=== PATIENT | female | born 1945 | race Caucasian/White ===

== ENCOUNTER 2019-06-15 06:15 | Inpatient (IN) | payer OTHER ==
[2019-06-15] MEDS ORDERED: SODIUM CHLORIDE 1,000 ML IV STA (06:35)
--- NOTE | 2019-06-15 07:14 | PDOC ---
History of Present Illness <Elfego Mcgovern - Last Filed: 06/15/19 11:56> - History of Present Illness Initial Comments: Ms. Martínez is a 73 y/o female with PMH significant for anemia, DM, HTN, HLD, presenting today for two weeks of vomiting once per day and weakness. Reports that she has been vomiting for the past two weeks around once a day NBNB and went to see her PCP who told her it was viral gastroenteritis. Also reports that she has anemia and has felt "weak". Reports fever. Denies dizziness or shortness of breath. Denies headache/fall/chest pain/abdominal pain/changes in bowel/urinary symptoms. <Royal Weston - Last Filed: 06/15/19 18:47> - General Chief Complaint: Nausea/Vomiting Stated Complaint: VOMITING,WEAKNESS Time Seen by Provider: 06/15/19 07:08 Past History <Elfego Mcgovern - Last Filed: 06/15/19 11:56> - Past Medical History COPD: No Diabetes: Yes HTN: Yes Hypercholesterolemia: Yes - Psycho Social/Smoking Cessation Hx Smoking History: Never smoked Have you smoked in the past 12 months: No Information on smoking cessation initiated: No Hx Alcohol Use: No Drug/Substance Use Hx: No <Royal Weston - Last Filed: 06/15/19 18:47> - Past Medical History Allergies/Adverse Reactions: Allergies Allergy/AdvReac Type Severity Reaction Status Date / Time azithromycin [From Zithromax] Allergy Mild Verified 06/15/19 08:46 hydrochlorothiazide Allergy Mild Verified 06/15/19 06:40 [From Zestoretic] hydrocodone Allergy Mild Verified 06/15/19 06:40 lisinopril [From Zestoretic] Allergy Mild Verified 06/15/19 06:40 meclizine Allergy Mild Verified 06/15/19 06:40 Home Medications: Ambulatory Orders Aspirin 81 mg PO DAILY 06/15/19 Atenolol [Tenormin -] 50 mg PO DAILY 06/15/19 Atorvastatin Ca [Lipitor] 10 mg PO HS 06/15/19 Calcium Carbonate [Oyster Shell Calcium] 500 mg PO DAILY 06/15/19 Cholecalciferol (Vitamin D3) [Vitamin D3] 1,000 unit PO DAILY 06/15/19 Glipizide/Metformin HCl [Glipizide-Metformin 5-500 mg] 1 each PO BID 06/15/19 Omeprazole 40 mg PO DAILY 06/15/19 Sitagliptin Phosphate [Januvia] 50 mg PO BID 06/15/19 Telmisartan/Hydrochlorothiazid [Telmisartan-Hctz 80-12.5 mg Tb] 1 each PO DAILY 06/15/19 Review of Systems - Review of Systems Comments:: ROS GENERAL/CONSTITUTIONAL: Reports fever. No chills. Reports weakness. HEAD, EYES, EARS, NOSE AND THROAT: No change in vision. No change in hearing. No sore throat._ CARDIOVASCULAR: No chest pain or shortness of breath_ RESPIRATORY: Denies cough, hemoptysis_ GASTROINTESTINAL: Reports nausea and vomiting. No diarrhea or constipation._ GENITOURINARY: No dysuria, frequency, or change in urination._ MUSCULOSKELETAL: No joint or muscle swelling or pain. No neck or back pain._ SKIN: No rash_ NEUROLOGIC: No headache, vertigo, loss of consciousness, or change in strength/ sensation._ ENDOCRINE: No increased thirst. No abnormal weight change_ HEMATOLOGIC/LYMPHATIC: Reports anemia. No easy bleeding, or history of blood clots._ <Royal Weston - Last Filed: 06/15/19 18:47> *Physical Exam - Vital Signs Last Vital Signs Temp Pulse Resp BP Pulse Ox 99.5 F 112 H 18 110/55 L 97 06/15/19 09:14 06/15/19 11:01 06/15/19 11:01 06/15/19 11:01 06/15/19 11:01 <Elfego Mcgovern - Last Filed: 06/15/19 11:56> - Vital Signs Last Vital Signs Temp Pulse Resp BP Pulse Ox 97.5 F L 128 H 20 133/52 L 93 L 06/15/19 06:35 06/15/19 06:35 06/15/19 06:35 06/15/19 06:35 06/15/19 06:35 - Physical Exam Comments: GENERAL: Awake, alert, and oriented to person/place/time, in no acute distress_ HEAD: No signs of trauma, normocephalic, atraumatic _ EYES: PERRLA, EOMI, sclera anicteric, conjunctiva clear_ ENT: Hearing grossly normal, nares patent, oropharynx clear without exudates. No uvular deviation. Moist mucosa_ NECK: Normal ROM, supple, no lymphadenopathy, JVD, or masses_ LUNGS: No distress, speaks in full sentences, clear to auscultation bilaterally _ HEART: Regular rate and rhythm, normal S1 and S2, no murmurs appreciated, peripheral pulses normal and equal bilaterally._ ABDOMEN: Soft, nontender, normoactive bowel sounds. No guarding, no rebound. No masses_ EXTREMITIES: Normal inspection, Normal range of motion, no edema. No clubbing or cyanosis_ NEUROLOGICAL: Cranial nerves II through XII grossly intact. Normal speech, normal gait, no focal sensorimotor deficits _ SKIN: Warm, Dry, normal turgor, no rashes or lesions noted_ <Royal Weston - Last Filed: 06/15/19 18:47> ED Treatment Course - LABORATORY CBC & Chemistry Diagram: 06/15/19 07:38 06/15/19 07:00 - ADDITIONAL ORDERS Additional order review: Laboratory Results 06/15/19 06/15/19 06/15/19 09:04 08:00 07:38 PT with INR 15.40 H INR 1.30 H VBG pH 7.38 POC VBG pCO2 37.3 L POC VBG pO2 < 49 H VBG HCO3 21.5 L VBG O2 Sat (Otis) 51.6 L VBG Base Excess -2.7 L Sodium Potassium Chloride Carbon Dioxide Anion Gap BUN Creatinine Est GFR (CKD-EPI)AfAm Est GFR (CKD-EPI)NonAf Random Glucose Lactic Acid Calcium Total Bilirubin AST ALT Alkaline Phosphatase Troponin I Total Protein Albumin Lipase Urine Color Yellow Urine Appearance Cloudy Urine pH 5.0 Ur Specific [place] 1.032 Urine Protein 1+ H Urine Glucose (UA) Negative Urine Ketones Trace H Urine Blood 3+ H Urine Nitrite Negative Urine Bilirubin Negative Urine Urobilinogen 0.2 Ur Leukocyte Esterase Negative Urine WBC (Auto) 6 Urine RBC (Auto) 3 Urine Casts (Auto) 19 U Epithel Cells (Auto) 5.5 Urine Bacteria (Auto) 18.2 06/15/19 06/15/19 06/15/19 07:38 07:00 07:00 PT with INR INR VBG pH POC VBG pCO2 POC VBG pO2 VBG HCO3 VBG O2 Sat (Otis) VBG Base Excess Sodium 137 Potassium 3.5 Chloride 105 Carbon Dioxide 21 Anion Gap 12 BUN 24.9 H Creatinine 1.4 H Est GFR (CKD-EPI)AfAm 42.79 Est GFR (CKD-EPI)NonAf 36.92 Random Glucose 213 H Lactic Acid 3.0 H* Calcium 9.0 Total Bilirubin 0.5 AST 20 ALT 30 Alkaline Phosphatase 100 Troponin I < 0.02 Total Protein 6.8 Albumin 2.9 L Lipase 60 L Urine Color Urine Appearance Urine pH Ur Specific [place] Urine Protein Urine Glucose (UA) Urine Ketones Urine Blood Urine Nitrite Urine Bilirubin Urine Urobilinogen Ur Leukocyte Esterase Urine WBC (Auto) Urine RBC (Auto) Urine Casts (Auto) U Epithel Cells (Auto) Urine Bacteria (Auto) 06/15/19 07:38 RBC 3.88 MCV 73.0 L MCHC 32.2 RDW 17.2 H MPV 6.9 L Neutrophils % 89.9 H Lymphocytes % 4.7 L Monocytes % 5.1 Eosinophils % 0.0 Basophils % 0.3 - Medications Given in the ED: ED Medications Discontinued Medications Generic Name Dose Route Start Last Admin Trade Name Maxx PRN Reason Stop Dose Admin Acetaminophen 1,000 mg 06/15/19 07:29 06/15/19 07:48 Ofirmev Injection - IVPB 06/15/19 07:30 1,000 mg ONCE ONE Administration Sodium Chloride 1,000 mls @ 1,000 mls/hr 06/15/19 06:35 06/15/19 07:39 Normal Saline - IV 06/15/19 07:34 1,000 mls/hr ASDIR STA Administration Lactated Ringer's 1,000 ml 06/15/19 07:29 06/15/19 09:13 Lactated Ringers Solution IV 06/15/19 07:30 1,000 ml ONCE ONE Administration <Elfego Mcgovern - Last Filed: 06/15/19 11:56> - LABORATORY CBC & Chemistry Diagram: 06/15/19 07:38 06/15/19 07:00 <Royal Weston - Last Filed: 06/15/19 18:47> Medical Decision Making - Medical Decision Making 06/15/19 07:30 73F hx DM HTN HLD anemia presenting with two weeks of intermittent vomiting, anemia, weakness. Seen by PCP x2 who attributed it to viral gastroenteritis. -CBC, CMP -UA/UC -EKG, trop, CXR -lipase, lactic acid -blood cx 06/15/19 0730 EKG shows sinus tachycardia, 126 bpm, no ST elevation/depression, no axis deviation, QTc 477. 06/15/19 08:07 Labs reviewed. WBC elevated. Mildly anemic. 06/15/19 08:29 Lactic acid elevated at 3.0. Will rpt after fluids. 06/15/19 1200 Rpt lactic acid 1.9 UA does not show signs of UTI D/w the hospitalist who agrees to accept the patient for sepsis. <Royal Weston - Last Filed: 06/15/19 18:47> Discharge - Discharge Information Problems reviewed: Yes - Admission Yes <Elfego Mcgovern - Last Filed: 06/15/19 11:56> <Royal Weston - Last Filed: 06/15/19 18:47> - Discharge Information Clinical Impression/Diagnosis: Sepsis Qualifiers: Sepsis type: sepsis due to unspecified organism Sepsis acute organ dysfunction status: unspecified Qualified Code(s): A41.9 - Sepsis, unspecified organism Condition: Stable
[2019-06-15] MEDS ORDERED: LACTATED RINGERS SOLUTION 1000 ML INFUS.BAG IV ONE (07:29)
[2019-06-15] MEDS ORDERED: ACETAMINOPHEN 1000 MG/100 ML VIAL (NON FORMULARY) IVPB ONE ×2 (07:29→16:50)
--- NOTE | 2019-06-15 07:29 | PDOC ---
Attending Attestation - Resident Resident Name: Rodger Westonhan - ED Attending Attestation I have performed the following: I have examined & evaluated the patient, The case was reviewed & discussed with the resident, I agree w/resident's findings & plan - HPI HPI: 06/15/19 08:43 73 y/o female with PMH significant for anemia, DM, HTN, HLD, presenting today for two weeks of vomiting once per day and generalized weakness. Reports that she has been vomiting for the past two weeks around once a day NBNB and went to see her PCP who told her it was viral gastroenteritis. Also reports that she has anemia and has felt "weak". Reports subjective fever, but did not take temp. decreased PO intake and fluids. Denies headache/fall/chest pain/abdominal pain/changes in bowel/urinary symptoms. Denies dizziness or shortness of breath. - Physicial Exam PE: 06/15/19 07:40 Agree with the resident's HPI and PE as documented in the electronic medical record. NAD, well appearing, EOMI, PERRL, nl conjunctiva, anicteric, very dry mucus membranes; neck supple. lungs clear, no respiratory distress, comfortable on RA.. +tachycardia. abdomen soft nontender. no rebound, guarding. Back nontender. no CVAT. GRANGER x4, no focal neuro deficits. No peripheral edema. normal color for ethnicity, WWP. no rashes 06/15/19 08:42 - Medical Decision Making 06/15/19 07:29 Vital Signs Temp Pulse Resp BP Pulse Ox 97.5 F L 128 H 20 133/52 L 93 L 06/15/19 06:35 06/15/19 06:35 06/15/19 06:35 06/15/19 06:35 06/15/19 06:35 VS reviewed, +febrile rectally, +tachycardic. normotensive, borderline sats DDX. pneumonia, viral syndrome, influenza/RSV, UTI, anemia, electrolyte/ metabolic derangements, dehydration. Basic laboratory results with significant leukocytosis of 20 1.8K, creatinine elevation 1.4, likely prerenal versus dehydration. Lactic elevated at 3, getting hydration and will repeat lactic UA neg for infection cxr clear, no pna given IV hydration. antipyretics. admit for FUO, pend cultures, holding abx for now, no clear source admit to [facility], ID cs as inpatient. 06/15/19 08:43 06/15/19 08:54 06/15/19 18:22
[2019-06-15] MEDS ORDERED: ACETAMINOPHEN INJECTION 100 ML IVPB ONE (07:42)
[2019-06-15 07:48] LABS: BASO % 0.3 % (0-2.0); HEMATOCRIT 28.3 % (32.4-45.2); HEMOGLOBIN 9.1 GM/dL (10.7-15.3); LYMPH % 4.7 % (8-40); MCH 23.5 pg (25.7-33.7); MCHC 32.2 g/dl (32.0-36.0); MEAN PLT VOLUME 6.9 fl (7.5-11.1); MONO % 5.1 % (3.8-10.2); NEUT % 89.9 % (42.8-82.8); PLATELET COUNT 415 K/MM3 (134-434); RBC 3.88 M/mm3 (3.60-5.2); RDW 17.2 % (11.6-15.6); WHITE BLOOD COUNT 21.8 K/mm3 (4.0-10.0)
[2019-06-15 08:00] LABS: INR 1.3 (0.83-1.09); PROTHROMBIN TIME (PATIENT) 15.4 SEC (9.7-13.0)
[2019-06-15 08:02] LABS: ALBUMIN 2.9 g/dl (3.4-5.0); BILIRUBIN,TOTAL 0.5 mg/dL (0.2-1); BLOOD UREA NITROGEN 24.9 mg/dL (7-18); CREATININE 1.4 mg/dL (0.55-1.3); TOT PROT 6.8 g/dl (6.4-8.2)
[2019-06-15 08:03] LABS: POTASSIUM 3.5 mmol/L (3.5-5.1)
[2019-06-15 08:17] LABS: VENOUS PC02 37.3 mmHg (38-52); VENOUS PH 7.38 (7.31-7.41)
[2019-06-15 08:24] LABS: VENOUS PO2 < 49 mmHg (28-48)
[2019-06-15 09:37] LABS: EPI CELLS 5.5 /HPF (0-5/HPF); HYALINE CASTS 19 /lpf (0-8); URINE APPEARANCE CLOUDY; URINE BACTERIA 18.2 /hpf (NEGATIVE); URINE BILIRUBIN NEGATIVE (NEGATIVE); URINE COLOR YELLOW; URINE GLUCOSE (UA) NEGATIVE (NEGATIVE); URINE KETONE TRACE (NEGATIVE); URINE LEUK ESTERASE NEGATIVE (NEGATIVE); URINE NITRITE NEGATIVE (NEGATIVE); URINE PROTEIN 1+ (NEGATIVE); URINE RBC 3 /hpf (0-4); URINE UROBILINOGEN 0.2 mg/dL (0.2-1.0); URINE WBC 6 /hpf (0-5)
[2019-06-15] MEDS ORDERED: METOCLOPRAMIDE HCL INJECTION 10 MG/2 ML VIAL IVPUSH PRN (11:11)
[2019-06-15] MEDS: SODIUM CHLORIDE 1,000 ML IV SCH (11:26)
[2019-06-15 12:22] LABS: ANISOCYTOSIS 1+; MACROCYTOSIS 0; OVALOCYTE 1+; PLATELET ESTIMATE NORMAL; TARGET CELLS 1+; TEAR DROP CELLS 1+
[2019-06-15] MEDS ORDERED: PROCHLORPERAZINE MALEATE 5 MG TABLET PO PRN (12:25)
[2019-06-15 12:31] VITALS: BMI 26.4
[2019-06-15] MEDS ORDERED: PROCHLORPERAZINE INJECTION 10 MG/2 ML VIAL IVPB PRN (13:03)
--- NOTE | 2019-06-15 13:14 | HP ---
CHIEF COMPLAINT: nausea vomting PCP:Dr. Gustavo Knowles HISTORY OF PRESENT ILLNESS: Patient is a 73 y/o female with a history of anemia, DM, HTN, and HLD who presents for nausea and vomiting. For the past two weeks the patient has been nauseous and vomiting. She has seen two different doctors who told her it is likely viral gastroenteritis but her symptoms have not resolved. She vomits 1-2 times a day and it is not associated with a certain time or food. She does not have any sick contacts. She denies ever having this before. The vomit is either food or water, denies any blood. She has never had a colonoscopy or endoscopy. Last monday she sent off a stool sample through her PCP for colon screening. She reports she has some mid back pain that has been going on for longer then two weeks. Her last bowel movement was this morning, small but normal. Denies any diarrhea. She denies fevers, chills, dysuria, headache or chest pain. Per patient her sugars are controlled in the morning but not typically controlled in the afternoon. ER course was notable for: (1)NS 2 L, lactic from 3>1.9 (2) (3) Recent Travel: PAST MEDICAL HISTORY: anemia, DM, HTN, and HLD PAST SURGICAL HISTORY:skin tag removed below left eye Social History: Smoking: denies Alcohol: denies Drugs: denies Allergies azithromycin [From Zithromax] Allergy (Mild, Verified 06/15/19 08:46) hydrochlorothiazide [From Zestoretic] Allergy (Mild, Verified 06/15/19 06:40) hydrocodone Allergy (Mild, Verified 06/15/19 06:40) lisinopril [From Zestoretic] Allergy (Mild, Verified 06/15/19 06:40) meclizine Allergy (Mild, Verified 06/15/19 06:40) HOME MEDICATIONS: Home Medications Medication Instructions Recorded Aspirin 81 mg PO DAILY 06/15/19 Atenolol [Tenormin -] 50 mg PO DAILY 06/15/19 Atorvastatin Ca [Lipitor] 10 mg PO HS 06/15/19 Calcium Carbonate [Oyster Shell 500 mg PO DAILY 06/15/19 Calcium] Cholecalciferol (Vitamin D3) 1,000 unit PO DAILY 06/15/19 [Vitamin D3] Glipizide/Metformin HCl 1 each PO BID 06/15/19 [Glipizide-Metformin 5-500 mg] Omeprazole 40 mg PO DAILY 06/15/19 Sitagliptin Phosphate [Januvia] 50 mg PO BID 06/15/19 Telmisartan/Hydrochlorothiazid 1 each PO DAILY 06/15/19 [Telmisartan-Hctz 80-12.5 mg Tb] REVIEW OF SYSTEMS CONSTITUTIONAL: Absent: fever, chills, diaphoresis, generalized weakness, malaise, loss of appetite, weight change HEENT: Absent: rhinorrhea, nasal congestion, throat pain, throat swelling, difficulty swallowing, mouth swelling, ear pain, eye pain, visual changes CARDIOVASCULAR: Absent: chest pain, syncope, palpitations, irregular heart rate, lightheadedness , peripheral edema RESPIRATORY: Absent: cough, shortness of breath, dyspnea with exertion, orthopnea, wheezing, stridor, hemoptysis GASTROINTESTINAL: nausea, vomiting, Absent: abdominal pain, abdominal distension, diarrhea, constipation, melena, hematochezia GENITOURINARY: Absent: dysuria, frequency, urgency, hesitancy, hematuria, flank pain, genital pain MUSCULOSKELETAL: Absent: myalgia, arthralgia, joint swelling, back pain, neck pain SKIN: Absent: rash, itching, pallor HEMATOLOGIC/IMMUNOLOGIC: Absent: easy bleeding, easy bruising, lymphadenopathy, frequent infections ENDOCRINE: Absent: unexplained weight gain, unexplained weight loss, heat intolerance, cold intolerance NEUROLOGIC: Absent: headache, focal weakness or paresthesias, dizziness, unsteady gait, seizure, mental status changes, bladder or bowel incontinence PSYCHIATRIC: Absent: anxiety, depression, suicidal or homicidal ideation, hallucinations. PHYSICAL EXAMINATION Vital Signs Temperature 98.7 F 06/15/19 12:17 Pulse Rate 116 H 06/15/19 12:17 Respiratory Rate 18 06/15/19 12:17 Blood Pressure 150/77 06/15/19 12:17 O2 Sat by Pulse Oximetry (%) 97 06/15/19 12:17 GENERAL: Awake, alert, and fully oriented, in no acute distress. HEAD: Normal with no signs of trauma. EYES: Pupils equal, round and reactive to light, extraocular movements intact, EARS, NOSE, THROAT: Moist mucous membranes. NECK: Normal range of motion, supple without lymphadenopathy, JVD, or masses. LUNGS: Breath sounds equal, clear to auscultation bilaterally. No wheezes, and no crackles. No accessory muscle use. HEART: tachy and rhythm, normal S1 and S2 without murmur, rub or gallop. ABDOMEN: Soft, nontender, not distended, normoactive bowel sounds, no guarding, no rebound, no masses. MUSCULOSKELETAL: tenderness to palpation over mid thoracic LOWER EXTREMITIES: 2+ pulses, warm, well-perfused. No calf tenderness. No peripheral edema. NEUROLOGICAL: sensation intact b/l, strength intact PSYCHIATRIC: Cooperative. Good eye contact. Appropriate mood and affect. SKIN: Warm, dry, normal turgor, no rashes or lesions noted, normal capillary refill. CBC, BMP 06/15/19 07:38 06/15/19 07:00 ASSESSMENT/PLAN: Patient is a 73 y/o female with a history of anemia, DM, HTN, and HLD who presents for nausea and vomiting. #Sepsis 2/2 to unknown source, nausea and vomiting - CXR clear for PNA, UA clear for UTI, possible abdominal source - f/u abd/pelvis CT w/o contrast - lactic acid resolved with NS, will continue NS - tylenol for fever or pain - hold htn medicine in setting of sepsis - QTC 477, compazine for nausea - protonix 40 IV daily #Mid back pain, chronic - likely age related arthritis vs fx - monitor for changes, if present low suscpicion for abscess as source of sepsis - tylenol for pain control #DELBERT - likely prerenal 2/2 to spesis - continue to trend creatinine - continue fluids #DM - BGM ACHS - SS - f/u A1C, r/o gastroparesis DVT ppx - heparin with elevated DELBERT FEN - low sodium, los sugar diet - NS DIspo: monitor on med surg Visit type - Emergency Visit Emergency Visit: Yes ED Registration Date: 06/15/19 Care time: The patient presented to the Emergency Department on the above date and was hospitalized for further evaluation of their emergent condition. - New Patient This patient is new to me today: Yes Date on this admission: 06/16/19 - Critical Care Critical Care patient: No ATTENDING PHYSICIAN STATEMENT I saw and evaluated the patient. I reviewed the resident's note and discussed the case with the resident. I agree with the resident's findings and plan as documented. SUBJECTIVE: OBJECTIVE: ASSESSMENT AND PLAN:
[2019-06-15] MEDS: HEPARIN NA (PORCINE) 5,000 UNITS/ML 1ML VIAL SQ SCH ×2 (13:30→22:37)
--- NOTE | 2019-06-15 13:46 | PN ---
Teaching Attending Note Name of Resident: Mary Camacho ATTENDING PHYSICIAN STATEMENT I saw and evaluated the patient. I reviewed the resident's note and discussed the case with the resident. I agree with the resident's findings and plan as documented. SUBJECTIVE: CC: N/V. HPI: 73 y/o lady with h/o DM , HTN, HLP, anemia, who presented with 2 week hx of N/V. her sx started 2 weeks ago and consist of nausea and vomiting twice a day, with no trigger. lately she was not able to tolerate any PO intake , last meal was soup yesterday. No fever at home but had one in ER. she saw her doctor twice in past two weeks and was told it is viral infection. she denies abd pain, or hematomesis or hematochezia. she has no FAIRBANKS , no rash, no sore throat, no FAIRBANKS . she reported back pain in middle of the back that started 2 weeks ago. she denies any trauma to the back. she does not have chronic back pain. she denies urinary sx . she denies diarrhea, but during exam she had stool on her leg from groin down to the foot. in ER , she had blood work and blood cx were sent OBJECTIVE: NAD. awake, alert, cooperative HEENT: Dry MM, no LAP in neck . Nl oropharynx, no thrush, Cv; RRR, 2/6 SM at LUSB Lungs: CATB. Abd: soft, NT, ND, nl BS . Ext : no edema or erythema over upper or LE . skiin no rash MS: no TTP over the whole spine and the paraspinal muscles Neuro: round equal reactive pupils, EOMI, no facial droop. uvula and tongue at mid line. strength 5/5 in upper and lower extremities proximally and distally . ( can't evaluate knee flexion and extension due to arthritis ) Cxray reviewed. EKG: reviewed , sinus tachy, L axis, QTc 477. ASSESSMENT AND PLAN: 73 y/o lady with h/o DM , HTN, HLP, anemia, who presented with 2 week hx of N/ V. she was found to have sepsis 1- Sepsis: unclear source yet. with N/V will look for abdominal source. although she denied diarrhea, she has stool on her whole entire leg. - will start with abdomen and pelvis CT scan with po contrast. can't give IV due to DELBERT - send c diff and stool cx if diarrhea - follow lactic acid - if CT of abdomen is negative , will try to look for spine source. at this point, she has no tenderness over spine on my exam. - will start with plain xray to T-spine. - UA is clean and cxray with no signs of infection. - IVF. - NPO until Ct results come back , then clears - compazine for nausea - follow blood cx 2- H/o DM: SSI for now. 3- DELBERT: likely pre-renal in the setting of poor po intake. - cont IVF 4- h/o HTN: resume tenormine 5-
--- NOTE | 2019-06-15 15:19 | CON.ID ---
Consult Consult Specialty:: infectious diseases Referred by:: Reason for Consultation:: fever,sepsis,leukocytosis - History of Present Illness Chief Complaint: shivering ,chills History of Present Illness: history obtained from the patient and family friend as patient cannot speak turkish fluently 73 y/o female with a history of anemia, DM, HTN, and HLD who presents for nausea and vomiting. For the past two weeks the patient has been nauseous and vomiting. She has seen two different doctors who told her it is likely viral gastroenteritis but her symptoms have not resolved. She vomits 1-2 times a day and she brings out mainly water. She does not have any sick contacts. She denies ever having this before. The vomit is either food or water, denies any blood. Last monday she sent off a stool sample through her PCP for colon screening. She reports she has some mid back pain that has been going on for longer then two weeks. Her last bowel movement was this morning, small but normal. Denies any diarrhea. She denies fevers, chills, dysuria, headache or chest pain. she mentions that what really worried her is the shaking - History Source History Provided By: Patient, Friend Limitations to Obtaining History: Language Barrier - Alcohol/Substance Use Hx Alcohol Use: No - Smoking History Smoking history: Never smoked Have you smoked in the past 12 months: No Home Medications - Allergies Allergies/Adverse Reactions: Allergies Allergy/AdvReac Type Severity Reaction Status Date / Time azithromycin [From Zithromax] Allergy Mild Verified 06/15/19 08:46 hydrochlorothiazide Allergy Mild Verified 06/15/19 06:40 [From Zestoretic] hydrocodone Allergy Mild Verified 06/15/19 06:40 lisinopril [From Zestoretic] Allergy Mild Verified 06/15/19 06:40 meclizine Allergy Mild Verified 06/15/19 06:40 - Home Medications Home Medications: Ambulatory Orders Aspirin 81 mg PO DAILY 06/15/19 Atenolol [Tenormin -] 50 mg PO DAILY 06/15/19 Atorvastatin Ca [Lipitor] 10 mg PO HS 06/15/19 Calcium Carbonate [Oyster Shell Calcium] 500 mg PO DAILY 06/15/19 Cholecalciferol (Vitamin D3) [Vitamin D3] 1,000 unit PO DAILY 06/15/19 Glipizide/Metformin HCl [Glipizide-Metformin 5-500 mg] 1 each PO BID 06/15/19 Omeprazole 40 mg PO DAILY 06/15/19 Sitagliptin Phosphate [Januvia] 50 mg PO BID 06/15/19 Telmisartan/Hydrochlorothiazid [Telmisartan-Hctz 80-12.5 mg Tb] 1 each PO DAILY 06/15/19 Review of Systems - Review of Systems Constitutional: reports: Chills, Fever Eyes: reports: No Symptoms HENT: reports: No Symptoms Neck: reports: No Symptoms Cardiovascular: reports: No Symptoms Respiratory: reports: No Symptoms Gastrointestinal: reports: Bloating, Diarrhea, Nausea, Vomiting Genitourinary: reports: No Symptoms Musculoskeletal: reports: No Symptoms Integumentary: reports: No Symptoms Neurological: reports: No Symptoms Endocrine: reports: No Symptoms Hematology/Lymphatic: reports: No Symptoms Psychiatric: reports: No Symptoms Physical Exam Vital Signs: Vital Signs Temperature 98.7 F 06/15/19 12:17 Pulse Rate 116 H 06/15/19 12:17 Respiratory Rate 18 06/15/19 12:17 Blood Pressure 150/77 06/15/19 12:17 O2 Sat by Pulse Oximetry (%) 97 06/15/19 12:17 Constitutional: Yes: Calm, Mild Distress, Other Eyes: Yes: Conjunctiva Clear, EOM Intact HENT: Yes: Atraumatic, Normocephalic Neck: Yes: Supple, Trachea Midline Cardiovascular: Yes: Regular Rate and Rhythm Respiratory: Yes: Regular, CTA Bilaterally Gastrointestinal: Yes: Soft, Hypoactive Bowel Sounds Musculoskeletal: Yes: WNL Extremities: Yes: WNL Neurological: Yes: Alert, Oriented Psychiatric: Yes: Alert, Oriented Labs: CBC, BMP 06/15/19 07:38 06/15/19 07:00 Imaging - Results Chest X-ray: Report Reviewed, Image Reviewed Assessment/Plan this patient who is septic looking coming to the hospital with fever,chills leukocytosis and not feeling well i have a suspicion that the pathology could be in the belly i am going to start her on zosyn also would suggest to get a ct of the abd pelvis and chest consider keeping pt npo for now hydration also viral await for all the cx once we have something we will decide further monitor fevers and wbc
[2019-06-15] MEDS ORDERED: DEXTROSE 5%-WATER - 50 ML IVPB ONE ×2 (15:32→18:38)
[2019-06-15] MEDS ORDERED: PIPERACILLIN/TAZOBACTAM 3.375 GM VIAL IVPB ONE ×2 (15:32→18:37)
[2019-06-15] MEDS: PIPERACILLIN/TAZOB 3.375 GM 3.375 GM in DEXTROSE 5%-WATER - 50 ML IVPB SCH ×2 (15:37→18:46)
[2019-06-15] MEDS ORDERED: PT OWN MED DRAWER 7, Y5N ONE (15:44)
[2019-06-15] MEDS ORDERED: INSULIN SLIDING SCALE (NOVOLOG) 1 VIAL SQ SCH (16:30)
[2019-06-15 17:58] LABS: URINE CRYSTALS MODERATE /hpf
--- NOTE | 2019-06-15 22:18 | HOSP ---
Subjective - Review of Symptoms Events since last encounter: ABD/CT indicative of stone in ureter, patient septic with positive blood cultures. Spoke to Urology, Dr. Villafana, patient needs urgent stent placement. He will come in [facility] to place stent. Patient on Zosyn. Physical Examination Vital Signs: Vital Signs Temperature 103 F H 06/15/19 16:47 Pulse Rate 118 H 06/15/19 16:47 Respiratory Rate 18 06/15/19 16:47 Blood Pressure 160/70 06/15/19 16:47 O2 Sat by Pulse Oximetry (%) 97 06/15/19 12:17 Labs: CBC, BMP 06/15/19 07:38 06/15/19 07:00 Visit type - Emergency Visit Emergency Visit: Yes ED Registration Date: 06/15/19 Care time: The patient presented to the Emergency Department on the above date and was hospitalized for further evaluation of their emergent condition. - New Patient This patient is new to me today: Yes Date on this admission: 06/16/19 - Critical Care Critical Care patient: No
[2019-06-15] MEDS ORDERED: ONDANSETRON 4 MG/2 ML VIAL IVPUSH PRN (22:37)
[2019-06-15] MEDS: INSULIN SLIDING SCALE (NOVOLOG) 1 VIAL SQ SCH (22:43)
[2019-06-15] MEDS ORDERED: LIDOCAINE HCL/PF 2% SDV 5ML VIAL ONE (22:44)
[2019-06-15] MEDS ORDERED: KETOROLAC TROMETHAMINE 30 MG/1 ML VIAL ONE (22:44)
[2019-06-15] MEDS ORDERED: PROPOFOL 20 ML ONE ×2 (22:45)
[2019-06-15] MEDS ORDERED: LACTATED RINGERS SOLUTION 1,000 ML IV SCH (22:45)
[2019-06-15] MEDS ORDERED: SUCCINYLCHOLINE CHLORIDE 200 MG/10 ML SYRINGE ONE (22:45)
[2019-06-15] MEDS ORDERED: PHENYLEPHRINE HCL 10 MG/1 ML SINGLE DOSE VIAL ONE (23:53)
[2019-06-16] MEDS ORDERED: EPHEDRINE SULFATE/0.9% NACL/PF 50 MG/10 ML SYRINGE NR ONE (00:04)
[2019-06-16] MEDS ORDERED: ESMOLOL HCL 200,000 MCG/20 ML VIAL ONE (00:07)
[2019-06-16] MEDS ORDERED: ACETAMINOPHEN 1000 MG/100 ML VIAL (NON FORMULARY) IVPB ONE (00:26)
[2019-06-16] MEDS ORDERED: LACTATED RINGERS SOLUTION 1,000 ML IV SCH (00:35)
[2019-06-16] MEDS ORDERED: METOPROLOL TARTRATE 5 MG/5 ML VIAL ONE ×2 (00:50→00:59)
[2019-06-16] MEDS ORDERED: ADENOSINE 6 MG/2 ML VIAL IVPUSH ONE (00:56)
[2019-06-16] MEDS ORDERED: METOPROLOL TARTRATE 5 MG/5 ML VIAL IVPUSH ONE (01:06)
[2019-06-16] MEDS ORDERED: PIPERACILLIN/TAZOBACTAM 3.375 GM VIAL IVPB ONE ×3 (01:48→17:39)
[2019-06-16] MEDS ORDERED: DEXTROSE 5%-WATER - 50 ML IVPB ONE ×3 (01:48→17:39)
[2019-06-16] MEDS ORDERED: PIPERACILLIN/TAZOB 3.375 GM 3.375 GM in DEXTROSE 5%-WATER - 50 ML IVPB SCH (02:15)
[2019-06-16] MEDS: PIPERACILLIN/TAZOB 3.375 GM 3.375 GM in DEXTROSE 5%-WATER - 50 ML IVPB SCH ×3 (02:20→17:45)
[2019-06-16] MEDS: sitaGLIPtin PHOSPHATE 50 MG TABLET PO SCH ×2 (06:38→16:30)
[2019-06-16] MEDS: HEPARIN NA (PORCINE) 5,000 UNITS/ML 1ML VIAL SQ SCH ×3 (06:38→21:08)
[2019-06-16] MEDS: INSULIN SLIDING SCALE (NOVOLOG) 1 VIAL SQ SCH ×3 (06:39→16:31)
[2019-06-16] MEDS ORDERED: glipiZIDE 5 MG TABLET (FP) PO SCH (07:00)
[2019-06-16] MEDS ORDERED: metFORMIN HCL 500 MG TABLET (FP) PO SCH (07:00)
[2019-06-16 07:43] LABS: BASO % 0.2 % (0-2.0); EOS % 0.4 % (0-4.5); HEMATOCRIT 23.9 % (32.4-45.2); HEMOGLOBIN 7.6 GM/dL (10.7-15.3); LYMPH % 7.4 % (8-40); MCH 23.1 pg (25.7-33.7); MCHC 31.8 g/dl (32.0-36.0); MEAN CELL VOLUME 72.6 fl (80-96); MEAN PLT VOLUME 7.2 fl (7.5-11.1); MONO % 3.5 % (3.8-10.2); NEUT % 88.5 % (42.8-82.8); PLATELET COUNT 276 K/MM3 (134-434); RBC 3.29 M/mm3 (3.60-5.2); RDW 17.5 % (11.6-15.6); WHITE BLOOD COUNT 17.8 K/mm3 (4.0-10.0)
--- NOTE | 2019-06-16 07:52 | CONS ---
DATE OF CONSULTATION: DATE OF DICTATION: 06/16/2019 Patient came to the emergency room, reported with a 2-week history of nausea and simply not feeling well. Patient was evaluated and reported also that she had been vomiting a number of times over the past 2 weeks. CAT scan was performed and revealed an obstructing calculus in the upper aspect of the left kidney approximately 9 x 13. Patient has been given IV Zosyn and will be brought to the operating room for placement of a ureteral stent with plans to address the obstructing stone at a later date. MD JEREMY SWAIN/[id number]
--- NOTE | 2019-06-16 08:04 | OP ---
DATE OF OPERATION: 06/16/2019 PREOPERATIVE DIAGNOSIS: Urosepsis with pedunculated left ureteral calculi. POSTOPERATIVE DIAGNOSIS: Urosepsis with pedunculated left ureteral calculi. PROCEDURE: Cystoscopy, left retrograde and placement of a left ureteral stent. DESCRIPTION OF PROCEDURE: Patient brought into the operating room where, after satisfactory general anesthesia using the Ventimask, she was carefully placed in lithotomy after the timeout was performed, then prepped and draped in the usual sterile fashion. Patient already had IV Zosyn on board. A 23-Australian cystoscope was passed per urethra into the bladder. The bladder was examined. There were no lesions in the bladder. Patient did have a lot of particulate matter and what appeared to be granules of sand in the bladder. The left orifice was identified and intubated with a Sensor wire over which a straight catheter was placed and then advanced proximally in the left ureter. Retrograde was performed and revealed an almost complete obstruction just distal to the left UPJ. The wire was reintroduced through the open-ended catheter and after some manipulation advanced into the left renal pelvis. A 6-Australian 24-cm in length double pigtail catheter with the string removed was then advanced over the wire and positioned with a curl in the renal pelvis confirmed on fluoroscopy and distally it was noted to curl in the bladder. Bladder was drained. Patient tolerated the procedure well. There were no complications and patient left the OR stable in satisfactory condition. MD JEREMY SWAIN/[id number]
[2019-06-16 08:21] LABS: ALBUMIN 2.1 g/dl (3.4-5.0); BILIRUBIN,TOTAL 0.4 mg/dL (0.2-1); BLOOD UREA NITROGEN 24.2 mg/dL (7-18); CALCIUM 7.6 mg/dL (8.5-10.1); CREATININE 1.3 mg/dL (0.55-1.3); MAGNESIUM 1.5 mg/dL (1.8-2.4); PHOSPHOROUS 4.1 mg/dL (2.5-4.9); POTASSIUM 3.4 mmol/L (3.5-5.1); TOT PROT 5.3 g/dl (6.4-8.2)
[2019-06-16] MEDS ORDERED: PATIENT'S OWN MEDICATION (NON-FORMULARY) (Omeprazole 40 MG) PO SCH (10:00)
[2019-06-16] MEDS ORDERED: PATIENT'S OWN MEDICATION (NON-FORMULARY) (Glipizide/Metformin Hcl [Glipizide-Metformin 5-5 PO SCH (10:00)
[2019-06-16] MEDS ORDERED: PATIENT'S OWN MEDICATION (NON-FORMULARY) (Telmisartan/Hydrochlorothiazid [Telmisartan-Hctz PO SCH (10:00)
[2019-06-16] MEDS ORDERED: HYDROCHLOROTHIAZIDE 12.5 MG CAPSULE (FP) PO SCH (10:00)
[2019-06-16] MEDS: VALSARTAN 160 MG TABLET (UD) PO SCH (10:13)
[2019-06-16] MEDS: ATENOLOL 50 MG TABLET (FP) PO SCH (10:13)
[2019-06-16] MEDS: ASPIRIN 81 MG CHEWABLE TABLETS PO SCH (10:13)
[2019-06-16] MEDS: CHOLECALCIFEROL (VIT D3) 1,000 UNIT (25 MCG) TABLET PO SCH (10:13)
[2019-06-16] MEDS: CALCIUM (OYSTER SHELL) 500 MG TABLET (FP) PO SCH (10:13)
[2019-06-16] MEDS: PANTOPRAZOLE SODIUM 40 MG VIAL IVPUSH SCH (10:14)
--- NOTE | 2019-06-16 11:05 | PN ---
Progress Note, Physician History of Present Illness: patient feels and looks much better no complaint post stent placement - Current Medication List Current Medications: Active Medications Acetaminophen (Tylenol -) 650 mg PO Q4H PRN PRN Reason: PAIN LEVEL 6-10 Aspirin (Asa -) 81 mg PO DAILY [facility] Last Admin: 06/16/19 10:13 Dose: 81 mg Atenolol (Tenormin -) 50 mg PO DAILY [facility] Last Admin: 06/16/19 10:13 Dose: 50 mg Atorvastatin Calcium (Lipitor -) 10 mg PO HS [facility] Calcium Carbonate (Os-Neeraj 500mg -) 500 mg PO DAILY [facility] Last Admin: 06/16/19 10:13 Dose: 500 mg Cholecalciferol (Vitamin D3 -) 1,000 unit PO DAILY [facility] Last Admin: 06/16/19 10:13 Dose: 1,000 unit Glipizide (Glucotrol -) 5 mg PO BIDAC [facility] Last Admin: 06/16/19 06:38 Dose: 5 mg Heparin Sodium (Porcine) (Heparin -) 5,000 unit SQ TID [facility] Last Admin: 06/16/19 06:38 Dose: 5,000 unit Hydrochlorothiazide (Hctz -) 12.5 mg PO DAILY [facility] Last Admin: 06/16/19 10:13 Dose: 12.5 mg Sodium Chloride (Normal Saline -) 1,000 mls @ 100 mls/hr IV ASDIR [facility] Last Admin: 06/15/19 11:26 Dose: 100 mls/hr Piperacillin Sod/Tazobactam (Sod 3.375 gm/ Dextrose) 50 mls @ 100 mls/hr IVPB Q8H-IV [facility]; Protocol Last Admin: 06/16/19 10:14 Dose: 100 mls/hr Lactated Ringer's (Lactated Ringers Solution) 1,000 mls @ 125 mls/hr IV ASDIR [facility] Last Admin: 06/16/19 02:19 Dose: 125 mls/hr Piperacillin Sod/Tazobactam (Sod 3.375 gm/ Dextrose) 50 mls @ 150 mls/hr IVPB Q12H [facility] Stop: 06/17/19 02:14 Insulin Aspart (Novolog Vial Sliding Scale -) 1 vial SQ ACHS [facility]; Protocol Last Admin: 06/16/19 10:23 Dose: 2 units Metformin HCl (Glucophage -) 500 mg PO BIDAC [facility] Last Admin: 06/16/19 06:38 Dose: 500 mg Ondansetron HCl (Zofran Injection) 4 mg IVPUSH Q6H PRN PRN Reason: NAUSEA AND/OR VOMITING Stop: 06/16/19 22:36 Pantoprazole Sodium (Protonix Iv) 40 mg IVPUSH DAILY [facility] Last Admin: 06/16/19 10:14 Dose: 40 mg Prochlorperazine Edisylate (Compazine Injection -) 10 mg IVPB Q6H PRN PRN Reason: NAUSEA AND/OR VOMITING Last Admin: 06/15/19 14:17 Dose: 10 mg Sitagliptin Phosphate (Januvia -) 50 mg PO BIDAC [facility] Last Admin: 06/16/19 06:38 Dose: 50 mg Valsartan (Diovan -) 320 mg PO DAILY [facility] Last Admin: 06/16/19 10:13 Dose: 320 mg - Objective Vital Signs: Vital Signs Temperature 98 F 06/16/19 09:21 Pulse Rate 99 H 06/16/19 09:21 Respiratory Rate 18 06/16/19 09:21 Blood Pressure 136/66 06/16/19 09:21 O2 Sat by Pulse Oximetry (%) 98 06/16/19 09:00 Constitutional: Yes: No Distress, Calm Respiratory: Yes: Regular, CTA Bilaterally Gastrointestinal: Yes: Normal Bowel Sounds, Soft Musculoskeletal: Yes: WNL Extremities: Yes: WNL Neurological: Yes: Alert, Oriented Psychiatric: Yes: Alert, Oriented Labs: CBC, BMP 06/16/19 07:12 06/16/19 07:12 INR, PTT INR 1.30 (0.83-1.09) H 06/15/19 07:38 Assessment/Plan hydronephrosis ureteric stone leukocytosis gm negative bacteremia sepsis plan continue abx will order repeat blood cx continue monitoring wbc rest as per the team
[2019-06-16] MEDS ORDERED: POTASSIUM CHLORIDE TABS 20 MEQ TABLET.ER (FP) PO ONE (13:12)
[2019-06-16] MEDS ORDERED: MAGNESIUM SULF 50% (8.12 MEQ/2 ML-1 GM VIAL) IVPB ONE (13:12)
--- NOTE | 2019-06-16 13:18 | PN ---
Progress Note (short form) - Note Progress Note: Subjective: No fever or chills. No [place] , no pain. no N/V events over night were noted for stent placement by urology Objective: Vital Signs: Last Vital Signs Temp Pulse Resp BP Pulse Ox 98 F 99 H 18 136/66 98 06/16/19 09:21 06/16/19 09:21 06/16/19 09:21 06/16/19 09:21 06/16/19 09:00 Laboratory Results - last 24 hr 06/15/19 06/15/19 06/15/19 09:04 15:26 16:39 WBC RBC Hgb Hct MCV MCH MCHC RDW Plt Count MPV Absolute Neuts (auto) Neutrophils % Lymphocytes % Monocytes % Eosinophils % Basophils % Nucleated RBC % Sodium Potassium Chloride Carbon Dioxide Anion Gap BUN Creatinine Est GFR (CKD-EPI)AfAm Est GFR (CKD-EPI)NonAf POC Glucometer 161 186 Random Glucose Hemoglobin A1c % Calcium Phosphorus Magnesium Total Bilirubin AST ALT Alkaline Phosphatase Total Protein Albumin U Pathogenic Cast Auto None seen Urine Crystals (Auto) Moderate 06/15/19 06/16/19 06/16/19 22:24 06:10 07:12 WBC 17.8 H RBC 3.29 L Hgb 7.6 L Hct 23.9 L D MCV 72.6 L MCH 23.1 L MCHC 31.8 L RDW 17.5 H Plt Count 276 D MPV 7.2 L Absolute Neuts (auto) 15.8 H Neutrophils % 88.5 H Lymphocytes % 7.4 L D Monocytes % 3.5 L Eosinophils % 0.4 D Basophils % 0.2 Nucleated RBC % 0 Sodium Potassium Chloride Carbon Dioxide Anion Gap BUN Creatinine Est GFR (CKD-EPI)AfAm Est GFR (CKD-EPI)NonAf POC Glucometer 242 149 Random Glucose Hemoglobin A1c % Calcium Phosphorus Magnesium Total Bilirubin AST ALT Alkaline Phosphatase Total Protein Albumin U Pathogenic Cast Auto Urine Crystals (Auto) 06/16/19 06/16/19 06/16/19 07:12 07:12 10:19 WBC RBC Hgb Hct MCV MCH MCHC RDW Plt Count MPV Absolute Neuts (auto) Neutrophils % Lymphocytes % Monocytes % Eosinophils % Basophils % Nucleated RBC % Sodium 142 Potassium 3.4 L Chloride 110 H Carbon Dioxide 21 Anion Gap 10 BUN 24.2 H Creatinine 1.3 Est GFR (CKD-EPI)AfAm 46.80 Est GFR (CKD-EPI)NonAf 40.38 POC Glucometer 154 Random Glucose 189 H Hemoglobin A1c % 7.6 H Calcium 7.6 L Phosphorus 4.1 Magnesium 1.5 L Total Bilirubin 0.4 AST 14 L ALT 22 Alkaline Phosphatase 72 Total Protein 5.3 L Albumin 2.1 L U Pathogenic Cast Auto Urine Crystals (Auto) Physical Exam: NAD. Awake, alert, cooperative HEENT: MMM Cv; RRR, 2/6 SM at LUSB Lungs: CATB. Abd: soft, NT, ND, nl BS. Ext : no edema or erythema over upper or LE. ASSESSMENT AND PLAN: 73 y/o lady with h/o DM , HTN, HLP, anemia, who presented with 2 week hx of N/ V. she was found to have sepsis 1- Sepsis 2/2 pyelonephritis in the setting of an obstructing L ureteral stone. - s/p cystoscopy and retrograde uretrogram and stent placement. - leukocytosis and renal function improved after relieving the obstruction - Blood cx + GNB. will repeat today - cont Zosyn - d/w Dr. Manning - Cont IVF 2- Obstructive L ureteral stone with hydronephrosis: - case d/w Dr. Villafana. - suspicion for uric acid stone as it is not visible on xray. - start Potassium citrate - she will follow in uro clinic in few days after dc 3- H/o DM: SSI for now. 4- DELBERT: Cr improved. - cont IVF 5- h/o HTN: cont Tenormine. 6- Microcytic anemia Anemia: with acute drop . - check iron studies - occult blood in stool - rest of w/u as out pt 7- DVT px : heparin sq Visit type - Emergency Visit Emergency Visit: Yes ED Registration Date: 06/15/19 Care time: The patient presented to the Emergency Department on the above date and was hospitalized for further evaluation of their emergent condition. - New Patient This patient is new to me today: No - Critical Care Critical Care patient: No
[2019-06-16] MEDS: SODIUM CHLORIDE 1,000 ML IV SCH (14:43)
[2019-06-16] MEDS: POTASSIUM CITRATE/CITRIC ACID 2 MEQ/ML ML PO SCH (15:16)
[2019-06-16] MEDS: ATORVASTATIN CA 10 MG TABLET (FP) PO SCH (21:08)
[2019-06-17] MEDS ORDERED: DEXTROSE 5%-WATER - 50 ML IVPB ONE ×2 (01:05→09:07)
[2019-06-17] MEDS ORDERED: PIPERACILLIN/TAZOBACTAM 3.375 GM VIAL IVPB ONE ×2 (01:05→09:07)
[2019-06-17] MEDS: PIPERACILLIN/TAZOB 3.375 GM 3.375 GM in DEXTROSE 5%-WATER - 50 ML IVPB SCH (01:41)
[2019-06-17] MEDS: SODIUM CHLORIDE 1,000 ML IV SCH ×3 (01:46→13:39)
[2019-06-17] MEDS: ACETAMINOPHEN 325 MG TABLET (FP) PO PRN ×2 (02:47→13:38)
[2019-06-17] MEDS ORDERED: INSULIN (NOVOLOG) ASPART 100 UNITS/ML 10ML VIAL ONE (06:09)
[2019-06-17] MEDS: INSULIN SLIDING SCALE (NOVOLOG) 1 VIAL SQ SCH ×3 (06:20→17:26)
[2019-06-17] MEDS: sitaGLIPtin PHOSPHATE 50 MG TABLET PO SCH ×2 (06:20→17:26)
[2019-06-17] MEDS: HEPARIN NA (PORCINE) 5,000 UNITS/ML 1ML VIAL SQ SCH ×3 (06:20→21:52)
[2019-06-17 07:32] LABS: BASO % 0.4 % (0-2.0); EOS % 0.9 % (0-4.5); HEMATOCRIT 24.6 % (32.4-45.2); HEMOGLOBIN 7.9 GM/dL (10.7-15.3); LYMPH % 7.6 % (8-40); MCH 23.3 pg (25.7-33.7); MCHC 31.9 g/dl (32.0-36.0); MEAN PLT VOLUME 7.5 fl (7.5-11.1); MONO % 3.9 % (3.8-10.2); NEUT % 87.2 % (42.8-82.8); PLATELET COUNT 262 K/MM3 (134-434); RBC 3.37 M/mm3 (3.60-5.2); RDW 17.4 % (11.6-15.6); WHITE BLOOD COUNT 12.9 K/mm3 (4.0-10.0)
[2019-06-17 08:16] LABS: BLOOD UREA NITROGEN 25.5 mg/dL (7-18); CALCIUM 7.9 mg/dL (8.5-10.1); CREATININE 1.2 mg/dL (0.55-1.3); MAGNESIUM 2.1 mg/dL (1.8-2.4); PHOSPHOROUS 2.9 mg/dL (2.5-4.9); POTASSIUM 3.7 mmol/L (3.5-5.1)
--- NOTE | 2019-06-17 09:46 | PN ---
Teaching Attending Note Name of Resident: Mary Doug ATTENDING PHYSICIAN STATEMENT I saw and evaluated the patient. I reviewed the resident's note and discussed the case with the resident. I agree with the resident's findings and plan as documented. SUBJECTIVE: Blowing Engineer Andres [id number] was used She has no abd pain, she feels better today. No N/V. had fever last night . OBJECTIVE: NAD. Awake, alert, cooperative HEENT: MMM, no facial droop Cv; RRR, 2/6 SM at LUSB Lungs: CATB. Abd: soft, NT, ND, nl BS.No CVA tenderness Ext: no edema or erythema over upper or LE. ASSESSMENT AND PLAN: 73 y/o lady with h/o DM , HTN, HLP, anemia, who presented with 2 week hx of N/ V. she was found to have sepsis 1- Sepsis 2/2 pyelonephritis in the setting of an obstructing L ureteral stone. Suspicion for uric acid stone - s/p cystoscopy and retrograde ureterogram and stent placement. - clinically improved and leukocytosis improved. but she is still having fevers - Blood cx with ESBL producing E coli. - change abx form zosyn to Ertapenem - ID eval pending for today -follow repeat blood cx today - Cont but decrease IVF 2- Obstructive L ureteral stone with hydronephrosis: - suspicion for uric acid stone as it is not visible on xray. - cont Potassium citrate - she will follow in uro clinic in few days after dc - She was made aware of the o=importance of f/u for stent removal 3- H/o DM: SSI for now. 4- DELBERT: Cr improved. - cont IVF 5- h/o HTN: cont Tenormine. 6- Microcytic anemia Anemia: with acute drop likley due to dilution. no signs of active bleed - iron studies pending - occult blood in stool - rest of w/u as out pt 7- Urinary retention : voiding trials. place bowers if needed 8- DVT px : heparin sq All above was explained to patient in details using skates operator phone
--- NOTE | 2019-06-17 10:17 | EKG ---
Test Reason : Blood Pressure : / mmHG Vent. Rate : 099 BPM Atrial Rate : 099 BPM P-R Int : 122 ms QRS Dur : 096 ms QT Int : 388 ms P-R-T Axes : 038 007 -02 degrees QTc Int : 497 ms NORMAL SINUS RHYTHM PROLONGED QT ABNORMAL ECG WHEN COMPARED WITH ECG OF 15-JUN-2019 07:01, ABERRANT CONDUCTION IS NO LONGER PRESENT Confirmed by RAIMUNDO WILSON MD ([id number]) on 06/17/2019 10:17:03 AM Referred By: Confirmed By:RAIMUNDO WILSON MD
[2019-06-17] MEDS: VALSARTAN 160 MG TABLET (UD) PO SCH (10:19)
[2019-06-17] MEDS: ASPIRIN 81 MG CHEWABLE TABLETS PO SCH (10:19)
[2019-06-17] MEDS: CALCIUM (OYSTER SHELL) 500 MG TABLET (FP) PO SCH (10:19)
[2019-06-17] MEDS: ATENOLOL 50 MG TABLET (FP) PO SCH (10:19)
[2019-06-17] MEDS: CHOLECALCIFEROL (VIT D3) 1,000 UNIT (25 MCG) TABLET PO SCH (10:19)
[2019-06-17] MEDS: POTASSIUM CITRATE/CITRIC ACID 2 MEQ/ML ML PO SCH (10:20)
[2019-06-17] MEDS: PANTOPRAZOLE SODIUM 40 MG VIAL IVPUSH SCH (10:20)
--- NOTE | 2019-06-17 10:55 | EKG ---
Test Reason : Blood Pressure : / mmHG Vent. Rate : 126 BPM Atrial Rate : 126 BPM P-R Int : 134 ms QRS Dur : 088 ms QT Int : 330 ms P-R-T Axes : 037 -01 012 degrees QTc Int : 477 ms SINUS TACHYCARDIA WITH PREMATURE ATRIAL COMPLEXES WITH ABERRANT CONDUCTION VOLTAGE CRITERIA FOR LEFT VENTRICULAR HYPERTROPHY NONSPECIFIC ST ABNORMALITY ABNORMAL ECG NO PREVIOUS ECGS AVAILABLE Confirmed by RAIMUNDO WILSON MD ([id number]) on 06/17/2019 10:54:43 AM Referred By: Confirmed By:RAIMUNDO WILSON MD
--- NOTE | 2019-06-17 11:37 | PN ---
Progress Note, Physician History of Present Illness: stable no new issues - Current Medication List Current Medications: Active Medications Acetaminophen (Tylenol -) 650 mg PO Q4H PRN PRN Reason: PAIN LEVEL 6-10 Last Admin: 06/17/19 02:47 Dose: 650 mg Aspirin (Asa -) [address] [facility] Last Admin: 06/17/19 10:19 Dose: 81 mg Atenolol (Tenormin -) [address] [facility] Last Admin: 06/17/19 10:19 Dose: 50 mg Atorvastatin Calcium (Lipitor -) [address] [facility] Last Admin: 06/16/19 21:08 Dose: 10 mg Calcium Carbonate (Os-Neeraj 500mg -) [address] [facility] Last Admin: 06/17/19 10:19 Dose: 500 mg Cholecalciferol (Vitamin D3 -) 1,[address] [facility] Last Admin: 06/17/19 10:19 Dose: 1,000 unit Heparin Sodium (Porcine) (Heparin -) 5,[address] [facility] Last Admin: 06/17/19 06:20 Dose: 5,000 unit Sodium Chloride (Normal Saline -) 1,000 mls @ 100 mls/hr IV ASDIR [facility] Last Admin: 06/17/19 01:46 Dose: 100 mls/hr Ertapenem 1 gm/ Sodium (Chloride) 50 mls @ 100 mls/hr IVPB DAILY [facility] Insulin Aspart (Novolog Vial Sliding Scale -) [address] [facility]; Protocol Last Admin: 06/17/19 06:20 Dose: 4 units Pantoprazole Sodium (Protonix Iv) [address] [facility] Last Admin: 06/17/19 10:20 Dose: 40 mg Potassium Citrate/Citric Acid (Cytra-K -) [address] [facility] Last Admin: 06/17/19 10:20 Dose: 20 meq Prochlorperazine Edisylate (Compazine Injection -) 10 mg IVPB Q6H PRN PRN Reason: NAUSEA AND/OR VOMITING Last Admin: 06/15/19 14:17 Dose: 10 mg Sitagliptin Phosphate (Januvia -) [address] [facility] Last Admin: 06/17/19 06:20 Dose: 50 mg Valsartan (Diovan -) [address] [facility] Last Admin: 06/17/19 10:19 Dose: 320 mg - Objective Vital Signs: Vital Signs Temperature 101.0 F H 06/17/19 02:00 Pulse Rate 100 H 06/17/19 02:00 Respiratory Rate 20 06/17/19 09:00 Blood Pressure 124/98 06/17/19 02:00 O2 Sat by Pulse Oximetry (%) 98 06/17/19 09:00 Constitutional: Yes: No Distress, Calm Cardiovascular: Yes: S1, S2 Respiratory: Yes: Regular, CTA Bilaterally Gastrointestinal: Yes: Normal Bowel Sounds, Soft Musculoskeletal: Yes: WNL Extremities: Yes: WNL Neurological: Yes: Alert, Oriented Psychiatric: Yes: Alert, Oriented Labs: CBC, BMP 06/17/19 06:30 06/17/19 06:30 INR, PTT INR 1.30 (0.83-1.09) H 06/15/19 07:38 Assessment/Plan hydronephrosis ureteric stone leukocytosis gm negative bacteremia sepsis plan esbl now abx changed to ertapenam await for repeat cx rest as per the team
--- NOTE | 2019-06-17 13:17 | PN ---
Physical Exam: SUBJECTIVE: Patient seen and examined in the morning. No acute events overnight. Patient has no complaints of chest pain, shortness of breath, cough, fever, chills, nausea, vomiting, diarrhea. OBJECTIVE: Vital Signs Period Temp Pulse Resp BP Sys/Ho Pulse Ox Last 24 Hr 98.2 F-101.0 F 96-105 18-20 124-140/68-98 98-98 GENERAL: The patient is awake, alert, and fully oriented, in no acute distress. Patient noted to be diaphoretic HEAD: Normal with no signs of trauma. EYES: PERRL, extraocular movements intact, sclera anicteric, conjunctiva clear. No ptosis. ENT: Ears normal, nares patent, oropharynx clear without exudates, moist mucous membranes. 2L NC in place. LUNGS: Breath sounds equal, clear to auscultation bilaterally, no wheezes, no crackles, no accessory muscle use. HEART: Regular rate and rhythm, S1, S2 without murmur, rub or gallop. ABDOMEN: Soft, nontender, nondistended, normoactive bowel sounds, no guarding EXTREMITIES: 2+ pulses, warm, well-perfused, no edema. NEUROLOGICAL: Cranial nerves II through XII grossly intact. Normal speech Laboratory Results - last 24 hr 06/16/19 06/16/19 06/17/19 16:30 17:10 00:24 WBC RBC Hgb Hct MCV MCH MCHC RDW Plt Count MPV Absolute Neuts (auto) Neutrophils % Lymphocytes % Monocytes % Eosinophils % Basophils % Nucleated RBC % Sodium Potassium Chloride Carbon Dioxide Anion Gap BUN Creatinine Est GFR (CKD-EPI)AfAm Est GFR (CKD-EPI)NonAf POC Glucometer 191 231 Random Glucose Calcium Phosphorus Magnesium Ferritin Stool Occult Blood Negative 06/17/19 06/17/19 06/17/19 06:16 06:30 06:30 WBC 12.9 H RBC 3.37 L Hgb 7.9 L Hct 24.6 L MCV 73.0 L MCH 23.3 L MCHC 31.9 L RDW 17.4 H Plt Count 262 MPV 7.5 Absolute Neuts (auto) 11.3 H Neutrophils % 87.2 H Lymphocytes % 7.6 L Monocytes % 3.9 Eosinophils % 0.9 D Basophils % 0.4 Nucleated RBC % 0 Sodium 141 Potassium 3.7 Chloride 110 H Carbon Dioxide 23 Anion Gap 8 BUN 25.5 H Creatinine 1.2 Est GFR (CKD-EPI)AfAm 51.56 Est GFR (CKD-EPI)NonAf 44.48 POC Glucometer 208 Random Glucose 204 H Calcium 7.9 L Phosphorus 2.9 Magnesium 2.1 Ferritin Stool Occult Blood 06/17/19 06/17/19 06:30 11:28 WBC RBC Hgb Hct MCV MCH MCHC RDW Plt Count MPV Absolute Neuts (auto) Neutrophils % Lymphocytes % Monocytes % Eosinophils % Basophils % Nucleated RBC % Sodium Potassium Chloride Carbon Dioxide Anion Gap BUN Creatinine Est GFR (CKD-EPI)AfAm Est GFR (CKD-EPI)NonAf POC Glucometer 234 Random Glucose Calcium Phosphorus Magnesium Ferritin 61.9 Stool Occult Blood Active Medications Generic Name Dose Route Start Last Admin Trade Name Freq PRN Reason Stop Dose Admin Acetaminophen 650 mg 06/15/19 11:11 06/17/19 02:47 Tylenol - PO 650 mg Q4H PRN Administration PAIN LEVEL 6-10 Aspirin 81 mg 06/16/19 10:00 06/17/19 10:19 Asa - PO 81 mg DAILY [facility] Administration Atenolol 50 mg 06/16/19 10:00 06/17/19 10:19 Tenormin - PO 50 mg DAILY [facility] Administration Atorvastatin Calcium 10 mg 06/16/19 22:00 06/16/19 21:08 Lipitor - PO 10 mg HS [facility] Administration Calcium Carbonate 500 mg 06/16/19 10:00 06/17/19 10:19 Os-Neeraj 500mg - PO 500 mg DAILY [facility] Administration Cholecalciferol 1,000 unit 06/16/19 10:00 06/17/19 10:19 Vitamin D3 - PO 1,000 unit DAILY [facility] Administration Heparin Sodium (Porcine) 5,000 unit 06/15/19 14:00 06/17/19 06:20 Heparin - SQ 5,000 unit TID [facility] Administration Ertapenem 1 gm/ Sodium 50 mls @ 100 mls/hr 06/17/19 10:00 Chloride IVPB DAILY [facility] Sodium Chloride 1,000 mls @ 50 mls/hr 06/17/19 12:09 Normal Saline - IV ASDIR [facility] Insulin Aspart 1 vial 06/16/19 16:30 06/17/19 11:58 Novolog Vial Sliding Scale - SQ 4 units TIDAC [facility] Administration Protocol Pantoprazole Sodium 40 mg 06/16/19 10:00 06/17/19 10:20 Protonix Iv IVPUSH 40 mg DAILY [facility] Administration Potassium Citrate/Citric Acid 20 meq 06/16/19 12:56 06/17/19 10:20 Cytra-K - PO 20 meq DAILY [facility] Administration Prochlorperazine Edisylate 10 mg 06/15/19 13:03 06/15/19 14:17 Compazine Injection - IVPB 10 mg Q6H PRN Administration NAUSEA AND/OR VOMITING Sitagliptin Phosphate 50 mg 06/16/19 07:00 06/17/19 06:20 Januvia - PO 50 mg BIDAC [facility] Administration Valsartan 320 mg 06/16/19 10:00 06/17/19 10:19 Diovan - PO 320 mg DAILY [facility] Administration ASSESSMENT/PLAN: 73 F with PMH of anemia, DM, HTN, HLD who presented with nausea vomiting and found to be septic secondary to pylenephritis caused by uretral stone in the left ureter. 1) Sepsis secondary to pyelonephritis -s/p cystoscopy and stent placement. -Urine culture shows lactose fermenting gram negative bacteria growing -Blood culture growing ESBL producing e.coli -WBC of 12.9 today -Ertapenem 1 gram started. -ID consulted, appreciate recs -NS decreased to 50 ml/hr -Compazine 10 mg IVPB Q6H PRN 2)L. urteral stone -stone was not visible on x-ray -stent in place -continue potassium citrate 20 meq 3)DELBERT -Creatinine 1.2, improving 3) DM II -Insulin sliding scale -Sitagliptin 50 mg BIDAC [facility] 4)HTN -Atenolol 50 mg Daily -Diovan 320 mg Daily 5) HLD -Atorvastatin 10 mg PO HS 6) Anemia -Iron studies show F: NS @ 50 ml/hr E: Monitor CMP N: Diabetic salt restricted diet DVT: Heparin 5000 SQ TID Dispo: Admitted to medicine. Visit type - Emergency Visit Emergency Visit: Yes ED Registration Date: 06/15/19 Care time: The patient presented to the Emergency Department on the above date and was hospitalized for further evaluation of their emergent condition. - New Patient This patient is new to me today: No - Critical Care Critical Care patient: No ATTENDING PHYSICIAN STATEMENT I saw and evaluated the patient. I reviewed the resident's note and discussed the case with the resident. I agree with the resident's findings and plan as documented. SUBJECTIVE: OBJECTIVE: ASSESSMENT AND PLAN:
[2019-06-17] MEDS: ERTAPENEM SODIUM 1 GM in SODIUM CHLORIDE 50 ML IVPB SCH (13:49)
[2019-06-17] MEDS ORDERED: MORPHINE SULFATE 2 MG/ML VIAL IVPUSH ONE (18:05)
--- NOTE | 2019-06-17 18:44 | PN ---
Progress Note (short form) - Note Progress Note: Patient resting comfortably though she does have some mild left flank pain WBC has come down significantly since stent placed and creatinine is now 1.2 Urine culture noted Please get serum uric acid and repeat urine to check pH Antibiotics as per medical service Push fluids For now, other than trying to get urine pH to around 6.7 nothing else for me to do. If we get her urine pH to that level will plan f/u CT in a few weeks to see if stone has dissolved
[2019-06-17] MEDS: ATORVASTATIN CA 10 MG TABLET (FP) PO SCH (21:52)
[2019-06-18] MEDS: SODIUM CHLORIDE 1,000 ML IV SCH (06:24)
[2019-06-18] MEDS: sitaGLIPtin PHOSPHATE 50 MG TABLET PO SCH ×2 (06:25→16:31)
[2019-06-18] MEDS: HEPARIN NA (PORCINE) 5,000 UNITS/ML 1ML VIAL SQ SCH ×3 (06:25→21:17)
[2019-06-18] MEDS: INSULIN SLIDING SCALE (NOVOLOG) 1 VIAL SQ SCH ×3 (06:29→16:39)
[2019-06-18 07:58] LABS: BASO % 0.5 % (0-2.0); EOS % 0.8 % (0-4.5); HEMATOCRIT 21.5 % (32.4-45.2); MCH 23.4 pg (25.7-33.7); MCHC 32.2 g/dl (32.0-36.0); MEAN CELL VOLUME 72.7 fl (80-96); MEAN PLT VOLUME 7.8 fl (7.5-11.1); MONO % 8.8 % (3.8-10.2); NEUT % 74.9 % (42.8-82.8); PLATELET COUNT 236 K/MM3 (134-434); RBC 2.96 M/mm3 (3.60-5.2); RDW 17.6 % (11.6-15.6); WHITE BLOOD COUNT 6.4 K/mm3 (4.0-10.0)
[2019-06-18 08:18] LABS: HEMOGLOBIN 6.9 GM/dL (10.7-15.3)
[2019-06-18 08:30] LABS: ALBUMIN 1.9 g/dl (3.4-5.0); BILIRUBIN,TOTAL 0.2 mg/dL (0.2-1); BLOOD UREA NITROGEN 21.9 mg/dL (7-18); CALCIUM 7.6 mg/dL (8.5-10.1); CREATININE 0.8 mg/dL (0.55-1.3); POTASSIUM 3.7 mmol/L (3.5-5.1)
[2019-06-18] MEDS ORDERED: KETOROLAC TROMETHAMINE 15 MG/ML VIAL IVPUSH PRN (08:48)
[2019-06-18] MEDS ORDERED: ACETAMINOPHEN 325 MG TABLET (FP) PO PRN (08:49)
[2019-06-18] MEDS ORDERED: INSULIN (NOVOLOG) ASPART 100 UNITS/ML 10ML VIAL ONE (10:15)
[2019-06-18] MEDS: CALCIUM (OYSTER SHELL) 500 MG TABLET (FP) PO SCH (10:25)
[2019-06-18] MEDS: ASPIRIN 81 MG CHEWABLE TABLETS PO SCH (10:25)
[2019-06-18] MEDS: ATENOLOL 50 MG TABLET (FP) PO SCH (10:25)
[2019-06-18] MEDS: VALSARTAN 160 MG TABLET (UD) PO SCH (10:25)
[2019-06-18] MEDS: ERTAPENEM SODIUM 1 GM in SODIUM CHLORIDE 50 ML IVPB SCH (10:25)
[2019-06-18] MEDS: PANTOPRAZOLE SODIUM 40 MG VIAL IVPUSH SCH (10:25)
[2019-06-18] MEDS: CHOLECALCIFEROL (VIT D3) 1,000 UNIT (25 MCG) TABLET PO SCH (10:25)
[2019-06-18] MEDS ORDERED: ACETAMINOPHEN 500 MG TABLET (FP) PO PRN ×2 (10:27→15:20)
[2019-06-18] MEDS: POTASSIUM CITRATE/CITRIC ACID 2 MEQ/ML ML PO SCH (10:28)
[2019-06-18 11:54] LABS: ANISOCYTOSIS 1+; MACROCYTOSIS 0; PLATELET ESTIMATE NORMAL
--- NOTE | 2019-06-18 12:06 | PN ---
Progress Note, Physician History of Present Illness: continues to have high hear rate repeat blood cx negative - Current Medication List Current Medications: Active Medications Acetaminophen (Tylenol -) 1,000 mg PO Q4H PRN PRN Reason: PAIN LEVEL 7 - 10 Aspirin (Asa -) 81 mg PO DAILY [facility] Last Admin: 06/18/19 10:25 Dose: 81 mg Atenolol (Tenormin -) 50 mg PO DAILY [facility] Last Admin: 06/18/19 10:25 Dose: 50 mg Atorvastatin Calcium (Lipitor -) 10 mg PO HS [facility] Last Admin: 06/17/19 21:52 Dose: 10 mg Calcium Carbonate (Os-Neeraj 500mg -) 500 mg PO DAILY [facility] Last Admin: 06/18/19 10:25 Dose: 500 mg Cholecalciferol (Vitamin D3 -) 1,000 unit PO DAILY [facility] Last Admin: 06/18/19 10:25 Dose: 1,000 unit Heparin Sodium (Porcine) (Heparin -) 5,000 unit SQ TID [facility] Last Admin: 06/18/19 06:25 Dose: 5,000 unit Ertapenem 1 gm/ Sodium (Chloride) 50 mls @ 100 mls/hr IVPB DAILY [facility] Last Admin: 06/18/19 10:25 Dose: 100 mls/hr Insulin Aspart (Novolog Vial Sliding Scale -) 1 vial SQ TIDAC [facility]; Protocol Last Admin: 06/18/19 11:22 Dose: 6 units Pantoprazole Sodium (Protonix Iv) 40 mg IVPUSH DAILY [facility] Last Admin: 06/18/19 10:25 Dose: 40 mg Potassium Citrate/Citric Acid (Cytra-K -) 20 meq PO DAILY [facility] Last Admin: 06/18/19 10:28 Dose: 20 meq Prochlorperazine Edisylate (Compazine Injection -) 10 mg IVPB Q6H PRN PRN Reason: NAUSEA AND/OR VOMITING Last Admin: 06/15/19 14:17 Dose: 10 mg Sitagliptin Phosphate (Januvia -) 50 mg PO BIDAC [facility] Last Admin: 06/18/19 06:25 Dose: 50 mg Valsartan (Diovan -) 320 mg PO DAILY [facility] Last Admin: 06/18/19 10:25 Dose: 320 mg - Objective Vital Signs: Vital Signs Temperature 99.6 F 06/18/19 10:30 Pulse Rate 181 H 06/18/19 10:40 Respiratory Rate 06/18/19 10:40 Blood Pressure 139/98 06/18/19 10:40 O2 Sat by Pulse Oximetry (%) 100 06/18/19 10:00 Constitutional: Yes: No Distress, Calm Cardiovascular: Yes: Tachycardia, S1, S2 Respiratory: Yes: Regular, CTA Bilaterally, On Nasal O2 Gastrointestinal: Yes: Normal Bowel Sounds, Soft Musculoskeletal: Yes: WNL Extremities: Yes: WNL Neurological: Yes: Alert, Oriented Psychiatric: Yes: Alert, Oriented Labs: CBC, BMP 06/18/19 06:20 06/18/19 06:20 INR, PTT INR 1.30 (0.83-1.09) H 06/15/19 07:38 Assessment/Plan hydronephrosis ureteric stone leukocytosis gm negative bacteremia sepsis plan continue abx will need 2 weeks rest as per the team
[2019-06-18 13:38] LABS: BASO % 0.5 % (0-2.0); EOS % 1.2 % (0-4.5); HEMATOCRIT 25.4 % (32.4-45.2); MCH 22.9 pg (25.7-33.7); MCHC 31.4 g/dl (32.0-36.0); MEAN CELL VOLUME 73.1 fl (80-96); MEAN PLT VOLUME 7.4 fl (7.5-11.1); MONO % 8.7 % (3.8-10.2); NEUT % 74.6 % (42.8-82.8); PLATELET COUNT 269 K/MM3 (134-434); RBC 3.47 M/mm3 (3.60-5.2); RDW 17.3 % (11.6-15.6); WHITE BLOOD COUNT 8.5 K/mm3 (4.0-10.0)
--- NOTE | 2019-06-18 13:43 | EKG ---
Test Reason : Blood Pressure : / mmHG Vent. Rate : 177 BPM Atrial Rate : 174 BPM P-R Int : 000 ms QRS Dur : 088 ms QT Int : 274 ms P-R-T Axes : 000 005 010 degrees QTc Int : 470 ms SUPRAVENTRICULAR TACHYCARDIA OTHERWISE NORMAL ECG WHEN COMPARED WITH ECG OF 16-JUN-2019 00:59, VENT. RATE HAS INCREASED BY 78 BPM NONSPECIFIC T WAVE ABNORMALITY HAS REPLACED INVERTED T WAVES IN INFERIOR LEADS Confirmed by MD Nikita, Raymond ([id number]) on 06/18/2019 1:43:05 PM Referred By: Guru DIMAS Confirmed By:Raymond Shelton MD
[2019-06-18] MEDS ORDERED: PROCHLORPERAZINE INJECTION 10 MG/2 ML VIAL IVPB PRN (15:20)
[2019-06-18] MEDS ORDERED: ATENOLOL 25 MG TABLET (FP) PO ONE (16:21)
--- NOTE | 2019-06-18 17:02 | PN ---
Physical Exam: SUBJECTIVE: Patient seen and examined. No acute events overnight. No complaints of chest pain, shortness of breath, cough, fever, chills, abdominal pain, nausea , vomiting, diarrhea. OBJECTIVE: Vital Signs Period Temp Pulse Resp BP Sys/Ho Pulse Ox Last 24 Hr 97.9 F-99.6 F 80-181 18-20 135-146/73-98 98-100 GENERAL: The patient is awake, alert, and fully oriented, in no acute distress. Patient noted to be diaphoretic HEAD: Normal with no signs of trauma. EYES: PERRL, extraocular movements intact, sclera anicteric, conjunctiva clear. No ptosis. ENT: Ears normal, nares patent, oropharynx clear without exudates, moist mucous membranes. 2L NC in place. LUNGS: Breath sounds equal, clear to auscultation bilaterally, no wheezes, no crackles, no accessory muscle use. HEART: Regular rate and rhythm, S1, S2 without murmur, rub or gallop. ABDOMEN: Soft, nontender, nondistended, normoactive bowel sounds, no guarding EXTREMITIES: 2+ pulses, warm, well-perfused, no edema. NEUROLOGICAL: Cranial nerves II through XII grossly intact. Normal speech Laboratory Results - last 24 hr 06/17/19 06/18/19 06/18/19 17:25 06:20 06:20 WBC 6.4 RBC 2.96 L Hgb 6.9 L* Hct 21.5 L MCV 72.7 L MCH 23.4 L MCHC 32.2 RDW 17.6 H Plt Count 236 MPV 7.8 Absolute Neuts (auto) 4.8 Neutrophils % 74.9 Neutrophils % (Manual) 79.8 Band Neutrophils % 0.0 Lymphocytes % 15.0 D Lymphocytes % (Manual) 14.1 D Monocytes % 8.8 D Monocytes % (Manual) 5 D Eosinophils % 0.8 Eosinophils % (Manual) 0.0 Basophils % 0.5 Basophils % (Manual) 1.0 D Myelocytes % (Man) 0 Promyelocytes % (Man) 0 Blast Cells % (Manual) 0 Nucleated RBC % 0 Metamyelocytes 0 D Hypochromia 1+ Platelet Estimate Normal Polychromasia 0 Poikilocytosis 0 Anisocytosis 1+ Microcytosis 1+ Macrocytosis 0 Sodium 142 Potassium 3.7 Chloride 112 H Carbon Dioxide 23 Anion Gap 7 L BUN 21.9 H Creatinine 0.8 Est GFR (CKD-EPI)AfAm 84.18 Est GFR (CKD-EPI)NonAf 72.63 POC Glucometer 182 Random Glucose 180 H Uric Acid 4.0 Calcium 7.6 L Total Bilirubin 0.2 AST 14 L ALT 22 Alkaline Phosphatase 71 Total Protein 5.0 L Albumin 1.9 L 06/18/19 06/18/19 06/18/19 06:28 11:21 13:15 WBC 8.5 RBC 3.47 L Hgb 8.0 L Hct 25.4 L D MCV 73.1 L MCH 22.9 L MCHC 31.4 L RDW 17.3 H Plt Count 269 MPV 7.4 L Absolute Neuts (auto) 6.3 Neutrophils % 74.6 Neutrophils % (Manual) Band Neutrophils % Lymphocytes % 15.0 Lymphocytes % (Manual) Monocytes % 8.7 Monocytes % (Manual) Eosinophils % 1.2 Eosinophils % (Manual) Basophils % 0.5 Basophils % (Manual) Myelocytes % (Man) Promyelocytes % (Man) Blast Cells % (Manual) Nucleated RBC % 0 Metamyelocytes Hypochromia Platelet Estimate Polychromasia Poikilocytosis Anisocytosis Microcytosis Macrocytosis Sodium Potassium Chloride Carbon Dioxide Anion Gap BUN Creatinine Est GFR (CKD-EPI)AfAm Est GFR (CKD-EPI)NonAf POC Glucometer 163 254 Random Glucose Uric Acid Calcium Total Bilirubin AST ALT Alkaline Phosphatase Total Protein Albumin 06/18/19 16:35 WBC RBC Hgb Hct MCV MCH MCHC RDW Plt Count MPV Absolute Neuts (auto) Neutrophils % Neutrophils % (Manual) Band Neutrophils % Lymphocytes % Lymphocytes % (Manual) Monocytes % Monocytes % (Manual) Eosinophils % Eosinophils % (Manual) Basophils % Basophils % (Manual) Myelocytes % (Man) Promyelocytes % (Man) Blast Cells % (Manual) Nucleated RBC % Metamyelocytes Hypochromia Platelet Estimate Polychromasia Poikilocytosis Anisocytosis Microcytosis Macrocytosis Sodium Potassium Chloride Carbon Dioxide Anion Gap BUN Creatinine Est GFR (CKD-EPI)AfAm Est GFR (CKD-EPI)NonAf POC Glucometer 163 Random Glucose Uric Acid Calcium Total Bilirubin AST ALT Alkaline Phosphatase Total Protein Albumin Active Medications Generic Name Dose Route Start Last Admin Trade Name Freq PRN Reason Stop Dose Admin Acetaminophen 1,000 mg 06/18/19 15:20 Tylenol - PO Q4H PRN PAIN LEVEL 7 - 10 Aspirin 81 mg 06/19/19 10:00 Asa - PO DAILY [facility] Atenolol 75 mg 06/19/19 10:00 Tenormin - PO DAILY [facility] Atorvastatin Calcium 10 mg 06/18/19 22:00 Lipitor - PO HS [facility] Calcium Carbonate 500 mg 06/19/19 10:00 Os-Neeraj 500mg - PO DAILY [facility] Cholecalciferol 1,000 unit 06/19/19 10:00 Vitamin D3 - PO DAILY [facility] Heparin Sodium (Porcine) 5,000 unit 06/18/19 22:00 Heparin - SQ TID [facility] Ertapenem 1 gm/ Sodium 50 mls @ 100 mls/hr 06/19/19 10:00 Chloride IVPB DAILY [facility] Insulin Aspart 1 vial 06/18/19 16:30 06/18/19 16:39 Novolog Vial Sliding Scale - SQ 2 units TIDAC [facility] Administration Protocol Pantoprazole Sodium 40 mg 06/19/19 10:00 Protonix Iv IVPUSH DAILY [facility] Potassium Citrate/Citric Acid 20 meq 06/19/19 10:00 Cytra-K - PO DAILY [facility] Prochlorperazine Edisylate 10 mg 06/18/19 15:20 Compazine Injection - IVPB Q6H PRN NAUSEA AND/OR VOMITING Sitagliptin Phosphate 50 mg 06/18/19 16:30 06/18/19 16:31 Januvia - PO 50 mg BIDAC [facility] Administration Valsartan 320 mg 06/19/19 10:00 Diovan - PO DAILY [facility] ASSESSMENT/PLAN: 73 F with PMH of anemia, DM, HTN, HLD who presented with nausea vomiting and found to be septic secondary to pylenephritis caused by uretral stone in the left ureter. 1) Sepsis secondary to pyelonephritis -s/p cystoscopy and stent placement. -Urine culture shows lactose fermenting gram negative bacteria growing -Blood culture growing ESBL producing e.coli -WBC of 12.9 today -Ertapenem 1 gram started. -ID consulted, appreciate recs -NS decreased to 50 ml/hr -Compazine 10 mg IVPB Q6H PRN 2)SVT -Cardiology consulted, appreciate recs -Atenolol 75 mg PO Qdaily -Monitoring on Telemetery. -F/U echo 3)L. urteral stone -stone was not visible on x-ray -stent in place -continue potassium citrate 20 meq 4)DELBERT -Creatinine 0.8, improving 5) DM II -Insulin sliding scale -Sitagliptin 50 mg BIDAC [facility] 6)HTN -Diovan 320 mg Daily 7) HLD -Atorvastatin 10 mg PO HS 8) Anemia -Patient was 6.9 in the morning but then 8.0 on repeat Hgb. -Rectal exam was negative F: NS @ 50 ml/hr E: Monitor Potassium, mag, phosphate N: Diabetic salt restricted diet DVT: Heparin 5000 SQ TID Dispo: Admitted to Telemetry. Visit type - Emergency Visit Emergency Visit: Yes ED Registration Date: 06/15/19 Care time: The patient presented to the Emergency Department on the above date and was hospitalized for further evaluation of their emergent condition. - New Patient This patient is new to me today: No - Critical Care Critical Care patient: No ATTENDING PHYSICIAN STATEMENT I saw and evaluated the patient. I reviewed the resident's note and discussed the case with the resident. I agree with the resident's findings and plan as documented. SUBJECTIVE: OBJECTIVE: ASSESSMENT AND PLAN:
--- NOTE | 2019-06-18 17:12 | PN ---
Teaching Attending Note Name of Resident: Mary Camacho ATTENDING PHYSICIAN STATEMENT I saw and evaluated the patient. I reviewed the resident's note and discussed the case with the resident. I agree with the resident's findings and plan as documented. SUBJECTIVE: No fever or chills. has L flank pain. she deos not have palpitations but RN noted that patient was tachy to 180s at times. OBJECTIVE: NAD. Awake, alert, cooperative HEENT: MMM, no facial droop Cv; RRR, 2/6 SM at LUSB Lungs: CATB. Abd: soft, TTP in LUQ, ND, nl BS. - Ext: no edema or erythema over upper or LE. ASSESSMENT AND PLAN: 73 y/o lady with h/o DM , HTN, HLP, anemia, who presented with 2 week hx of N/ V. she was found to have sepsis 1- Sepsis 2/2 pyelonephritis ( ESBL) in the setting of an obstructing L ureteral stone. Suspicion for uric acid stone - s/p cystoscopy and retrograde ureterogram and stent placement. - cont Ertapenem for 2 weeks from 1st neg blood cx - last blood cx on 4th neg to date - DC IVF 2- Obstructive L ureteral stone with hydronephrosis: - suspicion for uric acid stone as it is not visible on xray. - cont Potassium citrate. - she will follow in uro clinic in few days after dc to decide on stent removal and repeat imaging 3- SVTS: EKG showed SVts. Now HR in 80s-90s. - order echo - increase tenormine to 75 mg daily - check Phos and Mg - transfer to tele - card consult 4- DELBERT: resolved 5- h/o HTN: cont Tenormine. 6- Microcytic anemia Anemia: with possible dilution component. - HB 6.9, repeat Hb > 8 - iron studies shows component of iron def - she was advised to f/u with GI as out pt for coloand EGD ( never had one ) 7-H/o DM: SSI for now. 8- DVT px : heparin sq Will need a PICC line at dc to complete her Abx, pending resolution of SVTs and card eval
[2019-06-18] MEDS ORDERED: PT OWN MED DRAWER 7, Y5N ONE (17:19)
--- NOTE | 2019-06-18 17:44 | CON.CARD ---
Consult Consult Specialty:: cardiology Reason for Consultation:: PSVT post-op - History of Present Illness Chief Complaint: Pt A&Ox3; felt short of breath last night, but no chest pain, palpitations, or dyspnea now. + left flank pain History of Present Illness: 73 y/o female (janneth Edwards) with PMH anemia, DM, HTN, HLD, presenting today for two weeks of vomiting once per day and generalized weakness. Reports that she has been vomiting for the past two weeks around once a day NBNB and went to see her PCP who told her it was viral gastroenteritis. Also reports that she has anemia and has felt "weak". Reports subjective fever, but did not take temp. decreased PO intake and fluids. Denies headache/fall/chest pain/abdominal pain/changes in bowel/urinary symptoms. Denies dizziness or shortness of breath. Pt does housework, walks short distances in the home, but levy no formal exercise. Denies chest pain; no dyspnea prior to this admission. Pt had cystocopy and ureteral stent placed 06/15/2019; Last night, she felt SOB ; today, was noted to have periods of PSVT. Pt denies prior personal or family hx of CAD or arrhythmias. - History Source History Provided By: Patient, Family Member, Medical Record Limitations to Obtaining History: No Limitations - Past Medical History Cardio/Vascular: Yes: HTN Pulmonary: No: Asthma Reproductive: Yes: Postmenopausal ...: No Heme/Onc: Yes: Anemia Psych: No: Addictions - Alcohol/Substance Use Hx Alcohol Use: No - Smoking History Smoking history: Never smoked Have you smoked in the past 12 months: No Home Medications - Allergies Allergies/Adverse Reactions: Allergies Allergy/AdvReac Type Severity Reaction Status Date / Time azithromycin [From Zithromax] Allergy Mild Verified 06/15/19 08:46 hydrochlorothiazide Allergy Mild Verified 06/15/19 06:40 [From Zestoretic] hydrocodone Allergy Mild Verified 06/15/19 06:40 lisinopril [From Zestoretic] Allergy Mild Verified 06/15/19 06:40 meclizine Allergy Mild Verified 06/15/19 06:40 - Home Medications Home Medications: Ambulatory Orders Aspirin 81 mg PO DAILY 06/15/19 Atenolol [Tenormin -] 50 mg PO DAILY 06/15/19 Atorvastatin Ca [Lipitor] 10 mg PO HS 06/15/19 Calcium Carbonate [Oyster Shell Calcium] 500 mg PO DAILY 06/15/19 Cholecalciferol (Vitamin D3) [Vitamin D3] 1,000 unit PO DAILY 06/15/19 Glipizide/Metformin HCl [Glipizide-Metformin 5-500 mg] 1 each PO BID 06/15/19 Omeprazole 40 mg PO DAILY 06/15/19 Sitagliptin Phosphate [Januvia] 50 mg PO BID 06/15/19 Telmisartan/Hydrochlorothiazid [Telmisartan-Hctz 80-12.5 mg Tb] 1 each PO DAILY 06/15/19 Family Medical History Family History: Denies Review of Systems - Review of Systems Constitutional: reports: No Symptoms Eyes: reports: No Symptoms HENT: reports: No Symptoms Neck: reports: No Symptoms Cardiovascular: reports: Shortness of Breath Respiratory: reports: SOB Genitourinary: reports: Flank Pain Breasts: reports: No Symptoms Reported Musculoskeletal: reports: Muscle Weakness Integumentary: reports: No Symptoms Neurological: reports: No Symptoms Endocrine: reports: No Symptoms Hematology/Lymphatic: reports: No Symptoms Psychiatric: reports: No Symptoms - Risk Factors Known Risk Factors: Yes: Age, Diabetes Mellitus, Gender, Hypercholesterolemia, Hypertension Vital Signs: Vital Signs Temperature 97.9 F 06/18/19 13:19 Pulse Rate 100 H 06/18/19 15:09 Respiratory Rate 18 06/18/19 15:09 Blood Pressure 140/94 06/18/19 15:09 O2 Sat by Pulse Oximetry (%) 100 06/18/19 10:00 Constitutional: Yes: Well Nourished, Anxious Eyes: Yes: WNL HENT: Yes: WNL Neck: Yes: WNL Respiratory: Yes: WNL Gastrointestinal: Yes: Soft Renal/: No: Anuria JVD: No Carotid Bruit: No PMI: Non-Displaced Heart Sounds: Yes: S1, S2 Murmur: Yes: Systolic Murmur, Grade 1 Musculoskeletal: Yes: Muscle Weakness Edema: No Peripheral Pulses WNL: Yes Integumentary: Yes: WNL Neurological: Yes: WNL ...Motor Strength: WNL Psychiatric: Yes: WNL - Other Data Labs, Other Data: CBC, BMP 06/18/19 13:15 06/18/19 06:20 INR, PTT INR 1.30 (0.83-1.09) H 06/15/19 07:38 Abnormal Lab Results 06/18/19 06/18/19 06/19/19 13:15 18:15 00:20 RBC 3.47 L Hgb 8.0 L Hct 25.4 L D MCV 73.1 L MCH 22.9 L MCHC 31.4 L RDW 17.3 H MPV 7.4 L Chloride Anion Gap BUN Random Glucose Calcium Magnesium 1.6 L HDL Cholesterol 15 L 06/19/19 06/19/19 05:43 05:43 RBC 3.26 L Hgb 7.6 L Hct 23.7 L MCV 72.5 L MCH 23.4 L MCHC RDW 17.7 H MPV Chloride 115 H Anion Gap 4 L BUN 22.0 H Random Glucose 194 H Calcium 7.9 L Magnesium HDL Cholesterol Echo: Pending Imaging - Results Chest X-ray: Image Reviewed EKG: Image Reviewed Problem List - Problems (1) PSVT (paroxysmal supraventricular tachycardia) Assessment/Plan: s/p ureteral stent Telemetry: NSR; bursts of PSVT, sometimes up to several seconds. EKG: PSVT; otherwise WNL. K 3.7. TNI < 0.02. CXR: no acute infiltrate; CT chest: minimal bilatera pleural effusion (06/15/19) . Plan: On atenolol. Give metoprolol 5 mg IVP prn for PSVT >130 bpm. IV fluids: 500 ml bolus. Keep K+ 4.0-4.5 Keep Mg 2.0-2.4 Keep PO4 2.5-4.9. Serial TNI. F/u TSH. Pain management. ECHO for LVEF, wall motion, valve status. Code(s): I47.1 - SUPRAVENTRICULAR TACHYCARDIA (2) S/P ureteral stent placement Assessment/Plan: f/u with Code(s): Z96.0 - PRESENCE OF UROGENITAL IMPLANTS (3) Hypoalbuminemia Code(s): E88.09 - OTH DISORDERS OF PLASMA-PROTEIN METABOLISM, NEC (4) HTN (hypertension) Assessment/Plan: on Diovan and atenolol. Code(s): I10 - ESSENTIAL (PRIMARY) HYPERTENSION (5) Anemia Assessment/Plan: f/u workup post-op Code(s): D64.9 - ANEMIA, UNSPECIFIED
[2019-06-18] MEDS ORDERED: SODIUM CHLORIDE 0.9% 500 ML INFUS.BAG IV ONE (17:48)
[2019-06-18] MEDS ORDERED: POTASSIUM CHLORIDE ORAL LIQUID 20 MEQ/15 ML PO ONE (18:17)
[2019-06-18 19:08] LABS: MAGNESIUM 1.6 mg/dL (1.8-2.4); PHOSPHOROUS 2.7 mg/dL (2.5-4.9); POTASSIUM 3.7 mmol/L (3.5-5.1)
[2019-06-18] MEDS ORDERED: MAGNESIUM SULF 50% (8.12 MEQ/2 ML-1 GM VIAL) IVPB ONE (19:30)
[2019-06-18] MEDS: ATORVASTATIN CA 10 MG TABLET (FP) PO SCH (21:17)
[2019-06-18] MEDS ORDERED: METOPROLOL TARTRATE 5 MG/5 ML VIAL IVPUSH PRN (23:36)
[2019-06-19 01:13] LABS: CHOLESTEROL 61 mg/dL (50-200); HDL CHOLESTEROL 15 mg/dL (40-60); LDL CHOLESTEROL (ONLY SJRH) 36 mg/dL (5-100); MAGNESIUM 2.1 mg/dL (1.8-2.4); TRIGLYCERIDES 146 mg/dL (0-150)
[2019-06-19] MEDS: sitaGLIPtin PHOSPHATE 50 MG TABLET PO SCH ×2 (06:22→16:54)
[2019-06-19] MEDS: HEPARIN NA (PORCINE) 5,000 UNITS/ML 1ML VIAL SQ SCH ×3 (06:24→22:07)
[2019-06-19] MEDS: INSULIN SLIDING SCALE (NOVOLOG) 1 VIAL SQ SCH ×3 (06:24→16:54)
[2019-06-19 07:10] LABS: BASO % 0.6 % (0-2.0); EOS % 1.2 % (0-4.5); HEMATOCRIT 23.7 % (32.4-45.2); HEMOGLOBIN 7.6 GM/dL (10.7-15.3); LYMPH % 13.1 % (8-40); MCH 23.4 pg (25.7-33.7); MCHC 32.3 g/dl (32.0-36.0); MEAN CELL VOLUME 72.5 fl (80-96); MEAN PLT VOLUME 7.5 fl (7.5-11.1); MONO % 8.8 % (3.8-10.2); NEUT % 76.3 % (42.8-82.8); PLATELET COUNT 256 K/MM3 (134-434); RBC 3.26 M/mm3 (3.60-5.2); RDW 17.7 % (11.6-15.6); WHITE BLOOD COUNT 9.2 K/mm3 (4.0-10.0)
[2019-06-19 07:37] LABS: CALCIUM 7.9 mg/dL (8.5-10.1); CREATININE 0.8 mg/dL (0.55-1.3); MAGNESIUM 2.1 mg/dL (1.8-2.4); POTASSIUM 4.6 mmol/L (3.5-5.1)
--- NOTE | 2019-06-19 09:12 | PN ---
Teaching Attending Note Name of Resident: Socrates Wooten ATTENDING PHYSICIAN STATEMENT I saw and evaluated the patient. I reviewed the resident's note and discussed the case with the resident. I agree with the resident's findings and plan as documented. SUBJECTIVE: Patient is comfortable with no acute distress, no fever or chills. denies any pain at this time. No urgency or frequency. Vital Signs Temperature 99.2 F 06/19/19 06:00 Pulse Rate 87 06/19/19 06:00 Respiratory Rate 18 06/19/19 06:00 Blood Pressure 143/77 06/19/19 06:00 O2 Sat by Pulse Oximetry (%) 98 06/18/19 21:00 GENERAL: The patient is awake, alert, and fully oriented, in no acute distress. HEAD: Normal with no signs of trauma. EYES: PERRL, extraocular movements intact, sclera anicteric, conjunctiva clear. ENT: Ears normal, oropharynx clear without exudates, moist mucous membranes. NECK: Trachea midline, full range of motion, supple. LUNGS: Breath sounds equal, clear to auscultation bilaterally, no wheezes, no crackles, no accessory muscle use. HEART: Regular rate and rhythm, S1, S2 positive, 2/6 SM at LUSB, no rub or gallop. ABDOMEN: Soft, NT, ND, normoactive bowel sounds, no guarding, no rebound, no hepatosplenomegaly, no masses. EXTREMITIES: 2+ pulses, warm, well-perfused, no edema. no CVA tenderness. NEUROLOGICAL: Cranial nerves II through XII grossly intact. Normal speech, gait not observed. PSYCH: Normal mood, normal affect. SKIN: Warm, dry, normal turgor, no rashes or lesions noted CBCD WBC 9.2 K/mm3 (4.0-10.0) 06/19/19 05:43 RBC 3.26 M/mm3 (3.60-5.2) L 06/19/19 05:43 Hgb 7.6 GM/dL (10.7-15.3) L 06/19/19 05:43 Hct 23.7 % (32.4-45.2) L 06/19/19 05:43 MCV 72.5 fl (80-96) L 06/19/19 05:43 MCHC 32.3 g/dl (32.0-36.0) 06/19/19 05:43 RDW 17.7 % (11.6-15.6) H 06/19/19 05:43 Plt Count 256 K/MM3 (134-434) 06/19/19 05:43 MPV 7.5 fl (7.5-11.1) 06/19/19 05:43 CMP Sodium 145 mmol/L (136-145) 06/19/19 05:43 Potassium 4.6 mmol/L (3.5-5.1) 06/19/19 05:43 Chloride 115 mmol/L (98-107) H 06/19/19 05:43 Carbon Dioxide 26 mmol/L (21-32) 06/19/19 05:43 Anion Gap 4 MMOL/L (8-16) L 06/19/19 05:43 BUN 22.0 mg/dL (7-18) H 06/19/19 05:43 Creatinine 0.8 mg/dL (0.55-1.3) 06/19/19 05:43 Random Glucose 194 mg/dL (74-106) H 06/19/19 05:43 Calcium 7.9 mg/dL (8.5-10.1) L 06/19/19 05:43 Total Bilirubin 0.2 mg/dL (0.2-1) 06/18/19 06:20 AST 14 U/L (15-37) L 06/18/19 06:20 ALT 22 U/L (13-61) 06/18/19 06:20 Alkaline Phosphatase 71 U/L (45-117) 06/18/19 06:20 Total Protein 5.0 g/dl (6.4-8.2) L 06/18/19 06:20 Albumin 1.9 g/dl (3.4-5.0) L 06/18/19 06:20 CARDIAC ENZYMES Creatine Kinase 40 U/L (26-192) 06/19/19 00:20 Troponin I < 0.02 ng/ml (0.00-0.05) 06/19/19 00:20 Current Medications Generic Name Dose Route Start Last Admin Trade Name Freq PRN Reason Stop Dose Admin Acetaminophen 1,000 mg 06/18/19 15:20 06/18/19 21:17 Tylenol - PO 1,000 mg Q4H PRN Administration PAIN LEVEL 7 - 10 Aspirin 81 mg 06/19/19 10:00 Asa - PO DAILY [facility] Atenolol 75 mg 06/19/19 10:00 Tenormin - PO DAILY [facility] Atorvastatin Calcium 10 mg 06/18/19 22:00 06/18/19 21:17 Lipitor - PO 10 mg HS [facility] Administration Calcium Carbonate 500 mg 06/19/19 10:00 Os-Neeraj 500mg - PO DAILY [facility] Cholecalciferol 1,000 unit 06/19/19 10:00 Vitamin D3 - PO DAILY [facility] Heparin Sodium (Porcine) 5,000 unit 06/18/19 22:00 06/19/19 06:24 Heparin - SQ 5,000 unit TID [facility] Administration Ertapenem 1 gm/ Sodium 50 mls @ 100 mls/hr 06/19/19 10:00 Chloride IVPB DAILY [facility] Insulin Aspart 1 vial 06/18/19 16:30 06/19/19 06:24 Novolog Vial Sliding Scale - SQ 2 units TIDAC [facility] Administration Protocol Metoprolol Tartrate 5 mg 06/18/19 23:36 Lopressor Injection - IVPUSH Q4H PRN HEART RATE > 130 Pantoprazole Sodium 40 mg 06/19/19 10:00 Protonix Iv IVPUSH DAILY [facility] Potassium Chloride 40 meq 06/19/19 10:00 K-Dur - PO DAILY [facility] wii discontinue K is 4.6 Potassium Citrate/Citric Acid 20 meq 06/19/19 10:00 Cytra-K - PO DAILY [facility] Prochlorperazine Edisylate 10 mg 06/18/19 15:20 Compazine Injection - IVPB Q6H PRN NAUSEA AND/OR VOMITING discontinue Sitagliptin Phosphate 50 mg 06/18/19 16:30 06/19/19 06:22 Januvia - PO 50 mg BIDAC [facility] Administration Valsartan 320 mg 06/19/19 10:00 Diovan - PO DAILY [facility] Home Medications Medication Instructions Recorded Aspirin 81 mg PO DAILY 06/15/19 Atenolol [Tenormin -] 50 mg PO DAILY 06/15/19 Atorvastatin Ca [Lipitor] 10 mg PO HS 06/15/19 Calcium Carbonate [Oyster Shell 500 mg PO DAILY 06/15/19 Calcium] Cholecalciferol (Vitamin D3) 1,000 unit PO DAILY 06/15/19 [Vitamin D3] Glipizide/Metformin HCl 1 each PO BID 06/15/19 [Glipizide-Metformin 5-500 mg] Omeprazole 40 mg PO DAILY 06/15/19 Sitagliptin Phosphate [Januvia] 50 mg PO BID 06/15/19 Telmisartan/Hydrochlorothiazid 1 each PO DAILY 06/15/19 [Telmisartan-Hctz 80-12.5 mg Tb] Microbiology 06/17/19 06:25 Blood - Peripheral Venous Blood Culture - Preliminary NO GROWTH OBTAINED AFTER 48 HOURS, INCUBATION TO CONTINUE FOR 3 DAYS. 06/17/19 06:30 Blood - Peripheral Venous Blood Culture - Preliminary NO GROWTH OBTAINED AFTER 48 HOURS, INCUBATION TO CONTINUE FOR 3 DAYS. 06/15/19 15:30 Stool Salmonella/Shigella Culture - Final NO GROWTH OF SALMONELLA OR SHIGELLA SPECIES OBTAINED 06/15/19 15:30 Stool Campylobacter Culture - Final NO GROWTH OF CAMPYLOBACTER SPECIES OBTAINED 06/15/19 15:30 Stool Yersinia Culture - Final 06/15/19 15:30 Stool Vibrio Culture - Final 06/15/19 15:30 Stool Escherichia coli 0157 Culture - Final NO GROWTH OF E COLI 0157 OBTAINED 06/15/19 14:56 Blood - Peripheral Venous Blood Culture - Final Escherichia Coli Esbl Recovery Manager 06/16/19 00:01 Urine - Urine - Catheterized Urine Culture - Final Escherichia Coli Esbl Recovery Manager 06/15/19 14:56 Blood - Peripheral Venous Blood Culture - Final Escherichia Coli Esbl Recovery Manager 06/15/19 07:57 Blood - Peripheral Venous Blood Culture - Final Escherichia Coli Esbl Recovery Manager 06/15/19 07:57 Blood - Peripheral Venous Blood Culture - Final Escherichia Coli Esbl Recovery Manager 06/15/19 15:30 Stool Clostridioides difficile Antigen - Final 06/15/19 15:30 Stool Clostridioides difficile Toxin Assay - Final 06/15/19 09:04 Urine - Urine Clean Catch Urine Culture - Final Contaminated: Please Repeat ASSESSMENT AND PLAN: Patient is a 73 y/o female with PMHx of DM , HTN, HLP, anemia, who presented with 2 week hx of N/V. she was found to have sepsis # Sepsis due to acute pyelonephritis ( ESBL) in the setting of an obstructing L ureteral stone. s/p cystoscopy and retrograde ureterogram and stent placement. 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 # SVTS: EKG showed SVts. Now HR in 80s-90s. echo: mild to moderate MR, mild TR, left ventricul normal size. increased the dose of tenormin to 75 mg daily cardio consult appreciated. Give metoprolol 5 mg IVP prn for PSVT >130 bpm, as per cardio, Keep K+ 4.0-4.5, Keep Mg 2.0-2.4, Keep PO4 2.5-4.9. f/u TSH. # DELBERT: resolved # h/o HTN: cont Tenormin # Microcytic anemia Anemia: transfuse if Hb < 7 , iron studies shows component of iron def - she was advised to f/u with GI as out pt for coloand EGD ( never had one ) #H/o DM: SSI for now. # DVT px : heparin sq Will need a PICC line at dc to complete her Abx, pending resolution of SVTs and card michael
--- NOTE | 2019-06-19 09:46 | PN ---
Progress Note, Physician History of Present Illness: 73 y/o female (janneth Edwards) with PMH anemia, DM, HTN, HLD, presenting today for two weeks of vomiting once per day and generalized weakness. Reports that she has been vomiting for the past two weeks around once a day NBNB and went to see her PCP who told her it was viral gastroenteritis. Also reports that she has anemia and has felt "weak". Reports subjective fever, but did not take temp. decreased PO intake and fluids. Denies headache/fall/chest pain/abdominal pain/changes in bowel/urinary symptoms. Denies dizziness or shortness of breath. Pt does housework, walks short distances in the home, but levy no formal exercise. Denies chest pain; no dyspnea prior to this admission. Pt had cystocopy and ureteral stent placed 06/15/2019; Last night, she felt SOB ; today, was noted to have periods of PSVT. Pt denies prior personal or family hx of CAD or arrhythmias. - Current Medication List Current Medications: Active Medications Acetaminophen (Tylenol -) 1,000 mg PO Q4H PRN PRN Reason: PAIN LEVEL 7 - 10 Last Admin: 06/18/19 21:17 Dose: 1,000 mg Aspirin (Asa -) 81 mg PO DAILY [facility] Atenolol (Tenormin -) 75 mg PO DAILY [facility] Atorvastatin Calcium (Lipitor -) 10 mg PO HS [facility] Last Admin: 06/18/19 21:17 Dose: 10 mg Calcium Carbonate (Os-Neeraj 500mg -) 500 mg PO DAILY [facility] Cholecalciferol (Vitamin D3 -) 1,000 unit PO DAILY [facility] Heparin Sodium (Porcine) (Heparin -) 5,000 unit SQ TID [facility] Last Admin: 06/19/19 06:24 Dose: 5,000 unit Ertapenem 1 gm/ Sodium (Chloride) 50 mls @ 100 mls/hr IVPB DAILY [facility] Insulin Aspart (Novolog Vial Sliding Scale -) 1 vial SQ TIDAC [facility]; Protocol Last Admin: 06/19/19 06:24 Dose: 2 units Metoprolol Tartrate (Lopressor Injection -) 5 mg IVPUSH Q4H PRN PRN Reason: HEART RATE > 130 Pantoprazole Sodium (Protonix Iv) 40 mg IVPUSH DAILY [facility] Potassium Chloride (K-Dur -) 40 meq PO DAILY [facility] Potassium Citrate/Citric Acid (Cytra-K -) 20 meq PO DAILY [facility] Prochlorperazine Edisylate (Compazine Injection -) 10 mg IVPB Q6H PRN PRN Reason: NAUSEA AND/OR VOMITING Sitagliptin Phosphate (Januvia -) 50 mg PO BIDAC [facility] Last Admin: 06/19/19 06:22 Dose: 50 mg Valsartan (Diovan -) 320 mg PO DAILY [facility] - Objective Vital Signs: Vital Signs Temperature 99.2 F 06/19/19 06:00 Pulse Rate 87 06/19/19 06:00 Respiratory Rate 18 06/19/19 06:00 Blood Pressure 143/77 06/19/19 06:00 O2 Sat by Pulse Oximetry (%) 98 06/18/19 21:00 Eyes: Yes: WNL, Conjunctiva Clear, EOM Intact HENT: Yes: WNL, Atraumatic, Normocephalic Neck: Yes: WNL, Supple, Trachea Midline Cardiovascular: Yes: WNL, Regular Rate and Rhythm Respiratory: Yes: WNL, Regular, CTA Bilaterally Gastrointestinal: Yes: WNL, Normal Bowel Sounds Genitourinary: Yes: WNL Musculoskeletal: Yes: WNL Extremities: Yes: WNL Edema: No Integumentary: Yes: WNL Neurological: Yes: WNL, Alert, Oriented ...Motor Strength: WNL Psychiatric: Yes: WNL Labs: CBC, BMP 06/19/19 05:43 06/19/19 05:43 INR, PTT INR 1.30 (0.83-1.09) H 06/15/19 07:38 Assessment/Plan - Problems (1) PSVT (paroxysmal supraventricular tachycardia) Assessment/Plan: s/p ureteral stent Telemetry: NSR; bursts of PSVT, sometimes up to several seconds. EKG: PSVT; otherwise WNL. K 3.7. TNI < 0.02. CXR: no acute infiltrate; CT chest: minimal bilatera pleural effusion (06/15/19) . Plan: On atenolol. Give metoprolol 5 mg IVP prn for PSVT >130 bpm. IV fluids: 500 ml bolus. Keep K+ 4.0-4.5 Keep Mg 2.0-2.4 Keep PO4 2.5-4.9. Serial TNI. F/u TSH. Pain management. ECHO for LVEF, wall motion, valve status. Code(s): I47.1 - SUPRAVENTRICULAR TACHYCARDIA (2) S/P ureteral stent placement Assessment/Plan: f/u with Code(s): Z96.0 - PRESENCE OF UROGENITAL IMPLANTS (3) Hypoalbuminemia Code(s): E88.09 - OTH DISORDERS OF PLASMA-PROTEIN METABOLISM, NEC (4) HTN (hypertension) Assessment/Plan: on Diovan and atenolol. Code(s): I10 - ESSENTIAL (PRIMARY) HYPERTENSION (5) Anemia Assessment/Plan: f/u workup post-op Code(s): D64.9 - ANEMIA, UNSPECIFIED
[2019-06-19] MEDS: ERTAPENEM SODIUM 1 GM in SODIUM CHLORIDE 50 ML IVPB SCH (09:53)
[2019-06-19] MEDS: PANTOPRAZOLE SODIUM 40 MG VIAL IVPUSH SCH (09:53)
[2019-06-19] MEDS: VALSARTAN 160 MG TABLET (UD) PO SCH (09:53)
[2019-06-19] MEDS: CHOLECALCIFEROL (VIT D3) 1,000 UNIT (25 MCG) TABLET PO SCH (09:54)
[2019-06-19] MEDS: POTASSIUM CITRATE/CITRIC ACID 2 MEQ/ML ML PO SCH (09:54)
[2019-06-19] MEDS: ASPIRIN 81 MG CHEWABLE TABLETS PO SCH (09:54)
[2019-06-19] MEDS ORDERED: ATENOLOL 25 MG TABLET (FP) PO SCH (10:00)
[2019-06-19] MEDS ORDERED: ATENOLOL 50 MG TABLET (FP) PO SCH (10:00)
[2019-06-19] MEDS ORDERED: POTASSIUM CHLORIDE TABS 20 MEQ TABLET.ER (FP) PO SCH (10:00)
[2019-06-19] MEDS ORDERED: CALCIUM (OYSTER SHELL) 500 MG TABLET (FP) PO SCH (10:00)
[2019-06-19] MEDS ORDERED: INSULIN (NOVOLOG) ASPART 100 UNITS/ML 10ML VIAL ONE (11:25)
--- NOTE | 2019-06-19 11:40 | EKG ---
Test Reason : Blood Pressure : / mmHG Vent. Rate : 090 BPM Atrial Rate : 090 BPM P-R Int : 132 ms QRS Dur : 088 ms QT Int : 354 ms P-R-T Axes : 019 006 012 degrees QTc Int : 433 ms NORMAL SINUS RHYTHM NORMAL ECG WHEN COMPARED WITH ECG OF 18-JUN-2019 11:30, VENT. RATE HAS DECREASED BY 87 BPM Confirmed by PRIYANKA MEDLEY MD ([id number]) on 06/19/2019 11:39:26 AM Referred By: Guru DIMAS Confirmed By:PRIYANKA MEDLEY MD
--- NOTE | 2019-06-19 12:27 | ECHO ---
Name: RAMESH COHEN Exam:Adult Echocardiogram Study Date: 06/19/2019 09:02 AM Age: 73 yrs Reason For Study: New Episodes of SVT Height: 57 in Weight: 122 lb BSA: 1.5 m2 MMode/2D Measurements & Calculations IVSd: 0.78 cm Ao root diam: 2.1 cm LVIDd: 3.6 cm LA dimension: 3.8 cm LVIDs: 2.7 cm ACS: 1.7 cm LVPWd: 1.4 cm EDV(Teich): 52.7 ml LVOT diam: 1.7 cm ESV(Teich): 26.4 ml RV S Wale: 13.6 cm/sec Doppler Measurements & Calculations MV E max wale: 106.1 cm/sec Ao V2 max: 188.9 cm/sec MV A max wale: 120.9 cm/sec Ao max P.3 mmHg MV E/A: 0.88 Ao V2 mean: 121.4 cm/sec MV dec time: 0.06 sec Ao mean P.0 mmHg Ao V2 VTI: 34.6 cm JOHN(I,D): 1.4 cm2 JOHN(V,D): 1.4 cm2 LV V1 max P.3 mmHg MR max wale: 651.5 cm/sec LV V1 mean P.4 mmHg MR max P.8 mmHg LV V1 max: 115.4 cm/sec LV V1 mean: 69.9 cm/sec LV V1 VTI: 21.4 cm SV(LVOT): 48.3 ml TR max wale: 286.1 cm/sec TR max P.8 mmHg RVSP(TR): 42.8 mmHg Med Peak E' Wale: 6.1 cm/sec RAP systole: 10.0 mmHg Med E/e': 17.3 Lat Peak E' Wale: 8.1 cm/sec Lat E/e': 13.1 Procedure A two-dimensional transthoracic echocardiogram with color flow and Doppler was performed. Left Ventricle The left ventricular size, thickness and function are normal. The left ventricular ejection fraction is normal. E/A reversal consistent with but not diagnostic of poor LV compliance. The left ventricular w all motion is normal. Right Ventricle The right ventricle is normal in size and function. Atria Normal left and right atrial size and function. Mitral Valve There is mild mitral valve thickening. There is no mitral valve stenosis. There is mild to moderate m itral regurgitation. Tricuspid Valve The tricuspid valve is normal in structure and function. There is no tricuspid stenosis. There is mil d tricuspid regurgitation. Right ventricular systolic pressure is elevated at 40-50mmHg. Aortic Valve The aortic valve is not well visualized. No hemodynamically significant valvular aortic stenosis. Mil d aortic regurgitation. Pulmonic Valve The pulmonic valve is not well visualized. Great Vessels The aortic root is normal size. Pericardium/Pleura There is no pericardial effusion. Interpretation Summary The left ventricular size, thickness and function are normal The left ventricular ejection fraction is normal. The left ventricular wall motion is normal. There is mild to moderate mitral regurgitation. Right ventricular systolic pressure is elevated at 40-50mmHg. There is mild tricuspid regurgitation. E/A reversal consistent with but not diagnostic of poor LV compliance MD Panda Mishra 06/19/2019 12:27 PM
--- NOTE | 2019-06-19 14:58 | PN ---
Physical Exam: SUBJECTIVE: Patient seen and examined OBJECTIVE: Vital Signs Period Temp Pulse Resp BP Sys/Ho Pulse Ox Last 24 Hr 97.8 F-99.8 F 77-100 18-20 108-149/72-94 98-98 GENERAL: The patient is awake, alert, and fully oriented, in no acute distress. HEAD: Normal with no signs of trauma. EYES: PERRL, extraocular movements intact, sclera anicteric, conjunctiva clear. No ptosis. ENT: Ears normal, nares patent, oropharynx clear without exudates, moist mucous membranes. 2L NC in place. LUNGS: Breath sounds equal, clear to auscultation bilaterally, no wheezes, no crackles, no accessory muscle use. HEART: Regular rate and rhythm, S1, S2 without murmur, rub or gallop. ABDOMEN: Soft, nontender, nondistended, normoactive bowel sounds, no guarding EXTREMITIES: 2+ pulses, warm, well-perfused, no edema. Possible Tophi Noted on patient's on hands. NEUROLOGICAL: Cranial nerves II through XII grossly intact. Normal speech Laboratory Results - last 24 hr CBC, BMP 06/19/19 05:43 06/19/19 05:43 Active Medications Generic Name Dose Route Start Last Admin Trade Name Freq PRN Reason Stop Dose Admin Acetaminophen 1,000 mg 06/18/19 15:20 06/18/19 21:17 Tylenol - PO 1,000 mg Q4H PRN Administration PAIN LEVEL 7 - 10 Aspirin 81 mg 06/19/19 10:00 06/19/19 09:54 Asa - PO 81 mg DAILY [facility] Administration Atenolol 75 mg 06/19/19 10:00 06/19/19 09:54 Tenormin - PO 75 mg DAILY [facility] Administration Atorvastatin Calcium 10 mg 06/18/19 22:00 06/18/19 21:17 Lipitor - PO 10 mg HS [facility] Administration Calcium Carbonate 500 mg 06/19/19 10:00 06/19/19 09:54 Os-Neeraj 500mg - PO 500 mg DAILY [facility] Administration Cholecalciferol 1,000 unit 06/19/19 10:00 06/19/19 09:54 Vitamin D3 - PO 1,000 unit DAILY [facility] Administration Heparin Sodium (Porcine) 5,000 unit 06/18/19 22:00 06/19/19 13:38 Heparin - SQ 5,000 unit TID [facility] Administration Ertapenem 1 gm/ Sodium 50 mls @ 100 mls/hr 06/19/19 10:00 06/19/19 09:53 Chloride IVPB 100 mls/hr DAILY [facility] Administration Insulin Aspart 1 vial 06/18/19 16:30 06/19/19 11:29 Novolog Vial Sliding Scale - SQ 4 units TIDAC [facility] Administration Protocol Metoprolol Tartrate 5 mg 06/18/19 23:36 Lopressor Injection - IVPUSH Q4H PRN HEART RATE > 130 Pantoprazole Sodium 40 mg 06/19/19 10:00 06/19/19 09:53 Protonix Iv IVPUSH 40 mg DAILY [facility] Administration Potassium Chloride 40 meq 06/19/19 10:00 06/19/19 09:54 K-Dur - PO 40 meq DAILY [facility] Administration Potassium Citrate/Citric Acid 20 meq 06/19/19 10:00 06/19/19 09:54 Cytra-K - PO 20 meq DAILY [facility] Administration Prochlorperazine Edisylate 10 mg 06/18/19 15:20 Compazine Injection - IVPB Q6H PRN NAUSEA AND/OR VOMITING Sitagliptin Phosphate 50 mg 06/18/19 16:30 06/19/19 06:22 Januvia - PO 50 mg BIDAC [facility] Administration Valsartan 320 mg 06/19/19 10:00 06/19/19 09:53 Diovan - PO 320 mg DAILY [facility] Administration ASSESSMENT/PLAN: 73 F with PMH of anemia, DM, HTN, HLD who presented with nausea vomiting and found to be septic secondary to pylenephritis caused by uretral stone in the left ureter. 1) Sepsis secondary to pyelonephritis -s/p cystoscopy and stent placement. -Urine culture shows lactose fermenting gram negative bacteria growing -Blood culture growing ESBL producing e.coli -WBC of 12.9 today -Ertapenem 1 gram started. Day 3. -ID consulted, appreciate recs -Compazine 10 mg IVPB Q6H PRN 2)SVT -Cardiology consulted, appreciate recs -Atenolol 75 mg PO Qdaily -5 mg metropolol IV if HR >130 -Monitoring on Telemetery. -F/U TSH and Thyroid hormone levels. -Echo completed: EF was normal, LV function normal, LV size normal. Mild to moderate Mitral regurgitation. Mild Tricuspid regurgitation. RV systolic pressure elevated. 3)L. urteral stone -stone was not visible on x-ray. Potentially due to Gout. Allopurinol as outpatient. -stent in place -continue potassium citrate 20 meq 4)DELBERT -Creatinine 0.8, improving 5) DM II -Insulin sliding scale -Sitagliptin 50 mg BIDAC [facility] 6)HTN -Diovan 320 mg Daily 7) HLD -Atorvastatin 10 mg PO HS 8) Anemia -Stool occult blood was negative -Rectal exam was negative F: No fluids. E: Monitor Potassium, mag, phosphate N: Diabetic salt restricted diet DVT: Heparin 5000 SQ TID Dispo: Admitted to Telemetry. Visit type - Emergency Visit Emergency Visit: Yes ED Registration Date: 06/15/19 Care time: The patient presented to the Emergency Department on the above date and was hospitalized for further evaluation of their emergent condition. - New Patient This patient is new to me today: No - Critical Care Critical Care patient: No ATTENDING PHYSICIAN STATEMENT I saw and evaluated the patient. I reviewed the resident's note and discussed the case with the resident. I agree with the resident's findings and plan as documented. SUBJECTIVE: OBJECTIVE: ASSESSMENT AND PLAN:
[2019-06-19] MEDS ORDERED: MAGNESIUM OXIDE 400 MG TABLET (FP) PO ONE (15:43)
[2019-06-19] MEDS ORDERED: ACETAMINOPHEN 325 MG TABLET (FP) PO PRN (16:05)
--- NOTE | 2019-06-19 17:46 | PN ---
Progress Note (short form) - Note Progress Note: Patient's WBC and creatinine are at baseline Still no serum uric acid Requested again Please get a KUB so we can determine if stone is visible next to stent; I don't expect it to be. Assuming that to be case continue the potassium citrate and I will see in office after she is discharged and will plan a CT to see if stone dissolved or if she needs ureteroscopy Optimally would get u/a daily while she is here to check pH which should be around 7 to get stone to dissolve. If it isn't would increase KCitrate dose slightly. Let me know if there are any questions No further in house consult necessary for now. Endy Islas cell [phone]
[2019-06-19] MEDS ORDERED: dilTIAZem HCL 50 MG/10 ML - 10 ML VIAL IVPUSH ONE (21:21)
[2019-06-19] MEDS: ATORVASTATIN CA 10 MG TABLET (FP) PO SCH (22:07)
[2019-06-19] MEDS ORDERED: dilTIAZem HCL 50 MG/10 ML - 10 ML VIAL IVPUSH PRN (22:42)
[2019-06-20] MEDS: dilTIAZem HCL 30 MG TABLET (FP) PO SCH ×4 (01:03→17:38)
[2019-06-20] MEDS: INSULIN SLIDING SCALE (NOVOLOG) 1 VIAL SQ SCH ×3 (06:45→17:49)
[2019-06-20] MEDS: sitaGLIPtin PHOSPHATE 50 MG TABLET PO SCH ×2 (06:45→17:38)
[2019-06-20] MEDS: HEPARIN NA (PORCINE) 5,000 UNITS/ML 1ML VIAL SQ SCH (06:45)
[2019-06-20 07:44] LABS: BASO % 0.6 % (0-2.0); EOS % 1.1 % (0-4.5); HEMATOCRIT 22.7 % (32.4-45.2); HEMOGLOBIN 7.3 GM/dL (10.7-15.3); LYMPH % 15.3 % (8-40); MCH 23.4 pg (25.7-33.7); MCHC 32.3 g/dl (32.0-36.0); MEAN CELL VOLUME 72.5 fl (80-96); MEAN PLT VOLUME 7.8 fl (7.5-11.1); PLATELET COUNT 260 K/MM3 (134-434); RBC 3.13 M/mm3 (3.60-5.2); RDW 17.1 % (11.6-15.6); WHITE BLOOD COUNT 10.4 K/mm3 (4.0-10.0)
--- NOTE | 2019-06-20 08:08 | PN ---
Progress Note, Physician Chief Complaint: Pt A&Ox3; mildly anxious; no palitations, chest pain, dizziness, dsypnea. History of Present Illness: 73 y/o female (janneth Edwards) with PMH anemia, DM, HTN, HLD, presenting today for two weeks of vomiting once per day and generalized weakness. Reports that she has been vomiting for the past two weeks around once a day NBNB and went to see her PCP who told her it was viral gastroenteritis. Also reports that she has anemia and has felt "weak". Reports subjective fever, but did not take temp. decreased PO intake and fluids. Denies headache/fall/chest pain/abdominal pain/changes in bowel/urinary symptoms. Denies dizziness or shortness of breath. Pt does housework, walks short distances in the home, but levy no formal exercise. Denies chest pain; no dyspnea prior to this admission. Pt had cystocopy and ureteral stent placed 06/15/2019; Last night, she felt SOB ; today, was noted to have periods of PSVT. Pt denies prior personal or family hx of CAD or arrhythmias. - Current Medication List Current Medications: Active Medications Acetaminophen (Tylenol -) 650 mg PO Q6H PRN PRN Reason: pain 1-5 Aspirin (Asa -) 81 mg PO DAILY [facility] Last Admin: 06/19/19 09:54 Dose: 81 mg Atorvastatin Calcium (Lipitor -) 10 mg PO HS [facility] Last Admin: 06/19/19 22:07 Dose: 10 mg Cholecalciferol (Vitamin D3 -) 1,000 unit PO DAILY [facility] Last Admin: 06/19/19 09:54 Dose: 1,000 unit Diltiazem HCl (Cardizem -) 30 mg PO Q6HPO [facility] Last Admin: 06/20/19 06:45 Dose: 30 mg Diltiazem HCl (Cardizem Injection -) 10 mg IVPUSH Q4H PRN PRN Reason: TACHYCARDIA Heparin Sodium (Porcine) (Heparin -) 5,000 unit SQ TID [facility] Last Admin: 06/20/19 06:45 Dose: 5,000 unit Ertapenem 1 gm/ Sodium (Chloride) 50 mls @ 100 mls/hr IVPB DAILY [facility] Last Admin: 06/19/19 09:53 Dose: 100 mls/hr Insulin Aspart (Novolog Vial Sliding Scale -) 1 vial SQ TIDAC [facility]; Protocol Last Admin: 06/20/19 06:45 Dose: 2 units Pantoprazole Sodium (Protonix Iv) 40 mg IVPUSH DAILY [facility] Last Admin: 06/19/19 09:53 Dose: 40 mg Potassium Citrate/Citric Acid (Cytra-K -) 20 meq PO DAILY [facility] Last Admin: 06/19/19 09:54 Dose: 20 meq Sitagliptin Phosphate (Januvia -) 50 mg PO BIDAC [facility] Last Admin: 06/20/19 06:45 Dose: 50 mg Valsartan (Diovan -) 320 mg PO DAILY [facility] Last Admin: 06/19/19 09:53 Dose: 320 mg - Objective Vital Signs: Vital Signs Temperature 98.8 F 06/20/19 06:00 Pulse Rate 84 06/20/19 06:00 Respiratory Rate 20 06/20/19 06:00 Blood Pressure 128/73 06/20/19 06:00 O2 Sat by Pulse Oximetry (%) 98 06/19/19 21:00 Constitutional: Yes: Anxious Eyes: Yes: WNL HENT: Yes: WNL Neck: Yes: WNL Cardiovascular: Yes: S1, S2 Respiratory: Yes: Regular Gastrointestinal: Yes: Soft ...Rectal Exam: Yes: Deferred Genitourinary: No: Anuria Breast(s): Yes: WNL Musculoskeletal: Yes: Muscle Weakness Extremities: Yes: WNL Edema: No Peripheral Pulses WNL: Yes Integumentary: Yes: WNL Neurological: Yes: WNL ...Motor Strength: WNL Psychiatric: Yes: WNL Labs: INR, PTT INR 1.30 (0.83-1.09) H 06/15/19 07:38 Abnormal Lab Results 06/20/19 06/20/19 06/20/19 05:25 05:25 05:25 WBC 10.4 H RBC 3.13 L Hgb 7.3 L Hct 22.7 L MCV 72.5 L MCH 23.4 L RDW 17.1 H Chloride 110 H Anion Gap 4 L Random Glucose 177 H Calcium 8.3 L Magnesium 1.7 L Free T4 1.51 H Problem List - Problems (1) PSVT (paroxysmal supraventricular tachycardia) Assessment/Plan: s/p ureteral stent Telemetry: NSR; bursts of PSVT, sometimes up to several seconds. EKG: PSVT; otherwise WNL. K 3.7. TNI < 0.02. CXR: no acute infiltrate; CT chest: minimal bilatera pleural effusion (06/15/19) . Plan: On atenolol. Give metoprolol 5 mg IVP prn for PSVT >130 bpm. IV fluids: 500 ml bolus. Keep K+ 4.0-4.5 Keep Mg 2.0-2.4 Keep PO4 2.5-4.9. Serial TNI. F/u TSH. Pain management. ECHO for LVEF, wall motion, valve status. Code(s): I47.1 - SUPRAVENTRICULAR TACHYCARDIA (2) S/P ureteral stent placement Assessment/Plan: f/u with Code(s): Z96.0 - PRESENCE OF UROGENITAL IMPLANTS (3) Hypoalbuminemia Code(s): E88.09 - OTH DISORDERS OF PLASMA-PROTEIN METABOLISM, NEC (4) HTN (hypertension) Assessment/Plan: on Diovan and atenolol. Code(s): I10 - ESSENTIAL (PRIMARY) HYPERTENSION (5) Anemia Assessment/Plan: f/u workup post-op Code(s): D64.9 - ANEMIA, UNSPECIFIED
[2019-06-20 08:15] LABS: BLOOD UREA NITROGEN 17.6 mg/dL (7-18); CALCIUM 8.3 mg/dL (8.5-10.1); CREATININE 0.8 mg/dL (0.55-1.3); POTASSIUM 4.6 mmol/L (3.5-5.1); URIC ACID 4.1 mg/dL (2.6-7.2)
[2019-06-20 08:17] LABS: MAGNESIUM 1.7 mg/dL (1.8-2.4); PHOSPHOROUS 3.3 mg/dL (2.5-4.9)
[2019-06-20] MEDS ORDERED: PT OWN MED DRAWER 7, Y5N ONE ×3 (09:45→16:32)
[2019-06-20] MEDS ORDERED: MAGNESIUM OXIDE 400 MG TABLET (FP) PO ONE (10:00)
[2019-06-20] MEDS: PANTOPRAZOLE SODIUM 40 MG VIAL IVPUSH SCH (10:06)
[2019-06-20] MEDS: CHOLECALCIFEROL (VIT D3) 1,000 UNIT (25 MCG) TABLET PO SCH (10:07)
[2019-06-20] MEDS: POTASSIUM CITRATE/CITRIC ACID 2 MEQ/ML ML PO SCH (10:07)
[2019-06-20] MEDS: VALSARTAN 160 MG TABLET (UD) PO SCH (10:07)
[2019-06-20] MEDS: ASPIRIN 81 MG CHEWABLE TABLETS PO SCH (10:07)
[2019-06-20 10:32] LABS: EPI CELLS 0.5 /HPF (0-5/HPF); HYALINE CASTS 2 /lpf (0-8); PH,URINE 5.5 (5.0-8.0); URINE APPEARANCE CLEAR; URINE BACTERIA 40.6 /hpf (NEGATIVE); URINE BILIRUBIN NEGATIVE (NEGATIVE); URINE COLOR YELLOW; URINE GLUCOSE (UA) NEGATIVE (NEGATIVE); URINE KETONE NEGATIVE (NEGATIVE); URINE LEUK ESTERASE 1+ (NEGATIVE); URINE NITRITE NEGATIVE (NEGATIVE); URINE PROTEIN NEGATIVE (NEGATIVE); URINE UROBILINOGEN 0.2 mg/dL (0.2-1.0); URINE WBC 25 /hpf (0-5)
[2019-06-20] MEDS ORDERED: HEPARIN NA (PORCINE) 5,000 UNITS/ML 1ML VIAL IVPUSH PRN ×2 (10:44)
--- NOTE | 2019-06-20 10:58 | PN ---
Teaching Attending Note Name of Resident: Socrates Wooten ATTENDING PHYSICIAN STATEMENT I saw and evaluated the patient. I reviewed the resident's note and discussed the case with the resident. I agree with the resident's findings and plan as documented. SUBJECTIVE: Patient is comfortable with no acute process, sister and her friend at bedside. Denies having any chest pain, but c/o having increased HR during night time. OBJECTIVE: Vital Signs Temperature 98.8 F 06/20/19 06:00 Pulse Rate 84 06/20/19 06:00 Respiratory Rate 20 06/20/19 06:00 Blood Pressure 128/73 06/20/19 06:00 O2 Sat by Pulse Oximetry (%) 98 06/19/19 21:00 GENERAL: The patient is awake, alert, and fully oriented, in no acute distress. HEAD: Normal with no signs of trauma. EYES: PERRL, extraocular movements intact, sclera anicteric, conjunctiva clear. ENT: Ears normal, oropharynx clear without exudates, moist mucous membranes. NECK: Trachea midline, full range of motion, supple. LUNGS: Breath sounds equal, clear to auscultation bilaterally, no wheezes, no crackles, no accessory muscle use. HEART: Regular rate and rhythm, S1, S2 positive, LEONIDES 3/6 no rub or gallop. ABDOMEN: Soft, nontender, nondistended, normoactive bowel sounds, no guarding, no rebound, no hepatosplenomegaly, no masses. EXTREMITIES: 2+ pulses, warm, well-perfused, no edema. NEUROLOGICAL: Cranial nerves II through XII grossly intact. Normal speech, gait not observed. PSYCH: Normal mood, normal affect. SKIN: Warm, dry, normal turgor, no rashes or lesions noted CBCD WBC 10.4 K/mm3 (4.0-10.0) H 06/20/19 05:25 RBC 3.13 M/mm3 (3.60-5.2) L 06/20/19 05:25 Hgb 7.3 GM/dL (10.7-15.3) L 06/20/19 05:25 Hct 22.7 % (32.4-45.2) L 06/20/19 05:25 MCV 72.5 fl (80-96) L 06/20/19 05:25 MCHC 32.3 g/dl (32.0-36.0) 06/20/19 05:25 RDW 17.1 % (11.6-15.6) H 06/20/19 05:25 Plt Count 260 K/MM3 (134-434) 06/20/19 05:25 MPV 7.8 fl (7.5-11.1) 06/20/19 05:25 CMP Sodium 141 mmol/L (136-145) 06/20/19 05:25 Potassium 4.6 mmol/L (3.5-5.1) 06/20/19 05:25 Chloride 110 mmol/L (98-107) H 06/20/19 05:25 Carbon Dioxide 27 mmol/L (21-32) 06/20/19 05:25 Anion Gap 4 MMOL/L (8-16) L 06/20/19 05:25 BUN 17.6 mg/dL (7-18) 06/20/19 05:25 Creatinine 0.8 mg/dL (0.55-1.3) 06/20/19 05:25 Random Glucose 177 mg/dL (74-106) H 06/20/19 05:25 Calcium 8.3 mg/dL (8.5-10.1) L 06/20/19 05:25 Total Bilirubin 0.2 mg/dL (0.2-1) 06/18/19 06:20 AST 14 U/L (15-37) L 06/18/19 06:20 ALT 22 U/L (13-61) 06/18/19 06:20 Alkaline Phosphatase 71 U/L (45-117) 06/18/19 06:20 Total Protein 5.0 g/dl (6.4-8.2) L 06/18/19 06:20 Albumin 1.9 g/dl (3.4-5.0) L 06/18/19 06:20 CARDIAC ENZYMES Creatine Kinase 40 U/L (26-192) 06/19/19 00:20 Troponin I < 0.02 ng/ml (0.00-0.05) 06/19/19 00:20 Current Medications Generic Name Dose Route Start Last Admin Trade Name Freq PRN Reason Stop Dose Admin Acetaminophen 650 mg 06/19/19 16:05 Tylenol - PO Q6H PRN pain 1-5 Aspirin 81 mg 06/19/19 10:00 06/20/19 10:07 Asa - PO 81 mg DAILY [facility] Administration Atorvastatin Calcium 10 mg 06/18/19 22:00 06/19/19 22:07 Lipitor - PO 10 mg HS [facility] Administration Cholecalciferol 1,000 unit 06/19/19 10:00 06/20/19 10:07 Vitamin D3 - PO 1,000 unit DAILY [facility] Administration Diltiazem HCl 30 mg 06/19/19 00:00 06/20/19 06:45 Cardizem - PO 30 mg Q6HPO [facility] Administration Diltiazem HCl 10 mg 06/19/19 22:42 Cardizem Injection - IVPUSH Q4H PRN TACHYCARDIA Heparin Sodium (Porcine) 5,000 unit 06/18/19 22:00 06/20/19 06:45 Heparin - SQ 5,000 unit TID [facility] Administration Heparin Sodium (Porcine) 1,000 unit 06/20/19 10:44 Heparin - IVPUSH PRN PRN Heparin Heparin Sodium (Porcine) 5,000 unit 06/20/19 10:44 Heparin - IVPUSH PRN PRN Heparin Ertapenem 1 gm/ Sodium 50 mls @ 100 mls/hr 06/19/19 10:00 06/19/19 09:53 Chloride IVPB 100 mls/hr DAILY [facility] Administration HEPARIN SOD,PORK IN 0.45% NACL 25,000 unit in 500 mls @ 16 mls/hr 06/20/19 11: 30 Heparin-1/2ns 25,000 Units/500 IVPB TITR [facility] Protocol 800 UNITS/HR Insulin Aspart 1 vial 06/18/19 16:30 06/20/19 06:45 Novolog Vial Sliding Scale - SQ 2 units TIDAC [facility] Administration Protocol Pantoprazole Sodium 40 mg 06/19/19 10:00 06/20/19 10:06 Protonix Iv IVPUSH 40 mg DAILY [facility] Administration Potassium Citrate/Citric Acid 20 meq 06/19/19 10:00 06/20/19 10:07 Cytra-K - PO 20 meq DAILY [facility] Administration Sitagliptin Phosphate 50 mg 06/18/19 16:30 06/20/19 06:45 Januvia - PO 50 mg BIDAC [facility] Administration Valsartan 320 mg 06/19/19 10:00 06/20/19 10:07 Diovan - PO 320 mg DAILY [facility] Administration Home Medications Medication Instructions Recorded Aspirin 81 mg PO DAILY 06/15/19 Atenolol [Tenormin -] 50 mg PO DAILY 06/15/19 Atorvastatin Ca [Lipitor] 10 mg PO HS 06/15/19 Calcium Carbonate [Oyster Shell 500 mg PO DAILY 06/15/19 Calcium] Cholecalciferol (Vitamin D3) 1,000 unit PO DAILY 06/15/19 [Vitamin D3] Glipizide/Metformin HCl 1 each PO BID 06/15/19 [Glipizide-Metformin 5-500 mg] Omeprazole 40 mg PO DAILY 06/15/19 Sitagliptin Phosphate [Januvia] 50 mg PO BID 06/15/19 Telmisartan/Hydrochlorothiazid 1 each PO DAILY 06/15/19 [Telmisartan-Hctz 80-12.5 mg Tb] Microbiology 06/17/19 06:30 Blood - Peripheral Venous Blood Culture - Preliminary NO GROWTH OBTAINED AFTER 72 HOURS, INCUBATION TO CONTINUE FOR 2 DAYS. 06/17/19 06:25 Blood - Peripheral Venous Blood Culture - Preliminary NO GROWTH OBTAINED AFTER 72 HOURS, INCUBATION TO CONTINUE FOR 2 DAYS. 06/15/19 15:30 Stool Salmonella/Shigella Culture - Final NO GROWTH OF SALMONELLA OR SHIGELLA SPECIES OBTAINED 06/15/19 15:30 Stool Campylobacter Culture - Final NO GROWTH OF CAMPYLOBACTER SPECIES OBTAINED 06/15/19 15:30 Stool Yersinia Culture - Final 06/15/19 15:30 Stool Vibrio Culture - Final 06/15/19 15:30 Stool Escherichia coli 0157 Culture - Final NO GROWTH OF E COLI 0157 OBTAINED 06/15/19 14:56 Blood - Peripheral Venous Blood Culture - Final Escherichia Coli Esbl [employer] 06/16/19 00:01 Urine - Urine - Catheterized Urine Culture - Final Escherichia Coli Esbl [employer] 06/15/19 14:56 Blood - Peripheral Venous Blood Culture - Final Escherichia Coli Esbl [employer] 06/15/19 07:57 Blood - Peripheral Venous Blood Culture - Final Escherichia Coli Esbl [employer] Teacher 06/15/19 07:57 Blood - Peripheral Venous Blood Culture - Final Escherichia Coli Esbl [employer] Teacher 06/15/19 15:30 Stool Clostridioides difficile Antigen - Final 06/15/19 15:30 Stool Clostridioides difficile Toxin Assay - Final 06/15/19 09:04 Urine - Urine Clean Catch Urine Culture - Final Contaminated: Please Repeat ASSESSMENT AND PLAN: Patient is a 73 y/o female with PMHx of DM , HTN, HLP, anemia, who presented with 2 week hx of N/V. she was found to have sepsis # Sepsis due to Gram- bacteremia / acute pyelonephritis ( ESBL) in the setting of an obstructing L ureteral stone. s/p cystoscopy and retrograde ureterogram and stent placement. cont Ertapenem for 2 weeks from 1st neg blood cx , patient will be needing PICC line for total of 14 days. # Obstructive L ureteral stone with hydronephrosis: on Potassium citrate will increase to 50mg daily # Gouty deposits on her PIP Joints and Ca oxalate stone, will start her Allopurinal 300mg daily and continue Kcitrate. # SVTS: EKG showed SVts. Now HR in 80s-90s. echo: mild to moderate MR, mild TR, left ventricul normal size. changed to cardizem 30mg q6h, from atenelol. cardio consult appreciated. Give metoprolol 5 mg IVP prn for PSVT >130 bpm, as per cardio, Keep K+ 4.0-4.5, Keep Mg 2.0-2.4, Keep PO4 2.5-4.9. # DELBERT: resolved # h/o HTN: on cardizem q6h 30mg now. # Microcytic anemia Anemia: transfuse if Hb < 7 , iron studies shows component of iron def - she was advised to f/u with GI as out pt for colon. and EGD ( never had one ) #H/o DM: SSI for now. # DVT px : heparin sq Will need a PICC line at dc to complete her Abx, pending resolution of SVTs heparin IV will discuss with cardio and urologist
[2019-06-20 11:08] LABS: URINE CRYSTALS NO CRYSTALS SEEN /hpf; YEAST NO YEAST SEEN (NEGATIVE)
[2019-06-20] MEDS ORDERED: HEPARIN SOD,PORK IN 0.45% NACL 25,000 UNIT/500 ML INFUS.BAG IVPB SCH (11:30)
--- NOTE | 2019-06-20 11:47 | EKG ---
Test Reason : Blood Pressure : / mmHG Vent. Rate : 089 BPM Atrial Rate : 089 BPM P-R Int : 140 ms QRS Dur : 092 ms QT Int : 366 ms P-R-T Axes : 016 000 005 degrees QTc Int : 445 ms NORMAL SINUS RHYTHM MINIMAL VOLTAGE CRITERIA FOR LVH, MAY BE NORMAL VARIANT BORDERLINE ECG WHEN COMPARED WITH ECG OF 19-JUN-2019 21:03, SINUS RHYTHM HAS REPLACED ATRIAL FIBRILLATION VENT. RATE HAS DECREASED BY 87 BPM Confirmed by DHIRAJ CHAIDEZ MD ([id number]) on 06/20/2019 11:47:11 AM Referred By: Confirmed By:DHIRAJ CHAIDEZ MD
--- NOTE | 2019-06-20 11:49 | EKG ---
Test Reason : Blood Pressure : / mmHG Vent. Rate : 176 BPM Atrial Rate : 192 BPM P-R Int : 000 ms QRS Dur : 086 ms QT Int : 250 ms P-R-T Axes : 000 003 001 degrees QTc Int : 427 ms ATRIAL FIBRILLATION WITH RAPID VENTRICULAR RESPONSE ABNORMAL ECG WHEN COMPARED WITH ECG OF 19-JUN-2019 11:22, ATRIAL FIBRILLATION HAS REPLACED SINUS RHYTHM VENT. RATE HAS INCREASED BY 86 BPM Confirmed by DHIRAJ CHAIDEZ MD ([id number]) on 06/20/2019 11:49:21 AM Referred By: Confirmed By:DHIRAJ CHAIDEZ MD
[2019-06-20] MEDS ORDERED: INSULIN (NOVOLOG) ASPART 100 UNITS/ML 10ML VIAL ONE (12:02)
[2019-06-20] MEDS: ERTAPENEM SODIUM 1 GM in SODIUM CHLORIDE 50 ML IVPB SCH (12:11)
[2019-06-20 12:12] LABS: INR 1.18 (0.83-1.09); PROTHROMBIN TIME (PATIENT) 13.9 SEC (9.7-13.0)
[2019-06-20 12:15] LABS: ACTIVATED PTT 30.3 SECONDS (25.2-36.5)
--- NOTE | 2019-06-20 12:46 | PN ---
Progress Note, Physician History of Present Illness: stable no new issues - Current Medication List Current Medications: Active Medications Acetaminophen (Tylenol -) 650 mg PO Q6H PRN PRN Reason: pain 1-5 Aspirin (Asa -) 81 mg PO DAILY [facility] Last Admin: 06/20/19 10:07 Dose: 81 mg Atorvastatin Calcium (Lipitor -) 10 mg PO HS [facility] Last Admin: 06/19/19 22:07 Dose: 10 mg Cholecalciferol (Vitamin D3 -) 1,000 unit PO DAILY [facility] Last Admin: 06/20/19 10:07 Dose: 1,000 unit Diltiazem HCl (Cardizem -) 30 mg PO Q6HPO [facility] Last Admin: 06/20/19 12:10 Dose: 30 mg Diltiazem HCl (Cardizem Injection -) 10 mg IVPUSH Q4H PRN PRN Reason: TACHYCARDIA Heparin Sodium (Porcine) (Heparin -) 5,000 unit SQ TID [facility] Last Admin: 06/20/19 06:45 Dose: 5,000 unit Heparin Sodium (Porcine) (Heparin -) 1,000 unit IVPUSH PRN PRN PRN Reason: Heparin Heparin Sodium (Porcine) (Heparin -) 5,000 unit IVPUSH PRN PRN PRN Reason: Heparin Ertapenem 1 gm/ Sodium (Chloride) 50 mls @ 100 mls/hr IVPB DAILY [facility] Last Admin: 06/20/19 12:11 Dose: 100 mls/hr HEPARIN SOD,PORK IN 0.45% NACL (Heparin-1/2ns 25,000 Units/500) 25,000 unit in 500 mls @ 16 mls/hr IVPB TITR [facility]; Protocol Insulin Aspart (Novolog Vial Sliding Scale -) 1 vial SQ TIDAC [facility]; Protocol Last Admin: 06/20/19 12:11 Dose: 6 units Pantoprazole Sodium (Protonix Iv) 40 mg IVPUSH DAILY [facility] Last Admin: 06/20/19 10:06 Dose: 40 mg Potassium Citrate/Citric Acid (Cytra-K -) 20 meq PO DAILY [facility] Last Admin: 06/20/19 10:07 Dose: 20 meq Sitagliptin Phosphate (Januvia -) 50 mg PO BIDAC [facility] Last Admin: 06/20/19 06:45 Dose: 50 mg Valsartan (Diovan -) 320 mg PO DAILY [facility] Last Admin: 06/20/19 10:07 Dose: 320 mg - Objective Vital Signs: Vital Signs Temperature 98.8 F 06/20/19 06:00 Pulse Rate 84 06/20/19 06:00 Respiratory Rate 20 06/20/19 06:00 Blood Pressure 128/73 06/20/19 06:00 O2 Sat by Pulse Oximetry (%) 98 06/19/19 21:00 Constitutional: Yes: No Distress, Calm Cardiovascular: Yes: S1, S2 Respiratory: Yes: Regular, CTA Bilaterally Musculoskeletal: Yes: WNL Extremities: Yes: WNL Neurological: Yes: Alert, Oriented Psychiatric: Yes: Alert, Oriented Labs: CBC, BMP 06/20/19 05:25 06/20/19 05:25 INR, PTT INR 1.18 (0.83-1.09) H 06/20/19 11:42 Assessment/Plan hydronephrosis ureteric stone leukocytosis gm negative bacteremia sepsis plan continue abx will need 2 weeks rest as per the team
[2019-06-20] MEDS ORDERED: POTASSIUM CITRATE/CITRIC ACID 2 MEQ/ML ML PO ONE (13:25)
--- NOTE | 2019-06-20 14:39 | PN ---
Physical Exam: SUBJECTIVE: Patient seen and examined in the morning. Patient had episodes of SVT and Afib on the athletic monitor overnight. No complaints of chest pain, shortness of breath, abdominal pain, cough, fever, chills, nausea, vomiting, diarrhea. OBJECTIVE: Vital Signs Period Temp Pulse Resp BP Sys/Ho Pulse Ox Last 24 Hr 98.4 F-99.8 F 83-174 20-20 128-162/65-92 98-98 GENERAL: The patient is awake, alert, and fully oriented, in no acute distress. HEAD: Normal with no signs of trauma. EYES: PERRL, extraocular movements intact, sclera anicteric, conjunctiva clear. No ptosis. ENT: Ears normal, nares patent, oropharynx clear without exudates, moist mucous membranes. 2L NC in place. LUNGS: Breath sounds equal, clear to auscultation bilaterally, no wheezes, no crackles, no accessory muscle use. HEART: Regular rate and rhythm, S1, S2 without murmur, rub or gallop. ABDOMEN: Soft, nontender, nondistended, normoactive bowel sounds, no guarding EXTREMITIES: 2+ pulses, warm, well-perfused, no edema. Tophi Noted on patient's on hands at the DIP. NEUROLOGICAL: Cranial nerves II through XII grossly intact. Normal speech Laboratory Results - last 24 hr CBC, BMP 06/20/19 05:25 06/20/19 05:25 Active Medications Generic Name Dose Route Start Last Admin Trade Name Freq PRN Reason Stop Dose Admin Acetaminophen 650 mg 06/19/19 16:05 Tylenol - PO Q6H PRN pain 1-5 Aspirin 81 mg 06/19/19 10:00 06/20/19 10:07 Asa - PO 81 mg DAILY [facility] Administration Atorvastatin Calcium 10 mg 06/18/19 22:00 06/19/19 22:07 Lipitor - PO 10 mg HS [facility] Administration Cholecalciferol 1,000 unit 06/19/19 10:00 06/20/19 10:07 Vitamin D3 - PO 1,000 unit DAILY [facility] Administration Diltiazem HCl 30 mg 06/19/19 00:00 06/20/19 12:10 Cardizem - PO 30 mg Q6HPO [facility] Administration Diltiazem HCl 10 mg 06/19/19 22:42 Cardizem Injection - IVPUSH Q4H PRN TACHYCARDIA Heparin Sodium (Porcine) 1,000 unit 06/20/19 10:44 Heparin - IVPUSH PRN PRN Heparin Heparin Sodium (Porcine) 5,000 unit 06/20/19 10:44 Heparin - IVPUSH PRN PRN Heparin Ertapenem 1 gm/ Sodium 50 mls @ 100 mls/hr 06/19/19 10:00 06/20/19 12:11 Chloride IVPB 100 mls/hr DAILY [facility] Administration HEPARIN SOD,PORK IN 0.45% NACL 25,000 unit in 500 mls @ 16 mls/hr 06/20/19 11: 30 06/20/19 12:52 Heparin-1/2ns 25,000 Units/500 IVPB 800 units/hr TITR [facility] 16 mls/hr Administration Protocol 800 UNITS/HR Insulin Aspart 1 vial 06/18/19 16:30 06/20/19 12:11 Novolog Vial Sliding Scale - SQ 6 units TIDAC [facility] Administration Protocol Pantoprazole Sodium 40 mg 06/19/19 10:00 06/20/19 10:06 Protonix Iv IVPUSH 40 mg DAILY [facility] Administration Potassium Citrate/Citric Acid 20 meq 06/19/19 10:00 06/20/19 10:07 Cytra-K - PO 20 meq DAILY [facility] Administration Potassium Citrate/Citric Acid 5 meq 06/20/19 13:25 Cytra-K - PO 06/20/19 13:26 ONCE ONE Sitagliptin Phosphate 50 mg 06/18/19 16:30 06/20/19 06:45 Januvia - PO 50 mg BIDAC [facility] Administration Valsartan 320 mg 06/19/19 10:00 06/20/19 10:07 Diovan - PO 320 mg DAILY [facility] Administration ASSESSMENT/PLAN: 73 F with PMH of anemia, DM, HTN, HLD who presented with nausea vomiting and found to be septic secondary to pylenephritis caused by uretral stone in the left ureter. 1) Sepsis secondary to pyelonephritis -s/p cystoscopy and stent placement. -Urine culture shows lactose fermenting gram negative bacteria growing -Blood culture growing ESBL producing e.coli -WBC of 10.4 today -Ertapenem 1 gram Day 5. -ID consulted, appreciate recs -Compazine 10 mg IVPB Q6H PRN 2)SVT and Afib episodes at night -Cardiology consulted, appreciate recs -Cardizem 30 mg PO Q6H -Cardizem 10 mg IV Q4H PRN if >130 -Heparin Drip Started -Monitoring on Telemetery. -TSH- 0.95, Thyroid Hormone- 1.5 -Echo completed: EF was normal, LV function normal, LV size normal. Mild to moderate Mitral regurgitation. Mild Tricuspid regurgitation. RV systolic pressure elevated. 3)L. urteral stone -stone was not visible on x-ray. Potentially due to Gout. Allopurinol as outpatient. -stent in place -potassium citrate 25 mEq, urine pH=5.5 -Uric Acid level of 4.1 -Follow up KUB 4) Anemia -Stool occult blood was negative -Rectal exam was negative -Hgb was 7.3 in the morning. Repeat Hgb is 8.6 5)DELBERT -Creatinine 0.8 6) DM II -Insulin sliding scale -Sitagliptin 50 mg BIDAC [facility] 7)HTN -Diovan 320 mg Daily 8) HLD -Atorvastatin 10 mg PO HS F: No fluids. E: Monitor Potassium, mag, phosphate N: Diabetic salt restricted diet DVT: Heparin 5000 SQ TID Dispo: Admitted to Telemetry Visit type - Emergency Visit Emergency Visit: Yes ED Registration Date: 06/15/19 Care time: The patient presented to the Emergency Department on the above date and was hospitalized for further evaluation of their emergent condition. - New Patient This patient is new to me today: No - Critical Care Critical Care patient: No ATTENDING PHYSICIAN STATEMENT I saw and evaluated the patient. I reviewed the resident's note and discussed the case with the resident. I agree with the resident's findings and plan as documented. SUBJECTIVE: OBJECTIVE: ASSESSMENT AND PLAN:
[2019-06-20 15:12] LABS: BASO % 0.4 % (0-2.0); EOS % 0.5 % (0-4.5); HEMATOCRIT 27.1 % (32.4-45.2); HEMOGLOBIN 8.6 GM/dL (10.7-15.3); LYMPH % 13.2 % (8-40); MCH 23.1 pg (25.7-33.7); MCHC 31.7 g/dl (32.0-36.0); MEAN CELL VOLUME 72.7 fl (80-96); MEAN PLT VOLUME 7.5 fl (7.5-11.1); MONO % 8.6 % (3.8-10.2); NEUT % 77.3 % (42.8-82.8); PLATELET COUNT 344 K/MM3 (134-434); RBC 3.73 M/mm3 (3.60-5.2); RDW 17.4 % (11.6-15.6); WHITE BLOOD COUNT 12.2 K/mm3 (4.0-10.0)
[2019-06-20] MEDS: ATORVASTATIN CA 10 MG TABLET (FP) PO SCH (22:35)
[2019-06-21] MEDS: dilTIAZem HCL 30 MG TABLET (FP) PO SCH ×2 (00:26→06:25)
[2019-06-21] MEDS: sitaGLIPtin PHOSPHATE 50 MG TABLET PO SCH ×2 (06:25→17:11)
[2019-06-21] MEDS: INSULIN SLIDING SCALE (NOVOLOG) 1 VIAL SQ SCH ×3 (06:25→17:12)
[2019-06-21 07:02] LABS: BASO % 0.7 % (0-2.0); EOS % 1.6 % (0-4.5); HEMATOCRIT 24.3 % (32.4-45.2); HEMOGLOBIN 7.7 GM/dL (10.7-15.3); LYMPH % 19.9 % (8-40); MCH 23.1 pg (25.7-33.7); MCHC 31.8 g/dl (32.0-36.0); MEAN CELL VOLUME 72.6 fl (80-96); MEAN PLT VOLUME 7.7 fl (7.5-11.1); MONO % 8.5 % (3.8-10.2); NEUT % 69.3 % (42.8-82.8); PLATELET COUNT 318 K/MM3 (134-434); RBC 3.34 M/mm3 (3.60-5.2); RDW 17.6 % (11.6-15.6); WHITE BLOOD COUNT 8.5 K/mm3 (4.0-10.0)
[2019-06-21 07:50] LABS: BLOOD UREA NITROGEN 13.5 mg/dL (7-18); CALCIUM 7.9 mg/dL (8.5-10.1); CREATININE 0.8 mg/dL (0.55-1.3); MAGNESIUM 1.5 mg/dL (1.8-2.4); POTASSIUM 4.3 mmol/L (3.5-5.1)
--- NOTE | 2019-06-21 08:34 | PN ---
Teaching Attending Note Name of Resident: Socrates Wooten ATTENDING PHYSICIAN STATEMENT I saw and evaluated the patient. I reviewed the resident's note and discussed the case with the resident. I agree with the resident's findings and plan as documented. SUBJECTIVE: Patient is comfortable with no acute distress. No nausea or vomiting. Vital Signs Temperature 98.0 F 06/21/19 05:53 Pulse Rate 111 H 06/21/19 08:27 Respiratory Rate 18 06/21/19 08:27 Blood Pressure 122/68 06/21/19 08:27 O2 Sat by Pulse Oximetry (%) 97 06/20/19 22:00 GENERAL: The patient is awake, alert, and fully oriented, in no acute distress. HEAD: Normal with no signs of trauma. EYES: PERRL, extraocular movements intact, sclera anicteric, conjunctiva clear. ENT: Ears normal, oropharynx clear without exudates, moist mucous membranes. NECK: Trachea midline, full range of motion, supple. LUNGS: Breath sounds equal, clear to auscultation bilaterally, no wheezes, no crackles, no accessory muscle use. HEART: Regular rate and rhythm, S1, S2 positive, LEONIDES 3/6 no rub or gallop. ABDOMEN: Soft, nontender, nondistended, normoactive bowel sounds, no guarding, no rebound, no hepatosplenomegaly, no masses. EXTREMITIES: 2+ pulses, warm, well-perfused, no edema. NEUROLOGICAL: Cranial nerves II through XII grossly intact. Normal speech, gait not observed. PSYCH: Normal mood, normal affect. SKIN: Warm, dry, normal turgor, no rashes or lesions noted CBCD WBC 8.5 K/mm3 (4.0-10.0) 06/21/19 05:45 RBC 3.34 M/mm3 (3.60-5.2) L 06/21/19 05:45 Hgb 7.7 GM/dL (10.7-15.3) L 06/21/19 05:45 Hct 24.3 % (32.4-45.2) L 06/21/19 05:45 MCV 72.6 fl (80-96) L 06/21/19 05:45 MCHC 31.8 g/dl (32.0-36.0) L 06/21/19 05:45 RDW 17.6 % (11.6-15.6) H 06/21/19 05:45 Plt Count 318 K/MM3 (134-434) 06/21/19 05:45 MPV 7.7 fl (7.5-11.1) 06/21/19 05:45 CMP Sodium 140 mmol/L (136-145) 06/21/19 05:45 Potassium 4.3 mmol/L (3.5-5.1) 06/21/19 05:45 Chloride 105 mmol/L (98-107) 06/21/19 05:45 Carbon Dioxide 30 mmol/L (21-32) 06/21/19 05:45 Anion Gap 5 MMOL/L (8-16) L 06/21/19 05:45 BUN 13.5 mg/dL (7-18) 06/21/19 05:45 Creatinine 0.8 mg/dL (0.55-1.3) 06/21/19 05:45 Random Glucose 212 mg/dL (74-106) H 06/21/19 05:45 Calcium 7.9 mg/dL (8.5-10.1) L 06/21/19 05:45 Total Bilirubin 0.2 mg/dL (0.2-1) 06/18/19 06:20 AST 14 U/L (15-37) L 06/18/19 06:20 ALT 22 U/L (13-61) 06/18/19 06:20 Alkaline Phosphatase 71 U/L (45-117) 06/18/19 06:20 Total Protein 5.0 g/dl (6.4-8.2) L 06/18/19 06:20 Albumin 1.9 g/dl (3.4-5.0) L 06/18/19 06:20 CARDIAC ENZYMES Creatine Kinase 40 U/L (26-192) 06/19/19 00:20 Troponin I < 0.02 ng/ml (0.00-0.05) 06/19/19 00:20 Current Medications Generic Name Dose Route Start Last Admin Trade Name Freq PRN Reason Stop Dose Admin Acetaminophen 650 mg 06/19/19 16:05 Tylenol - PO Q6H PRN pain 1-5 Aspirin 81 mg 06/19/19 10:00 06/20/19 10:07 Asa - PO 81 mg DAILY [facility] Administration Atorvastatin Calcium 10 mg 06/18/19 22:00 06/20/19 22:35 Lipitor - PO 10 mg HS [facility] Administration Cholecalciferol 1,000 unit 06/19/19 10:00 06/20/19 10:07 Vitamin D3 - PO 1,000 unit DAILY [facility] Administration Diltiazem HCl 30 mg 06/19/19 00:00 06/21/19 06:25 Cardizem - PO 30 mg Q6HPO [facility] Administration Diltiazem HCl 10 mg 06/19/19 22:42 Cardizem Injection - IVPUSH Q4H PRN TACHYCARDIA Heparin Sodium (Porcine) 1,000 unit 06/20/19 10:44 06/20/19 22:35 Heparin - IVPUSH 1,000 unit PRN PRN Administration Heparin Heparin Sodium (Porcine) 5,000 unit 06/20/19 10:44 Heparin - IVPUSH PRN PRN Heparin Ertapenem 1 gm/ Sodium 50 mls @ 100 mls/hr 06/19/19 10:00 06/20/19 12:11 Chloride IVPB 100 mls/hr DAILY [facility] Administration HEPARIN SOD,PORK IN 0.45% NACL 25,000 unit in 500 mls @ 16 mls/hr 06/20/19 11: 30 06/20/19 22:36 Heparin-1/2ns 25,000 Units/500 IVPB 900 units/hr TITR [facility] 18 mls/hr Titration Protocol 800 UNITS/HR Insulin Aspart 1 vial 06/18/19 16:30 06/21/19 06:25 Novolog Vial Sliding Scale - SQ 2 units TIDAC [facility] Administration Protocol Pantoprazole Sodium 40 mg 06/19/19 10:00 06/20/19 10:06 Protonix Iv IVPUSH 40 mg DAILY [facility] Administration Potassium Citrate/Citric Acid 20 meq 06/19/19 10:00 06/20/19 10:07 Cytra-K - PO 20 meq DAILY [facility] Administration Sitagliptin Phosphate 50 mg 06/18/19 16:30 06/21/19 06:25 Januvia - PO 50 mg BIDAC [facility] Administration Valsartan 320 mg 06/19/19 10:00 06/20/19 10:07 Diovan - PO 320 mg DAILY [facility] Administration Home Medications Medication Instructions Recorded Aspirin 81 mg PO DAILY 06/15/19 Atenolol [Tenormin -] 50 mg PO DAILY 06/15/19 Atorvastatin Ca [Lipitor] 10 mg PO HS 06/15/19 Calcium Carbonate [Oyster Shell 500 mg PO DAILY 06/15/19 Calcium] Cholecalciferol (Vitamin D3) 1,000 unit PO DAILY 06/15/19 [Vitamin D3] Glipizide/Metformin HCl 1 each PO BID 06/15/19 [Glipizide-Metformin 5-500 mg] Omeprazole 40 mg PO DAILY 06/15/19 Sitagliptin Phosphate [Januvia] 50 mg PO BID 06/15/19 Telmisartan/Hydrochlorothiazid 1 each PO DAILY 06/15/19 [Telmisartan-Hctz 80-12.5 mg Tb] Home Medications Medication Instructions Recorded RX: Aspirin 81 mg PO DAILY 06/15/19 RX: Atorvastatin Ca [Lipitor] 10 mg PO HS 06/15/19 RX: Calcium Carbonate [Oyster 500 mg PO DAILY 06/15/19 Shell Calcium] RX: Cholecalciferol (Vitamin D3) 1,000 unit PO DAILY 06/15/19 [Vitamin D3] RX: Glipizide/Metformin HCl 1 each PO BID 06/15/19 [Glipizide-Metformin 5-500 mg] RX: Omeprazole 40 mg PO DAILY 06/15/19 Apixaban [Eliquis -] 2.5 mg PO BID #20 tablet 06/21/19 RX: Acetaminophen [Tylenol 650 mg PO Q6H PRN tablet 06/21/19 .Regular Strength -] RX: Allopurinol [Zyloprim -] 300 mg PO DAILY tablet 06/21/19 RX: Diltiazem Cd [Cardizem Cd -] 240 mg PO DAILY cap.cd.24h 06/21/19 RX: Ertapenem Sodium [Invanz -] 1 gm IVPB DAILY vial 06/21/19 RX: Heparin - 5,000 unit SQ TID vial 06/21/19 RX: Insulin Sliding Scale [Novolog 1 vial SQ TIDAC units 06/21/19 Vial Sliding Scale -] RX: Potassium Citrate/Citric Acid 20 meq PO DAILY ml 06/21/19 [Cytra-K -] RX: Valsartan [Diovan] 160 mg PO DAILY tablet 06/21/19 Microbiology 06/17/19 06:30 Blood - Peripheral Venous Blood Culture - Preliminary NO GROWTH OBTAINED AFTER 72 HOURS, INCUBATION TO CONTINUE FOR 2 DAYS. 06/17/19 06:25 Blood - Peripheral Venous Blood Culture - Preliminary NO GROWTH OBTAINED AFTER 72 HOURS, INCUBATION TO CONTINUE FOR 2 DAYS. 06/15/19 15:30 Stool Salmonella/Shigella Culture - Final NO GROWTH OF SALMONELLA OR SHIGELLA SPECIES OBTAINED 06/15/19 15:30 Stool Campylobacter Culture - Final NO GROWTH OF CAMPYLOBACTER SPECIES OBTAINED 06/15/19 15:30 Stool Yersinia Culture - Final 06/15/19 15:30 Stool Vibrio Culture - Final 06/15/19 15:30 Stool Escherichia coli 0157 Culture - Final NO GROWTH OF E COLI 0157 OBTAINED 06/15/19 14:56 Blood - Peripheral Venous Blood Culture - Final Escherichia Coli Esbl Cable Engineer 06/16/19 00:01 Urine - Urine - Catheterized Urine Culture - Final Escherichia Coli Esbl Cable Engineer 06/15/19 14:56 Blood - Peripheral Venous Blood Culture - Final Escherichia Coli Esbl Cable Engineer 06/15/19 07:57 Blood - Peripheral Venous Blood Culture - Final Escherichia Coli Esbl Cable Engineer 06/15/19 07:57 Blood - Peripheral Venous Blood Culture - Final Escherichia Coli Esbl Cable Engineer 06/15/19 15:30 Stool Clostridioides difficile Antigen - Final 06/15/19 15:30 Stool Clostridioides difficile Toxin Assay - Final 06/15/19 09:04 Urine - Urine Clean Catch Urine Culture - Final Contaminated: Please Repeat Microbiology 06/17/19 06:30 Blood Culture - Preliminary Blood - Peripheral Venous NO GROWTH OBTAINED AFTER 96 HOURS, INCUBATION TO CONTINUE FOR 1 DAYS. 06/17/19 06:25 Blood Culture - Preliminary Blood - Peripheral Venous NO GROWTH OBTAINED AFTER 96 HOURS, INCUBATION TO CONTINUE FOR 1 DAYS. Microbiology 06/17/19 06:30 Blood - Peripheral Venous Blood Culture - Preliminary NO GROWTH OBTAINED AFTER 96 HOURS, INCUBATION TO CONTINUE FOR 1 DAYS. 06/17/19 06:25 Blood - Peripheral Venous Blood Culture - Preliminary NO GROWTH OBTAINED AFTER 96 HOURS, INCUBATION TO CONTINUE FOR 1 DAYS. 06/15/19 15:30 Stool Salmonella/Shigella Culture - Final NO GROWTH OF SALMONELLA OR SHIGELLA SPECIES OBTAINED 06/15/19 15:30 Stool Campylobacter Culture - Final NO GROWTH OF CAMPYLOBACTER SPECIES OBTAINED 06/15/19 15:30 Stool Yersinia Culture - Final 06/15/19 15:30 Stool Vibrio Culture - Final 06/15/19 15:30 Stool Escherichia coli 0157 Culture - Final NO GROWTH OF E COLI 0157 OBTAINED 06/15/19 14:56 Blood - Peripheral Venous Blood Culture - Final Escherichia Coli Esbl Cable Engineer 06/16/19 00:01 Urine - Urine - Catheterized Urine Culture - Final Escherichia Coli Esbl Cable Engineer 06/15/19 14:56 Blood - Peripheral Venous Blood Culture - Final Escherichia Coli Esbl Cable Engineer 06/15/19 07:57 Blood - Peripheral Venous Blood Culture - Final Escherichia Coli Esbl Cable Engineer 06/15/19 07:57 Blood - Peripheral Venous Blood Culture - Final Escherichia Coli Esbl Cable Engineer 06/15/19 15:30 Stool Clostridioides difficile Antigen - Final 06/15/19 15:30 Stool Clostridioides difficile Toxin Assay - Final 06/15/19 09:04 Urine - Urine Clean Catch Urine Culture - Final Contaminated: Please Repeat ASSESSMENT AND PLAN: Patient is a 73 y/o female with PMHx of DM , HTN, HLP, anemia, who presented with 2 week hx of N/V. she was found to have sepsis # Sepsis due to Gram- bacteremia / acute pyelonephritis ( ESBL) in the setting of an obstructing L ureteral stone. s/p cystoscopy and retrograde ureterogram and stent placement. cont Ertapenem for 1 more week for total of 14 days, patient has a PICC line for total of 7/14 days. 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 # SVTS: EKG showed SVts. Now HR in 80s-90s. echo: mild to moderate MR, mild TR, left ventricul normal size. changed to cardizem 30mg q6h, from atenelol. cardio consult appreciated. Give metoprolol 5 mg IVP prn for PSVT >130 bpm, as per cardio, Keep K+ 4.0-4.5, Keep Mg 2.0-2.4, Keep PO4 2.5-4.9. # DELBERT: resolved # h/o HTN: on cardizem 240mg increased the dose from 120mg . decreased the dose of valsartan to 160mg since increased the dose of cardizem due to having BP around 120's of systolic, and elevated HR due to PSVT, follow up with cardio in week. # Microcytic anemia Anemia: transfuse if Hb < 7 , iron studies shows component of iron def - she was advised to f/u with GI as out pt for colon. and EGD ( never had one ) #H/o DM: continue home medds, and SSI for now. # DVT px :heparin
[2019-06-21] MEDS ORDERED: MAGNESIUM 4GM/H20 - 4 GM/100 ML IVPB IVPB ONE (10:15)
[2019-06-21] MEDS ORDERED: PT OWN MED DRAWER 7, Y5N ONE (10:41)
[2019-06-21] MEDS: PANTOPRAZOLE SODIUM 40 MG VIAL IVPUSH SCH (10:50)
[2019-06-21] MEDS: ERTAPENEM SODIUM 1 GM in SODIUM CHLORIDE 50 ML IVPB SCH (10:50)
[2019-06-21] MEDS: POTASSIUM CITRATE/CITRIC ACID 2 MEQ/ML ML PO SCH (10:50)
[2019-06-21] MEDS: VALSARTAN 160 MG TABLET (UD) PO SCH (10:51)
[2019-06-21] MEDS: ASPIRIN 81 MG CHEWABLE TABLETS PO SCH (10:51)
[2019-06-21] MEDS: CHOLECALCIFEROL (VIT D3) 1,000 UNIT (25 MCG) TABLET PO SCH (10:51)
[2019-06-21] MEDS ORDERED: MAGNESIUM SULF 50% (8.12 MEQ/2 ML-1 GM VIAL) IVPB ONE ×2 (11:24→12:00)
[2019-06-21] MEDS ORDERED: VALSARTAN 160 MG TABLET (UD) PO SCH (11:28)
--- NOTE | 2019-06-21 13:24 | PN ---
Progress Note, Physician History of Present Illness: stable no new issues - Current Medication List Current Medications: Active Medications Acetaminophen (Tylenol -) 650 mg PO Q6H PRN PRN Reason: pain 1-5 Aspirin (Asa -) 81 mg PO DAILY [facility] Last Admin: 06/21/19 10:51 Dose: 81 mg Atorvastatin Calcium (Lipitor -) 10 mg PO HS [facility] Last Admin: 06/20/19 22:35 Dose: 10 mg Cholecalciferol (Vitamin D3 -) 1,000 unit PO DAILY [facility] Last Admin: 06/21/19 10:51 Dose: 1,000 unit Diltiazem HCl (Cardizem Injection -) 10 mg IVPUSH Q4H PRN PRN Reason: TACHYCARDIA Diltiazem HCl (Cardizem Cd -) 240 mg PO DAILY [facility] Heparin Sodium (Porcine) (Heparin -) 1,000 unit IVPUSH PRN PRN PRN Reason: Heparin Last Admin: 06/20/19 22:35 Dose: 1,000 unit Heparin Sodium (Porcine) (Heparin -) 5,000 unit IVPUSH PRN PRN PRN Reason: Heparin Ertapenem 1 gm/ Sodium (Chloride) 50 mls @ 100 mls/hr IVPB DAILY [facility] Last Admin: 06/21/19 10:50 Dose: 100 mls/hr HEPARIN SOD,PORK IN 0.45% NACL (Heparin-1/2ns 25,000 Units/500) 25,000 unit in 500 mls @ 16 mls/hr IVPB TITR [facility]; Protocol Last Titration: 06/20/19 22:36 Dose: 900 units/hr, 18 mls/hr Insulin Aspart (Novolog Vial Sliding Scale -) 1 vial SQ TIDAC [facility]; Protocol Last Admin: 06/21/19 12:22 Dose: 4 units Pantoprazole Sodium (Protonix Iv) 40 mg IVPUSH DAILY [facility] Last Admin: 06/21/19 10:50 Dose: 40 mg Potassium Citrate/Citric Acid (Cytra-K -) 20 meq PO DAILY [facility] Last Admin: 06/21/19 10:50 Dose: 20 meq Sitagliptin Phosphate (Januvia -) 50 mg PO BIDAC [facility] Last Admin: 06/21/19 06:25 Dose: 50 mg Valsartan (Diovan -) 160 mg PO DAILY [facility] - Objective Vital Signs: Vital Signs Temperature 98.0 F 06/21/19 05:53 Pulse Rate 111 H 06/21/19 08:27 Respiratory Rate 18 06/21/19 08:27 Blood Pressure 122/68 06/21/19 08:27 O2 Sat by Pulse Oximetry (%) 97 06/20/19 22:00 Constitutional: Yes: No Distress, Calm Cardiovascular: Yes: S1, S2 Respiratory: Yes: Regular, CTA Bilaterally Gastrointestinal: Yes: Normal Bowel Sounds, Soft Musculoskeletal: Yes: WNL Extremities: Yes: WNL Neurological: Yes: Alert, Oriented Psychiatric: Yes: Alert, Oriented Labs: CBC, BMP 06/21/19 05:45 06/21/19 05:45 INR, PTT INR 1.18 (0.83-1.09) H 06/20/19 11:42 Assessment/Plan hydronephrosis ureteric stone leukocytosis gm negative bacteremia sepsis plan continue abx will need 2 weeks rest as per the team
--- NOTE | 2019-06-21 13:59 | DS ---
Physical Exam: SUBJECTIVE: Patient seen and examined in the morning. No acute events overnight on telemetry monitoring. No complaints of chest pain, shortness of breath, abdominal pain, no nausea, no vomiting, no diarrhea, no fever, no chills. OBJECTIVE: Vital Signs Period Temp Pulse Resp BP Sys/Ho Pulse Ox Last 24 Hr 98.0 F-99.3 F 96-111 18-22 122-149/68-81 97-97 PHYSICAL EXAM GENERAL: The patient is awake, alert, and fully oriented, in no acute distress. HEAD: Normal with no signs of trauma. EYES: PERRL, extraocular movements intact, sclera anicteric, conjunctiva clear. No ptosis. ENT: Ears normal, nares patent, oropharynx clear without exudates, moist mucous membranes. 2L NC in place. LUNGS: Breath sounds equal, clear to auscultation bilaterally, no wheezes, no crackles, no accessory muscle use. HEART: Regular rate and rhythm, S1, S2 without murmur, rub or gallop. ABDOMEN: Soft, nontender, nondistended, normoactive bowel sounds, no guarding EXTREMITIES: 2+ pulses, warm, well-perfused, no edema. Possible Tophi Noted on patient's on hands. NEUROLOGICAL: Cranial nerves II through XII grossly intact. Normal speech LABS Laboratory Results - last 24 hr CBC, BMP 06/21/19 05:45 06/21/19 05:45 HOSPITAL COURSE: Date of Admission:06/15/19 Date of Discharge: 06/21/19 73 F with PMH of anemia, DM, HTN, HLD who presented with nausea vomiting and found to be septic secondary to pyelonephritis caused by uretral stone in the left ureter. Patient was septic with hydronephrosis on imaging, urology was consulted. Urology inserted left ureteral stent and was placed on potassium citrate 20 meq PO. Stone was not visible on xray is most likely a uric acid stone. Patient was found to be growing ESBL producing E.coli on urine culture and blood cultures, was placed on Etrapenem 1 gram IV daily. Patient was noted to be tachycardic on the medical surgery floors, so was placed on telemetry monitoring. Was found to have SVT and Afib. Patient was given a PICC line and discharged to [facility] facility. Was discharged on cardizem 240 mg PO, apixaban 2.5 mg PO BID, Ertapenem 1 gram IV, Heparin 5000 units SQ, sliding scale insulin ,and valsartan 160 mg PO. Relevant Imaging done this stay: CT abdomen and pelvis: 10 mm obstructing stone just distal to the left uretopelvic junction, resulting in moderate left hydronephrosis with significant stranding of the perinephric fat and a small amount of free perinephric fluid. A few small left renal lower pole non-obstructing stones are visualized measuring up to 8mm. Small amount of free fluid in pelvis Abdomen X-Ray: Left ureteral stent in place with no sign of a discrete ureteral , renal, or bladder calculus noted. Echocardiogram: LV size is normal, LV function is normal. EF is normal. Mild to moderate mitral regurgitation. RV systolic pressure is elevated at 40-50 mmHg. Mild tricuspid regurgitation. Minutes to complete discharge: 35 Discharge Summary Problems reviewed: Yes Reason For Visit: SEPSIS DUE TO UNDETERMINED ORGANISM Current Active Problems Anemia (Acute) HTN (hypertension) (Acute) Hypoalbuminemia (Acute) PSVT (paroxysmal supraventricular tachycardia) (Acute) S/P ureteral stent placement (Acute) Sepsis (Acute) Condition: Stable - Instructions Diet, Activity, Other Instructions: You were admitted to the hospital because of an infection of your kidneys that occurred because you had a kidney stone. When you were admitted we had the urologist place a stent in your ureter to help with your urination. We treated you with antibiotics for your infection and you improved. You will continue to take antibiotics through the IV we have placed in you. We will be starting you on a new medication to help prevent future kidney stones. You will need to follow up with the urologist to continue treatment for your stone and removal of it. While you were here we noticed that your heart was beating faster than normal and sometimes skipping beats. We continued to monitor your heart and started you on new medications to keep your heart rate under control. You have atrial fibrillation. You will continue these new medications and follow up with the roof tile layer to continue treatment. While you were here you were found to be anemic (low red blood cells). You should follow up with your primary care physician and repeat blood work to check your anemia. (CBC) Please have this repeat blood work done in 1 week. Please take the following medications for your infection: Ertapenem 1 gram vial daily for 9 more days Please take the following medications for your kidney stone: Potassium Citrate 20 mEq by mouth daily Please take the following medications for your blood pressure: Valsartan 160 mg by mouth daily Please do not take your old dose of Valsartan Please take the following for your atrial fibrillation: Cardizem 240 mg by mouth daily Eliquis 2.5 mg by mouth twice a day Continue your other home medications as directed. You need to follow up with the urologist for continued treatment of your stone. PLease make an appointment in one week. At this appointment you will discuss when you should have the stent removed. It is very important to follow up with the Urologist. You need to follow up with the roof tile layer because of your new diagnosis of atrial fibrillation. Make an appointment in 1-2 weeks. Please follow up with your Dr. Knowles within a week. Return to the emergency department if you have worsening abdominal pain, pain on your sides, chest pain, nausea, vomiting, diarrhea. Referrals: Gustavo Knowles MD [Primary Care Provider] - 1 Week Prasanna Nolan MD [Staff Physician] - 1 Week Disposition: TRANSFER ACUTE CARE/OTHER HOSP - Home Medications Comprehensive Discharge Medication List: Ambulatory Orders Aspirin 81 mg PO DAILY 06/15/19 Atorvastatin Ca [Lipitor] 10 mg PO HS 06/15/19 Calcium Carbonate [Oyster Shell Calcium] 500 mg PO DAILY 06/15/19 Cholecalciferol (Vitamin D3) [Vitamin D3] 1,000 unit PO DAILY 06/15/19 Glipizide/Metformin HCl [Glipizide-Metformin 5-500 mg] 1 each PO BID 06/15/19 Omeprazole 40 mg PO DAILY 06/15/19 Acetaminophen [Tylenol .Regular Strength -] 650 mg PO Q6H PRN tablet 06/21/19 Apixaban [Eliquis -] 2.5 mg PO BID #20 tablet 06/21/19 Diltiazem Cd [Cardizem Cd -] 240 mg PO DAILY cap.cd.24h 06/21/19 Ertapenem Sodium [Invanz -] 1 gm IVPB DAILY vial 06/21/19 Heparin - 5,000 unit SQ TID vial 06/21/19 Insulin Sliding Scale [Novolog Vial Sliding Scale -] 1 vial SQ TIDAC units 04/01 Potassium Citrate/Citric Acid [Cytra-K -] 20 meq PO DAILY ml 06/21/19 Valsartan [Diovan] 160 mg PO DAILY tablet 06/21/19 This patient is new to me today: No Emergency Visit: Yes ED Registration Date: 06/15/19 Care time: The patient presented to the Emergency Department on the above date and was hospitalized for further evaluation of their emergent condition. Critical Care patient: No - Discharge Referral Referred to [facility] Med P.C.: No ATTENDING PHYSICIAN STATEMENT I saw and evaluated the patient. I reviewed the resident's note and discussed the case with the resident. I agree with the resident's findings and plan as documented. SUBJECTIVE: OBJECTIVE: ASSESSMENT AND PLAN:
[2019-06-21 15:15] VITALS: BP 151/74; PULSE 113; TEMP 98.4
[2019-06-21] MEDS ORDERED: ALLOPURINOL 300 MG TABLET (FP) PO SCH (15:45)
== END 2019-06-21 18:05 | DRG 854 ==
LOC: JER 06:15 → JERBED 09:56 → J6S 11:58 → J4W 06-18 15:02
PROVIDERS: ADMIT Internal Medicine; ATTEND Internal Medicine
PROC: 0T778DZ Dilation of Left Ureter with Intraluminal Device, Via Natural or Artificial Opening Endoscopic (ICD-10-PCS; principal; 2019-06-16)
PROC: BT0BZZZ Plain Radiography of Bladder and Urethra (ICD-10-PCS; 2019-06-16)
PROC: 02HV33Z Insertion of Infusion Device into Superior Vena Cava, Percutaneous Approach (ICD-10-PCS; 2019-06-21)
PROC: B518ZZA Fluoroscopy of Superior Vena Cava, Guidance (ICD-10-PCS; 2019-06-21)
DX: A41.51 Sepsis due to Escherichia coli [E. coli] (principal); N17.9 Acute kidney failure, unspecified; N13.6 Pyonephrosis; I47.1 Supraventricular tachycardia; I10 Essential (primary) hypertension; E78.5 Hyperlipidemia, unspecified; D64.9 Anemia, unspecified; R11.2 Nausea with vomiting, unspecified; D72.829 Elevated white blood cell count, unspecified; R33.9 Retention of urine, unspecified; M10.9 Gout, unspecified; D50.0 Iron deficiency anemia secondary to blood loss (chronic)
CPT/HCPCS: 36415; 36569; 71045-TC-FY; 71250-TC; 72070-TC-FY; 74018-TC-FY; 74176-TC; 76000-TC-FY; 77001-TC-FY; 80048; 80053; 80061; 81003; 82272; 82550; 82728; 82803; 82962; 83036; 83540; 83550; 83605; 83690; 83721; 83735; 84100; 84132; 84439; 84443; 84484; 84550; 85025; 85610; 85730; 87040; 87045; 87046; 87086; 87186; 87324; 87449; 87804; 87807; 93005; 93010; 93306-TC; 94760; 97116-GP; 97161-GP; 99284-25; C1751; J0131; J1644; J7030

== ENCOUNTER 2019-08-21 19:16 | Inpatient (IN) | payer OTHER ==
--- NOTE | 2019-08-21 19:31 | PDOC ---
Rapid Medical Evaluation Chief Complaint: Chest Pain Time Seen by Provider: 08/21/19 19:26 Medical Evaluation: Allergies Allergy/AdvReac Type Severity Reaction Status Date / Time azithromycin [From Zithromax] Allergy Mild Verified 06/15/19 08:46 hydrochlorothiazide Allergy Mild Verified 06/15/19 06:40 [From Zestoretic] hydrocodone Allergy Mild Verified 06/15/19 06:40 lisinopril [From Zestoretic] Allergy Mild Verified 06/15/19 06:40 meclizine Allergy Mild Verified 06/15/19 06:40 08/21/19 19:26 I have performed a brief in-person evaluation of this patient. The patient presents with a chief complaint of: s/p recent procedure for kidney stones at [facility] yesterday w/ stent placement which has since fell out per pt, here w/ n/v and fever. Also c/o CP and SOB which started since procedure per daughter. H/o HTN and DM. Pertinent physical exam findings:stable and well jesse I have ordered the following:labs/ua The patient will proceed to the ED for further evaluation Discharge Disposition - Diagnosis Nausea and vomiting Qualifiers: Vomiting type: unspecified Vomiting Intractability: non-intractable Qualified Code(s): R11.2 - Nausea with vomiting, unspecified - Referrals - Patient Instructions - Post Discharge Activity
--- NOTE | 2019-08-21 20:23 | PDOC ---
Attending Attestation - Resident Resident Name: HyunJudith - ED Attending Attestation I have performed the following: I have examined & evaluated the patient, The case was reviewed & discussed with the resident, I agree w/resident's findings & plan - HPI HPI: 08/21/19 22:17 see resident hpi - Physicial Exam PE: 08/21/19 22:17 agree with resident exam - Medical Decision Making 08/21/19 22:17 73-year-old female status post ureteral stenting yesterday now with increased lethargy Labs significant for leukocytosis and hypokalemia Case discussed with patient's urologist who will be able to see her in consultation, he has requested panculture as well as antibiotics and admission to medical service
[2019-08-21 20:59] LABS: BASO % 0.2 % (0-2.0); HEMATOCRIT 25.1 % (32.4-45.2); HEMOGLOBIN 7.9 GM/dL (10.7-15.3); MCH 24.4 pg (25.7-33.7); MCHC 31.3 g/dl (32.0-36.0); MEAN PLT VOLUME 6.5 fl (7.5-11.1); MONO % 5.7 % (3.8-10.2); NEUT % 86.1 % (42.8-82.8); PLATELET COUNT 448 K/MM3 (134-434); RBC 3.22 M/mm3 (3.60-5.2); WHITE BLOOD COUNT 17.8 K/mm3 (4.0-10.0)
[2019-08-21 21:30] LABS: ALBUMIN 2.5 g/dl (3.4-5.0); ALK PHOS 82 U/L (45-117); ANION GAP 9 MMOL/L (8-16); BILIRUBIN,TOTAL 0.6 mg/dL (0.2-1); CALCIUM 7.2 mg/dL (8.5-10.1); CHLORIDE 93 mmol/L (98-107); CO2 32 mmol/L (21-32); CREATININE 1.2 mg/dL (0.55-1.3); GLUCOSE,RANDOM 214 mg/dL (74-106); SGOT/AST 14 U/L (15-37); SGPT/ALT 18 U/L (13-61); SODIUM 135 mmol/L (136-145); TOT PROT 6.7 g/dl (6.4-8.2)
[2019-08-21 21:31] LABS: POTASSIUM 2.4 mmol/L (3.5-5.1)
--- NOTE | 2019-08-21 21:32 | PDOC ---
History of Present Illness - General Chief Complaint: Chest Pain Stated Complaint: CHEST PAIN Time Seen by Provider: 08/21/19 19:26 - History of Present Illness Initial Comments: Mary Martínez is a 73yo woman with a PMH of anemia NIDDM, HTN, HLD, prior admission for sepsis secondary to infected kidney stone c/b development of a- fib and SVT, one day s/p left kidney stone removal (exact procedure unknown) and ureteral stent placement who was brought to the ED with multiple complaints including two months of frequent vomiting, generalized weakness, altered mental status, chest pain, and that her ureteral stent "fell out" today. Ms Martínez is speaking only minimally, but her niece is present to provide information. The niece says that the patient has been unable to keep down anything for several months, which they attributed to the kidney stones. However , she had a stent placed in June, and then a procedure to remove the stone yesterday at [facility]. The niece says that the patient had a high fever following her procedure yesterday but was discharged home with a normal temperature. She has continued to feel unwell with increased nausea/vomiting since yesterday. She also complained of chest pain earlier today. The neice also note that the patient has appeared pale and has "not been herself." Reportedly, Ms Martínez is usually very talkative, but she has hardly been saying anyting today. She has also appeared very fatigued. Other than the fever post-procedure yesterday, the patient has had no known recent fevers/chills, change in frequency of bowel movements, urinary symptoms, severe abdominal pain, difficulty breathing, lightheadedness, or diaphoresis. She reports having a daily bowl movement and voids 3-4 times per day. She denies bilious vomiting or hematemesis. She has not ever been evaluated by GI. Currently, she denies any continued chest pain, nausea, vomiting, or difficulty breathing. Past History - Past Medical History Allergies/Adverse Reactions: Allergies Allergy/AdvReac Type Severity Reaction Status Date / Time azithromycin [From Zithromax] Allergy Mild Verified 08/21/19 19:31 hydrochlorothiazide Allergy Mild Verified 08/21/19 19:31 [From Zestoretic] hydrocodone Allergy Mild Verified 08/21/19 19:31 lisinopril [From Zestoretic] Allergy Mild Verified 08/21/19 19:31 meclizine Allergy Mild Verified 08/21/19 19:31 Home Medications: Ambulatory Orders Aspirin 81 mg PO DAILY 06/15/19 Atorvastatin Ca [Lipitor] 10 mg PO HS 06/15/19 Calcium Carbonate [Oyster Shell Calcium] 500 mg PO DAILY 06/15/19 Cholecalciferol (Vitamin D3) [Vitamin D3] 1,000 unit PO DAILY 06/15/19 Glipizide/Metformin HCl [Glipizide-Metformin 5-500 mg] 1 each PO BID 06/15/19 Omeprazole 40 mg PO DAILY 06/15/19 Acetaminophen [Tylenol .Regular Strength -] 650 mg PO Q6H PRN tablet 06/21/19 Allopurinol [Zyloprim -] 300 mg PO DAILY tablet 06/21/19 Apixaban [Eliquis -] 2.5 mg PO BID #20 tablet 06/21/19 Diltiazem Cd [Cardizem Cd -] 240 mg PO DAILY cap.cd.24h 06/21/19 Ertapenem Sodium [Invanz -] 1 gm IVPB DAILY vial 06/21/19 Heparin - 5,000 unit SQ TID vial 06/21/19 Insulin Sliding Scale [Novolog Vial Sliding Scale -] 1 vial SQ TIDAC units 04/01 Potassium Citrate/Citric Acid [Cytra-K -] 20 meq PO DAILY ml 06/21/19 Valsartan [Diovan] 160 mg PO DAILY tablet 06/21/19 COPD: No Diabetes: Yes HTN: Yes Hypercholesterolemia: Yes Kidney Stones: Yes - Psycho Social/Smoking Cessation Hx Smoking History: Never smoked Have you smoked in the past 12 months: No Information on smoking cessation initiated: No Hx Alcohol Use: No Drug/Substance Use Hx: No Substance Use Type: None Review of Systems - Review of Systems Comments:: General: + fevers, no chills, no weight or appetite change, + malaise HEENT: No changes in vision, no changes in hearing, no congestion, no sore throat CV: + chest pain, no palpitations, no LE edema Pulm: No SOB, no cough, no wheezing GI: +Nausea/vomiting, no change in bowel habits, no melena : No frequency, no urgency, no dysuria Musc: No back pain, no joint swelling, no recent injury Skin: No rash, no lesions, no erythema Endo: No excessive thirst, no heat/cold intolerance Heme: No unusual bruising or bleeding, no swollen glands Neuro: No syncope, no numbness/tingling, no focal weakness Vasc: No claudication Psych: No recent change in mood, no SI or HI *Physical Exam - Vital Signs Last Vital Signs Temp Pulse Resp BP Pulse Ox 98.3 F 87 17 104/46 L 97 08/21/19 19:26 08/21/19 19:26 08/21/19 19:26 08/21/19 19:26 08/21/19 19:26 - Physical Exam General: Comfortable, no acute distress HEENT: Atraumatic, PERRL, EOMI, MMM, voice normal, normal neck ROM Cards: RRR, no murmur appreciated, no reproducible pain Pulm: Comfortable on room air, clear to auscultation bilaterally Abd: Soft, nontender, nondistended : No CVA tenderness Ext: Atraumatic. No LE edema. ROM intact. WWP Skin: Normal color, no rashes or lesions Neuro: A&Ox3, CN grossly intact, normal speech, motor/sensory grossly intact and symmetric Psych: Mood appropriate to situation ED Treatment Course - LABORATORY CBC & Chemistry Diagram: 08/21/19 20:30 08/21/19 20:30 - ADDITIONAL ORDERS Additional order review: 08/21/19 20:30 RBC 3.22 L MCV 78.0 L MCHC 31.3 L RDW 20.0 H MPV 6.5 L D Neutrophils % 86.1 H D Lymphocytes % 8.0 D Monocytes % 5.7 Eosinophils % 0.0 D Basophils % 0.2 Medical Decision Making - Medical Decision Making 08/21/19 21:30 Mary Martínez is a 73yo woman with a PMH of anemia NIDDM, HTN, HLD, prior admission for sepsis secondary to infected kidney stone c/b development of a- fib and SVT, one day s/p left kidney stone removal (exact procedure unknown) and ureteral stent placement who was brought to the ED with multiple complaints including two months of frequent vomiting, generalized weakness, altered mental status, chest pain, and that her ureteral stent "fell out" today. - EKG completed. Tachycardia with HR 112, sinus rhythm, left axis, long QTc at 535. Notable for t-wave flattening in lateral leads - Labs reviewed. Notable for leukocytosis to nearly 18, hypokalemia to 2.4. BUN/ Cr also slightly elevated to 18/1.2 from 13/0.8 in June - BP soft at 104/40's. Normally SBP in 130-140's per chart review. - IVF, IV potassium ordered 08/21/19 22:07 - Blood cultures, lactate, rectal temperature ordered due to concern for bacteremia - Called Dr Juan C Soriano, pt's urologist, regarding procedure yesterday. Recommending IVF, IV antibiotics. Recommends zosyn pending final cultures from her UA/culture from yesterday, which are positive. He does not feel the ureteral stone needs to be replaced at this time. - Per chart review, was on ertapenem in June for sepsis secondary to infected renal stone. Will order ertapenem when cultures are completed. 08/21/19 22:28 - 100.2 rectal temp, not febrile - Microblog sent for admission - Additional ED care to be completed by Dr Wilson Discussed with Dr Yaw Purvis PGY2 Discharge - Discharge Information Problems reviewed: Yes Clinical Impression/Diagnosis: Malaise and fatigue, DELBERT (acute kidney injury), Acute electrocardiogram changes Nausea and vomiting Qualifiers: Vomiting type: unspecified Vomiting Intractability: non-intractable Qualified Code(s): R11.2 - Nausea with vomiting, unspecified Leukocytosis Qualifiers: Leukocytosis type: unspecified Qualified Code(s): D72.829 - Elevated white blood cell count, unspecified - Admission Yes - Follow up/Referral Referrals: Gustavo Knowles MD [Primary Care Provider] - - Patient Discharge Instructions - Post Discharge Activity
[2019-08-21] MEDS ORDERED: SODIUM CHLORIDE 0.9% 500 ML INFUS.BAG IV ONE (21:52)
[2019-08-21] MEDS: KCL 10 MEQ IVPB 10 MEQ/100 ML INFUS.BAG IVPB SCH ×2 (22:11→23:27)
[2019-08-21] MEDS ORDERED: KCL 10 MEQ IVPB 30 MEQ/300 ML INFUS.BAG IVPB ONE (22:17)
[2019-08-21] MEDS ORDERED: ERTAPENEM SODIUM 0.5 GM in SODIUM CHLORIDE 50 ML IVPB ONE (23:37)
--- NOTE | 2019-08-21 23:54 | PN ---
Teaching Attending Note Name of Resident: Janet Cruz ATTENDING PHYSICIAN STATEMENT I saw and evaluated the patient. I reviewed the resident's note and discussed the case with the resident. I agree with the resident's findings and plan as documented. SUBJECTIVE: 73 F with PMH of anemia, DM, HTN, HLD Recent admission, 06/15/19-06/21/19 for sepsis secondary to pyelonephritis caused by ureter stone in left ureter, Status post left ureter stent placement. At that admission, patient was found to grow ESBL E. coli in her urine acquired treatment with Ertapenem. Patient allegedly had ureter stent Removed on 08/20/[address] [facility] and subsequently developed fever, malaise. OBJECTIVE: Last Vital Signs Temp Pulse Resp BP Pulse Ox 100.2 F H 87 17 104/46 L 97 08/21/19 21:52 08/21/19 19:26 08/21/19 19:26 08/21/19 19:26 08/21/19 19:26 GENERAL: Well developed, well nourished. Awake and alert. No acute distress. HEENT: Normocephalic, atraumatic. PERRLA, EOMI. No conjunctival pallor. Sclera are non- icteric. Moist mucous membranes. Oropharynx is clear. NECK: Supple. Full ROM. No JVD. Carotid pulses 2+ and symmetric, without bruits. No thyromegaly. No lymphadenopathy. CARDIOVASCULAR: Regular rate and rhythm. No murmurs, rubs, or gallops. Distal pulses are 2+ and symmetric. PULMONARY: No evidence of respiratory distress. Lungs clear to auscultation bilaterally. No wheezing, rales or rhonchi. ABDOMINAL: Soft. Non-tender. Non-distended. No rebound or guarding. No organomegaly. Normoactive bowel sounds. MUSCULOSKELETAL Normal range of motion at all joints. No bony deformities or tenderness. No CVA tenderness. EXTREMITIES: No cyanosis. No clubbing. No edema. No calf tenderness. SKIN: Warm and dry. Normal capillary refill. No rashes. No jaundice. NEUROLOGICAL: Alert, awake, appropriate. Cranial nerves 2-12 intact. No deficits to light touch and temperature in face, upper extremities and lower extremities. No motor deficits in the in face, upper extremities and lower extremities. Normoreflexic in the upper and lower extremities. PSYCHIATRIC: Cooperative. Good eye contact. Appropriate mood and affect. Abnormal Lab Results 08/21/19 08/21/19 20:30 20:30 WBC 17.8 H RBC 3.22 L Hgb 7.9 L Hct 25.1 L MCV 78.0 L MCH 24.4 L MCHC 31.3 L RDW 20.0 H Plt Count 448 H D MPV 6.5 L D Absolute Neuts (auto) 15.3 H Neutrophils % 86.1 H D Sodium 135 L Potassium 2.4 L* Chloride 93 L Random Glucose 214 H Calcium 7.2 L AST 14 L Albumin 2.5 L Imaging studies reviewed ASSESSMENT AND PLAN: 73-year-old woman status post recent urological manipulation at [facility]. Sepsis secondary to complicated urinary tract infection with high leukocytosis, chills and fever. Allegedly stent removal in ureter. Suspect post procedure bacteremia. Likely bacterial seeding into bloodstream.Given recent cultures of ESBL E. coli will treat with ertapenem at this time. Previous cultures of urine were sensitive to ertapenem. Electrolyte derangementshyponatremia,Severe hypokalemia, suspect may be secondary to persistent vomiting as well as poor p.o. intake. Would admit to telemetry at this time given severe hypokalemia Supplement potassium IV n.p.o. and recheck EKG to evaluate for any changes which can be caused by hypokalemia Check magnesium and phosphate Needs blood cultures x2 and urine culture prior to antibiotics Ertapenem 1 g IV stat and every 24 hours Infectious disease consultation Urology consultation N.p.o. Zofran PRN nausea and vomiting IV fluid hydration Abdomen and pelvis CT without contrast #Severe microcytic anemia Iron studies Ferritin Vitamin B12 Stool for occult blood #Diabetes mellitus with severely uncontrolled hyperglycemia Tight NovoLog sliding scale Basal insulin A1c #Hypoalbuminemia #DVT prophylaxisheparin subcutaneously
[2019-08-22] MEDS ORDERED: POTASSIUM CHLORIDE ORAL LIQUID 20 MEQ/15 ML PO ONE (00:12)
[2019-08-22] MEDS: KCL 10 MEQ IVPB 10 MEQ/100 ML INFUS.BAG IVPB SCH (00:45)
--- NOTE | 2019-08-22 00:56 | HP ---
CHIEF COMPLAINT: N/V PCP: Dr Gustavo Knowles HISTORY OF PRESENT ILLNESS: 73 yo F with a PMH of anemia of unknown etiology by pt, DM, HTN, HLD, admitted in June for sepsis secondary to infected kidney stone (ESBL +) s/p left kidney stone removal yesterday and ureteral stent placement presenting to the ED due to fever, worsening nausea/ vomiting, generalized weakness and because her ureteral stent "fell out" today. According to the pt, she has been having nausea and vomiting for months but that acutely worsened after her surgery yesterday. She endorsed an episode fever following her procedure yesterday but was discharged home with a normal temperature. She also had blood in her urine s /p procedure but resolved the same day. Pt admits to having She denied any burning on urination, lower abdominal pain, urgency or frequency, chest pain, SOB, or BM changes. Has never seen a GI doctor before. ER course was notable for: (1) VS with temp 100.2 rectal, CBC with leukocytosis 17.8, anemia 7.9/25.1 MCV 78, CMP hypokalemia 2.4, BG 214 , LA 0.9, Ca 7.2 (8.4) albumin 2.5, trop neg (2) UA positive for UTI (tho pt just had manipulation) and 2+ blood (3) Uro Dr Soriano consulted will see pt t/m and to panculture and start Abx Recent Travel: none PAST MEDICAL HISTORY: as above PAST SURGICAL HISTORY: no previous Social History: Smoking:denies Alcohol:denies Drugs: denies Allergies azithromycin [From Zithromax] Allergy (Mild, Verified 08/21/19 19:31) hydrochlorothiazide [From Zestoretic] Allergy (Mild, Verified 08/21/19 19:31) hydrocodone Allergy (Mild, Verified 08/21/19 19:31) lisinopril [From Zestoretic] Allergy (Mild, Verified 08/21/19 19:31) meclizine Allergy (Mild, Verified 08/21/19 19:31) HOME MEDICATIONS: Home Medications Medication Instructions Recorded Aspirin 81 mg PO DAILY 06/15/19 Atorvastatin Ca [Lipitor] 10 mg PO HS 06/15/19 Calcium Carbonate [Oyster Shell 500 mg PO DAILY 06/15/19 Calcium] Cholecalciferol (Vitamin D3) 1,000 unit PO DAILY 06/15/19 [Vitamin D3] Glipizide/Metformin HCl 1 each PO BID 06/15/19 [Glipizide-Metformin 5-500 mg] Omeprazole 40 mg PO DAILY 06/15/19 Acetaminophen [Tylenol .Regular 650 mg PO Q6H PRN tablet 06/21/19 Strength -] Allopurinol [Zyloprim -] 300 mg PO DAILY tablet 06/21/19 Apixaban [Eliquis -] 2.5 mg PO BID #20 tablet 06/21/19 Diltiazem Cd [Cardizem Cd -] 240 mg PO DAILY cap.cd.24h 06/21/19 Ertapenem Sodium [Invanz -] 1 gm IVPB DAILY vial 06/21/19 Heparin - 5,000 unit SQ TID vial 06/21/19 Insulin Sliding Scale [Novolog 1 vial SQ TIDAC units 06/21/19 Vial Sliding Scale -] Potassium Citrate/Citric Acid 20 meq PO DAILY ml 06/21/19 [Cytra-K -] Valsartan [Diovan] 160 mg PO DAILY tablet 06/21/19 REVIEW OF SYSTEMS CONSTITUTIONAL: fever Absent: chills, diaphoresis, generalized weakness, malaise, loss of appetite, weight change HEENT: Absent: rhinorrhea, nasal congestion, throat pain, throat swelling, difficulty swallowing, mouth swelling, ear pain, eye pain, visual changes CARDIOVASCULAR: Absent: chest pain, syncope, palpitations, irregular heart rate, lightheadedness , peripheral edema RESPIRATORY: Absent: cough, shortness of breath, dyspnea with exertion, orthopnea, wheezing, stridor, hemoptysis GASTROINTESTINAL:abdominal pain, nausea, vomiting Absent: , abdominal distension,, diarrhea, constipation, melena, hematochezia GENITOURINARY: Absent: dysuria, frequency, urgency, hesitancy, hematuria, flank pain, genital pain MUSCULOSKELETAL: Absent: myalgia, arthralgia, joint swelling, back pain, neck pain SKIN: Absent: rash, itching, pallor HEMATOLOGIC/IMMUNOLOGIC: Absent: easy bleeding, easy bruising, lymphadenopathy, frequent infections ENDOCRINE: Absent: unexplained weight gain, unexplained weight loss, heat intolerance, cold intolerance NEUROLOGIC: Absent: headache, focal weakness or paresthesias, dizziness, unsteady gait, seizure, mental status changes, bladder or bowel incontinence PSYCHIATRIC: Absent: anxiety, depression, suicidal or homicidal ideation, hallucinations. PHYSICAL EXAMINATION Vital Signs - 24 hr 08/21/19 08/21/19 19:26 21:52 Temperature 98.3 F 100.2 F H Pulse Rate 87 Respiratory 17 Rate Blood Pressure 104/46 L O2 Sat by Pulse 97 Oximetry (%) GENERAL: Awake, alert, and fully oriented, in no acute distress. HEAD: Normal with no signs of trauma. EYES: Pupils equal, round and reactive to light, extraocular movements intact, sclera anicteric, conjunctiva clear. No lid lag. EARS, NOSE, THROAT: oropharynx clear without exudates. Moist mucous membranes. NECK: Normal range of motion, supple without lymphadenopathy, JVD, or masses. LUNGS: Breath sounds equal, clear to auscultation bilaterally. No wheezes, and no crackles. No accessory muscle use. HEART: Regular rate and rhythm, normal S1 and S2 without murmur, rub or gallop. ABDOMEN: Soft, nontender, not distended, normoactive bowel sounds, no guarding, no rebound, no masses. No hepatomegaly or splenomegaly. MUSCULOSKELETAL: Normal range of motion at all joints. No bony deformities or tenderness. No CVA tenderness. UPPER EXTREMITIES: 2+ pulses, warm, well-perfused. No cyanosis. No clubbing. No peripheral edema. LOWER EXTREMITIES: 2+ pulses, warm, well-perfused. No calf tenderness. No peripheral edema. NEUROLOGICAL: Cranial nerves II-XII intact. Normal speech. motor strength 5/5 in all muscle groups and sensation intact PSYCHIATRIC: Cooperative. Good eye contact. Appropriate mood and affect. SKIN: Warm, dry, normal turgor, no rashes or lesions noted, normal capillary refill. Laboratory Results - last 24 hr 08/21/19 08/21/19 08/21/19 20:30 20:30 22:00 WBC 17.8 H RBC 3.22 L Hgb 7.9 L Hct 25.1 L MCV 78.0 L MCH 24.4 L MCHC 31.3 L RDW 20.0 H Plt Count 448 H D MPV 6.5 L D Absolute Neuts (auto) 15.3 H Neutrophils % 86.1 H D Lymphocytes % 8.0 D Monocytes % 5.7 Eosinophils % 0.0 D Basophils % 0.2 Nucleated RBC % 0 Sodium 135 L Potassium 2.4 L* Chloride 93 L Carbon Dioxide 32 Anion Gap 9 BUN 18.0 Creatinine 1.2 Est GFR (CKD-EPI)AfAm 51.56 Est GFR (CKD-EPI)NonAf 44.48 Random Glucose 214 H Lactic Acid 0.9 Calcium 7.2 L Total Bilirubin 0.6 AST 14 L ALT 18 Alkaline Phosphatase 82 Creatine Kinase 79 Troponin I < 0.02 Total Protein 6.7 Albumin 2.5 L ASSESSMENT/PLAN: 73 yo F with a PMH of anemia of unknown etiology by pt, DM, HTN, HLD, admitted in June for sepsis secondary to infected kidney stone (ESBL +) s/p left kidney stone removal yesterday and ureteral stent placement presenting to the ED due to fever, worsening nausea/ vomiting, generalized weakness and because her ureteral stent "fell out" today. +UA with poss post procedural bacteremia due to manipulation fever, chills, N/V, leukocytosis Stone removal and uteral stent placement yesterday Hx of ESBL+ culture on last admission in june tx with ertapenem at the time will give ertapenem 1 g IV daily until culture speciation and sensitivity urine and blood cultures sent Uro Dr Soriano consulted and recs appreciated as above ID Dr Lopez consulted Abdomen and pelvis CT without contrast NS @100 cc/h NPO nausea/vomiting QTC prolongued 535. Nothing for now as pt has Meclizine allergy Isolation precautions for ESBL positive Hypokalemia, hypomagnesemia and Hyponatremia most likely in the setting of multiple episodes of N/V and decreased PO intake K 2.4, mag 0.9, Na 135 EKg showed prolongued QTC K runs x3 for hypokalemia NS@ 100cc/h for mild hyponatremia f/u repeat bmp after repletion mag sulfate x2 and phos ordered f/u repeat bmp and mag level F/u morning EKG Anemia with microcytosis no hx of GI visit or colonoscopy rectal exam no hemorrhoids FOBT pending Iron studies Ferritin retic count B12 and folate GI referral outpatient DM with elevated BG on admission BG 214 ISS BGM A1c HTN BP borderline will hold off BP meds for now HLD resume once med rec and tolerate PO Hypoalbuminemia most likely due to poor appetite for months albumin 2.5 DVT ppx lovenox daily Admit to tele Visit type - Emergency Visit Emergency Visit: Yes ED Registration Date: 08/21/19 Care time: The patient presented to the Emergency Department on the above date and was hospitalized for further evaluation of their emergent condition. - New Patient This patient is new to me today: No - Critical Care Critical Care patient: No ATTENDING PHYSICIAN STATEMENT I saw and evaluated the patient. I reviewed the resident's note and discussed the case with the resident. I agree with the resident's findings and plan as documented. SUBJECTIVE: OBJECTIVE: ASSESSMENT AND PLAN:
[2019-08-22 01:07] LABS: EPI CELLS 1.5 /HPF (0-5/HPF); HYALINE CASTS 26 /lpf (0-8); URINE APPEARANCE CLOUDY; URINE BACTERIA 1005.9 /hpf (NEGATIVE); URINE BILIRUBIN NEGATIVE (NEGATIVE); URINE COLOR YELLOW; URINE GLUCOSE (UA) NEGATIVE (NEGATIVE); URINE KETONE TRACE (NEGATIVE); URINE LEUK ESTERASE 2+ (NEGATIVE); URINE NITRITE POSITIVE (NEGATIVE); URINE PROTEIN 2+ (NEGATIVE); URINE RBC 17 /hpf (0-4); URINE UROBILINOGEN 0.2 mg/dL (0.2-1.0); URINE WBC 118 /hpf (0-5)
[2019-08-22] MEDS ORDERED: POTASSIUM CHLORIDE ORAL LIQUID 20 MEQ/15 ML ONE (01:12)
--- NOTE | 2019-08-22 01:32 | PDOC ---
*Physical Exam - Vital Signs Last Vital Signs Temp Pulse Resp BP Pulse Ox 100.2 F H 87 17 104/46 L 97 08/21/19 21:52 08/21/19 19:26 08/21/19 19:26 08/21/19 19:26 08/21/19 19:26 ED Treatment Course - LABORATORY CBC & Chemistry Diagram: 08/23/19 06:00 08/23/19 13:35 - ADDITIONAL ORDERS Additional order review: Laboratory Results 08/22/19 08/21/19 08/21/19 00:52 22:00 20:30 Sodium 135 L Potassium 2.4 L* Chloride 93 L Carbon Dioxide 32 Anion Gap 9 BUN 18.0 Creatinine 1.2 Est GFR (CKD-EPI)AfAm 51.56 Est GFR (CKD-EPI)NonAf 44.48 Random Glucose 214 H Lactic Acid 0.9 Calcium 7.2 L Total Bilirubin 0.6 AST 14 L ALT 18 Alkaline Phosphatase 82 Creatine Kinase 79 Troponin I < 0.02 Total Protein 6.7 Albumin 2.5 L Urine Color Yellow Urine Appearance Cloudy Urine pH 5.0 Ur Specific [place] 1.014 Urine Protein 2+ H Urine Glucose (UA) Negative Urine Ketones Trace H Urine Blood 2+ H Urine Nitrite Positive H Urine Bilirubin Negative Urine Urobilinogen 0.2 Ur Leukocyte Esterase 2+ H Urine WBC (Auto) 118 Urine RBC (Auto) 17 Urine Casts (Auto) 26 U Epithel Cells (Auto) 1.5 Urine Bacteria (Auto) 1005.9 08/21/19 20:30 RBC 3.22 L MCV 78.0 L MCHC 31.3 L RDW 20.0 H MPV 6.5 L D Neutrophils % 86.1 H D Lymphocytes % 8.0 D Monocytes % 5.7 Eosinophils % 0.0 D Basophils % 0.2 - Medications Given in the ED: ED Medications Discontinued Medications Generic Name Dose Route Start Last Admin Trade Name Freq PRN Reason Stop Dose Admin Potassium Chloride 10 meq in 100 mls @ 100 mls/hr 08/21/19 22:00 08/22/19 00: 45 Potassium Chloride 10 Meq Premix Ivpb - IVPB 08/22/19 00:59 100 mls/hr Q60M CHIQUI Administration Ertapenem 0.5 gm/ Sodium 50 mls @ 100 mls/hr 08/21/19 23:37 08/22/19 00:54 Chloride IVPB 08/22/19 00:06 100 mls/hr ONCE ONE Administration Potassium Chloride 40 meq 08/22/19 00:12 08/22/19 01:00 Potassium Chloride Oral Liquid PO 08/22/19 00:13 40 meq ONCE ONE Administration Sodium Chloride 1,000 ml 08/21/19 21:52 08/21/19 22:11 Normal Saline - IV 08/21/19 21:53 1,000 ml ONCE ONE Administration Medical Decision Making - Medical Decision Making 08/22/19 01:31 Care taken over from Dr. Purvis. Pt endorsed to Dr. Cruz for admission. 08/22/19 06:19 Call from [facility] stating patient has L pyelo on CT w/ nonobstructing stones. Inpt team microblogged. Discharge - Discharge Information Problems reviewed: Yes Clinical Impression/Diagnosis: Malaise and fatigue, DELBERT (acute kidney injury), Acute electrocardiogram changes Nausea and vomiting Qualifiers: Vomiting type: unspecified Vomiting Intractability: non-intractable Qualified Code(s): R11.2 - Nausea with vomiting, unspecified Leukocytosis Qualifiers: Leukocytosis type: unspecified Qualified Code(s): D72.829 - Elevated white blood cell count, unspecified - Follow up/Referral - Patient Discharge Instructions - Post Discharge Activity
[2019-08-22] MEDS ORDERED: SODIUM CHLORIDE 1,000 ML IV SCH (02:15)
[2019-08-22 02:56] LABS: VENOUS PC02 28.1 mmHg (38-52); VENOUS PH 7.59 (7.31-7.41)
[2019-08-22] MEDS ORDERED: MAGNESIUM SULF 50% (8.12 MEQ/2 ML-1 GM VIAL) IVPB ONE ×2 (03:18→05:00)
[2019-08-22 03:45] VITALS: BMI 25.4
[2019-08-22] MEDS: INSULIN SLIDING SCALE (NOVOLOG) 1 VIAL SQ SCH ×4 (06:16→22:23)
[2019-08-22 07:22] LABS: BASO % 0.3 % (0-2.0); HEMATOCRIT 21.6 % (32.4-45.2); LYMPH % 9.9 % (8-40); MCH 24.9 pg (25.7-33.7); MCHC 32.2 g/dl (32.0-36.0); MEAN CELL VOLUME 77.4 fl (80-96); MEAN PLT VOLUME 6.3 fl (7.5-11.1); MONO % 6.3 % (3.8-10.2); NEUT % 83.5 % (42.8-82.8); PLATELET COUNT 379 K/MM3 (134-434); RBC 2.79 M/mm3 (3.60-5.2)
[2019-08-22 08:13] LABS: ALBUMIN 2.1 g/dl (3.4-5.0); BILIRUBIN,TOTAL 0.5 mg/dL (0.2-1); BLOOD UREA NITROGEN 17.9 mg/dL (7-18); CREATININE 0.9 mg/dL (0.55-1.3); MAGNESIUM 2.5 mg/dL (1.8-2.4); PHOSPHOROUS 1.8 mg/dL (2.5-4.9); POTASSIUM 3.1 mmol/L (3.5-5.1); TOT PROT 5.6 g/dl (6.4-8.2)
[2019-08-22 08:58] LABS: CALCIUM 6.9 mg/dL (8.5-10.1)
--- NOTE | 2019-08-22 09:04 | PN ---
Teaching Attending Note Name of Resident: Deidre Gill ATTENDING PHYSICIAN STATEMENT I saw and evaluated the patient. I reviewed the resident's note and discussed the case with the resident. I agree with the resident's findings and plan as documented. SUBJECTIVE: Seen and examined; please see resident note for further historical information. I personally verified all figueroa historical information and exam findings. Personally interpreted all imaging and diagnostics and reviewed appropriate consults. I reviewed all labs and vital signs as per resident note and EMR as documented. I agree with the above assessment and plan unless supplemented by myself in the follow No other issues noted, will DC telemetry when repeat electrolytes are back provided she has no other compelling indications arise. Pending expert consultation. Appreciate all input from subspecialty sources. Obtaining information from [facility] urology as this is where she had the procedure performed 10 item review of systems was completed and is negative aside from history of present illness OBJECTIVE: VS, labs, imaging reviewed NAD, AAO, resting comfortably in bed. RRR s1/2 no mgr Normal muscle tone, moves all 5 extremities with normal apparent strength Neck is supple, trachea midline, no milton LN Lungs CTAB with sym expansion NT ND +BS no milton organomegaly CN2-12 wnl; no FND NC AT EOMI PERRLA Normal mood, appropriate behavior, euthymic affect No skin breakdown or rashes noted ASSESSMENT AND PLAN: History of infected kidney stone with ESBL positive organism patient with a history of ESBL positive cultures who is status post renal stone removal presents with sepsis. She is on antibiotics with ID and urology consultation. Repleting electrolytes, monitoring on telemetry due to severe electrolyte imbalances. Problems include: Infected renal stone-Status post removal postoperative day 1 Leukocytosis; with neutrophilia on differential. Likely secondary to urinary tract infection. Microcytic anemia, iron deficiency anemia noted with iron of 7 TIBC of 200 iron saturation of 3. B12 and folate are within normal limits Diabetes mellitus, A1c 6.6 Hypophosphatemia, 1.8 this morning. We will replete and recheck. Hypomagnesemia 0.9 on admission, 2.5 this morning. Will recheck and continue to trend. Improved. History of hypertension Full code
[2019-08-22] MEDS ORDERED: POTASSIUM CHLORIDE TABS 20 MEQ TABLET.ER (FP) PO ONE ×2 (09:30→15:00)
[2019-08-22 09:50] LABS: INR 1.46 (0.83-1.09); PROTHROMBIN TIME (PATIENT) 17.3 SEC (9.7-13.0)
[2019-08-22] MEDS ORDERED: ERTAPENEM SODIUM 1 GM in SODIUM CHLORIDE 50 ML IVPB SCH (10:00)
[2019-08-22] MEDS ORDERED: ENOXAPARIN NA (PORCINE) 40 MG/0.4 ML DISP.SYRIN SQ SCH (10:00)
[2019-08-22] MEDS ORDERED: PT OWN MED DRAWER 7, Y5N ONE (10:01)
[2019-08-22] MEDS: ACETAMINOPHEN 325 MG TABLET (FP) PO PRN ×2 (10:20→17:14)
[2019-08-22] MEDS: PANTOPRAZOLE SODIUM 40 MG VIAL IVPUSH SCH (10:21)
[2019-08-22] MEDS: NAPH,MB-DB/K PH,MBDB POWDER PACKET PO SCH ×2 (10:22→22:10)
[2019-08-22 11:30] LABS: RETICULOCYTES 2.17 % (0.5-1.5)
[2019-08-22] MEDS ORDERED: LACTATED RINGERS SOLUTION 1,000 ML/1,000 ML INFUS.BAG IV SCH (11:45)
[2019-08-22] MEDS: LACTATED RINGERS SOLUTION 1,000 ML/1,000 ML INFUS.BAG IV SCH (11:48)
--- NOTE | 2019-08-22 11:48 | EKG ---
Test Reason : Blood Pressure : / mmHG Vent. Rate : 108 BPM Atrial Rate : 108 BPM P-R Int : 146 ms QRS Dur : 096 ms QT Int : 366 ms P-R-T Axes : 023 002 020 degrees QTc Int : 490 ms SINUS TACHYCARDIA OTHERWISE NORMAL ECG WHEN COMPARED WITH ECG OF 21-AUG-2019 19:38, ABERRANT CONDUCTION IS NO LONGER PRESENT Confirmed by DHIRAJ CHAIDEZ MD ([id number]) on 08/22/2019 11:48:07 AM Referred By: ROGER NAIK DROINE Confirmed By:DHIRAJ CHAIDEZ MD
--- NOTE | 2019-08-22 11:50 | EKG ---
Test Reason : Blood Pressure : / mmHG Vent. Rate : 112 BPM Atrial Rate : 112 BPM P-R Int : 148 ms QRS Dur : 100 ms QT Int : 392 ms P-R-T Axes : 009 -07 017 degrees QTc Int : 535 ms SINUS TACHYCARDIA WITH PREMATURE ATRIAL COMPLEXES WITH ABERRANT CONDUCTION LEFT VENTRICULAR HYPERTROPHY WITH REPOLARIZATION ABNORMALITY PROLONGED QT ABNORMAL ECG WHEN COMPARED WITH ECG OF 20-JUN-2019 07:57, ABERRANT CONDUCTION IS NOW PRESENT T WAVE AMPLITUDE HAS DECREASED IN ANTERIOR LEADS Confirmed by DHIRAJ CHAIDEZ MD ([id number]) on 08/22/2019 11:50:16 AM Referred By: Confirmed By:DHIRAJ CHAIDEZ MD
[2019-08-22 12:24] LABS: BASO % 0.3 % (0-2.0); EOS % 0.1 % (0-4.5); HEMATOCRIT 20.5 % (32.4-45.2); LYMPH % 11.2 % (8-40); MCH 24.8 pg (25.7-33.7); MEAN CELL VOLUME 77.6 fl (80-96); MEAN PLT VOLUME 6.4 fl (7.5-11.1); MONO % 7.2 % (3.8-10.2); NEUT % 81.2 % (42.8-82.8); PLATELET COUNT 354 K/MM3 (134-434); RBC 2.64 M/mm3 (3.60-5.2); RDW 20.1 % (11.6-15.6); WHITE BLOOD COUNT 11.8 K/mm3 (4.0-10.0)
[2019-08-22 12:26] LABS: HEMOGLOBIN 6.5 GM/dL (10.7-15.3)
--- NOTE | 2019-08-22 17:05 | PN ---
Progress Note (short form) - Note Progress Note: ID CONSULT DICTATED GRAM NEGATIVE BACTEREMIA/ SEPSIS SECONDARY TO SOURCE HX ESBL PENDING C/S EMPIRIC MEROPENEM CONTACT PRECAUTIONS
[2019-08-22] MEDS ORDERED: MEROPENEM 1 GM VIAL (RESTRICTED TO ID) IVPB ONE (17:11)
[2019-08-22] MEDS ORDERED: DEXTROSE 5%-WATER 100 ML IVPB ONE (17:11)
[2019-08-22] MEDS: MEROPENEM 1 GM in DEXTROSE 5%-WATER 100 ML IVPB SCH (17:23)
--- NOTE | 2019-08-22 18:14 | PN ---
Physical Exam: SUBJECTIVE: Patient seen and examined. Patient complains of nausea and small amount of vomiting. Denies chest pain, abd pain, SOB. Spoke with family and updated them on patient's condition and plan. Spoke with Dr. Bustamante who states that he will come and see patient today after his clinic hours. OBJECTIVE: Vital Signs Period Temp Pulse Resp BP Sys/Ho Pulse Ox Last 24 Hr 98.3 F-101.1 F 87-118 17-22 104-134/45-62 93-100 GENERAL: The patient is awake, alert, and fully oriented, in no acute distress. HEAD: Normal with no signs of trauma. EYES: PERRL, EOMI ENT: dry mucous membranes NECK: Trachea midline, full range of motion, supple. LUNGS: Breath sounds equal, clear to auscultation bilaterally, no wheezes, no crackles, no accessory muscle use. HEART: Tachycardic ABDOMEN: Soft, nontender, nondistended, normoactive bowel sounds, no guarding, no rebound RECTAL: no hemorrhoids noted, no milton blood EXTREMITIES: 2+ pulses, warm, well-perfused, no edema. NEUROLOGICAL: Normal speech, gait not observed. PSYCH: Normal mood, normal affect. SKIN: Warm, dry, normal turgor Laboratory Results - last 24 hr 08/21/19 08/21/19 08/21/19 20:30 20:30 22:00 WBC 17.8 H RBC 3.22 L Hgb 7.9 L Hct 25.1 L MCV 78.0 L MCH 24.4 L MCHC 31.3 L RDW 20.0 H Plt Count 448 H D MPV 6.5 L D Absolute Neuts (auto) 15.3 H Neutrophils % 86.1 H D Lymphocytes % 8.0 D Monocytes % 5.7 Eosinophils % 0.0 D Basophils % 0.2 Nucleated RBC % 0 Retic Count PT with INR INR VBG pH POC VBG pCO2 POC VBG pO2 VBG HCO3 VBG O2 Sat (Otis) VBG Base Excess Sodium 135 L Potassium 2.4 L* Chloride 93 L Carbon Dioxide 32 Anion Gap 9 BUN 18.0 Creatinine 1.2 Est GFR (CKD-EPI)AfAm 51.56 Est GFR (CKD-EPI)NonAf 44.48 POC Glucometer Random Glucose 214 H Hemoglobin A1c % Lactic Acid 0.9 Calcium 7.2 L Phosphorus Magnesium Iron TIBC Iron Saturation Unsaturated IBC Ferritin Total Bilirubin 0.6 AST 14 L ALT 18 Alkaline Phosphatase 82 Creatine Kinase 79 Troponin I < 0.02 Total Protein 6.7 Albumin 2.5 L Vitamin B12 Serum Folate Urine Color Urine Appearance Urine pH Ur Specific Woodson Urine Protein Urine Glucose (UA) Urine Ketones Urine Blood Urine Nitrite Urine Bilirubin Urine Urobilinogen Ur Leukocyte Esterase Urine WBC (Auto) Urine RBC (Auto) Urine Casts (Auto) U Pathogenic Cast Auto U Epithel Cells (Auto) Urine Bacteria (Auto) Stool Occult Blood Blood Type Antibody Screen Crossmatch 08/22/19 08/22/19 08/22/19 00:52 02:37 02:37 WBC RBC Hgb Hct MCV MCH MCHC RDW Plt Count MPV Absolute Neuts (auto) Neutrophils % Lymphocytes % Monocytes % Eosinophils % Basophils % Nucleated RBC % Retic Count PT with INR INR VBG pH 7.59 H POC VBG pCO2 28.1 L POC VBG pO2 176 H VBG HCO3 27.0 VBG O2 Sat (Otis) 99.5 H VBG Base Excess 5.0 H Sodium Potassium Chloride Carbon Dioxide Anion Gap BUN Creatinine Est GFR (CKD-EPI)AfAm Est GFR (CKD-EPI)NonAf POC Glucometer Random Glucose Hemoglobin A1c % Lactic Acid Calcium Phosphorus Magnesium 0.9 L Iron TIBC Iron Saturation Unsaturated IBC Ferritin Total Bilirubin AST ALT Alkaline Phosphatase Creatine Kinase Troponin I Total Protein Albumin Vitamin B12 Serum Folate Urine Color Yellow Urine Appearance Cloudy Urine pH 5.0 Ur Specific Woodson 1.014 Urine Protein 2+ H Urine Glucose (UA) Negative Urine Ketones Trace H Urine Blood 2+ H Urine Nitrite Positive H Urine Bilirubin Negative Urine Urobilinogen 0.2 Ur Leukocyte Esterase 2+ H Urine WBC (Auto) 118 Urine RBC (Auto) 17 Urine Casts (Auto) 26 U Pathogenic Cast Auto Seen U Epithel Cells (Auto) 1.5 Urine Bacteria (Auto) 1005.9 Stool Occult Blood Blood Type Antibody Screen Crossmatch 08/22/19 08/22/19 08/22/19 06:15 06:37 06:37 WBC 13.0 H RBC 2.79 L Hgb 7.0 L Hct 21.6 L MCV 77.4 L MCH 24.9 L MCHC 32.2 RDW 20.0 H Plt Count 379 MPV 6.3 L Absolute Neuts (auto) 10.9 H Neutrophils % 83.5 H Lymphocytes % 9.9 D Monocytes % 6.3 Eosinophils % 0.0 Basophils % 0.3 Nucleated RBC % 0 Retic Count 2.17 H PT with INR INR VBG pH POC VBG pCO2 POC VBG pO2 VBG HCO3 VBG O2 Sat (Otis) VBG Base Excess Sodium 138 Potassium 3.1 L Chloride 101 Carbon Dioxide 28 Anion Gap 10 BUN 17.9 Creatinine 0.9 Est GFR (CKD-EPI)AfAm 73.00 Est GFR (CKD-EPI)NonAf 62.99 POC Glucometer 165 Random Glucose 174 H Hemoglobin A1c % Lactic Acid Calcium 6.9 L* Phosphorus 1.8 L Magnesium Iron TIBC Iron Saturation Unsaturated IBC Ferritin Total Bilirubin 0.5 AST 12 L ALT 13 Alkaline Phosphatase 71 Creatine Kinase Troponin I Total Protein 5.6 L Albumin 2.1 L Vitamin B12 Serum Folate Urine Color Urine Appearance Urine pH Ur Specific Woodson Urine Protein Urine Glucose (UA) Urine Ketones Urine Blood Urine Nitrite Urine Bilirubin Urine Urobilinogen Ur Leukocyte Esterase Urine WBC (Auto) Urine RBC (Auto) Urine Casts (Auto) U Pathogenic Cast Auto U Epithel Cells (Auto) Urine Bacteria (Auto) Stool Occult Blood Blood Type Antibody Screen Crossmatch 08/22/19 08/22/19 08/22/19 06:37 06:37 06:37 WBC RBC Hgb Hct MCV MCH MCHC RDW Plt Count MPV Absolute Neuts (auto) Neutrophils % Lymphocytes % Monocytes % Eosinophils % Basophils % Nucleated RBC % Retic Count PT with INR INR VBG pH POC VBG pCO2 POC VBG pO2 VBG HCO3 VBG O2 Sat (Otis) VBG Base Excess Sodium Potassium Chloride Carbon Dioxide Anion Gap BUN Creatinine Est GFR (CKD-EPI)AfAm Est GFR (CKD-EPI)NonAf POC Glucometer Random Glucose Hemoglobin A1c % 6.6 H Lactic Acid Calcium Phosphorus Magnesium 2.5 H Iron 7 L TIBC 200 L Iron Saturation 3 L Unsaturated IBC 193 L Ferritin 55.5 Total Bilirubin AST ALT Alkaline Phosphatase Creatine Kinase Troponin I Total Protein Albumin Vitamin B12 1256 H Serum Folate 10 Urine Color Urine Appearance Urine pH Ur Specific Woodson Urine Protein Urine Glucose (UA) Urine Ketones Urine Blood Urine Nitrite Urine Bilirubin Urine Urobilinogen Ur Leukocyte Esterase Urine WBC (Auto) Urine RBC (Auto) Urine Casts (Auto) U Pathogenic Cast Auto U Epithel Cells (Auto) Urine Bacteria (Auto) Stool Occult Blood Blood Type A POSITIVE Antibody Screen Negative Crossmatch See Detail 08/22/19 08/22/19 08/22/19 08:15 09:10 09:10 WBC RBC Hgb Hct MCV MCH MCHC RDW Plt Count MPV Absolute Neuts (auto) Neutrophils % Lymphocytes % Monocytes % Eosinophils % Basophils % Nucleated RBC % Retic Count PT with INR 17.30 H INR 1.46 H VBG pH POC VBG pCO2 POC VBG pO2 VBG HCO3 VBG O2 Sat (Otis) VBG Base Excess Sodium Potassium Chloride Carbon Dioxide Anion Gap BUN Creatinine Est GFR (CKD-EPI)AfAm Est GFR (CKD-EPI)NonAf POC Glucometer Random Glucose Hemoglobin A1c % Lactic Acid Calcium Phosphorus Magnesium Iron TIBC Iron Saturation Unsaturated IBC Ferritin Total Bilirubin AST ALT Alkaline Phosphatase Creatine Kinase Troponin I Total Protein Albumin Vitamin B12 Serum Folate Urine Color Urine Appearance Urine pH Ur Specific Woodson Urine Protein Urine Glucose (UA) Urine Ketones Urine Blood Urine Nitrite Urine Bilirubin Urine Urobilinogen Ur Leukocyte Esterase Urine WBC (Auto) Urine RBC (Auto) Urine Casts (Auto) U Pathogenic Cast Auto U Epithel Cells (Auto) Urine Bacteria (Auto) Stool Occult Blood Negative Blood Type A POSITIVE Antibody Screen Crossmatch 08/22/19 08/22/19 08/22/19 11:06 12:00 16:44 WBC 11.8 H RBC 2.64 L Hgb 6.5 L* Hct 20.5 L MCV 77.6 L MCH 24.8 L MCHC 32.0 RDW 20.1 H Plt Count 354 MPV 6.4 L Absolute Neuts (auto) 9.6 H Neutrophils % 81.2 Lymphocytes % 11.2 Monocytes % 7.2 Eosinophils % 0.1 D Basophils % 0.3 Nucleated RBC % 0 Retic Count PT with INR INR VBG pH POC VBG pCO2 POC VBG pO2 VBG HCO3 VBG O2 Sat (Otis) VBG Base Excess Sodium Potassium Chloride Carbon Dioxide Anion Gap BUN Creatinine Est GFR (CKD-EPI)AfAm Est GFR (CKD-EPI)NonAf POC Glucometer 189 136 Random Glucose Hemoglobin A1c % Lactic Acid Calcium Phosphorus Magnesium Iron TIBC Iron Saturation Unsaturated IBC Ferritin Total Bilirubin AST ALT Alkaline Phosphatase Creatine Kinase Troponin I Total Protein Albumin Vitamin B12 Serum Folate Urine Color Urine Appearance Urine pH Ur Specific Woodson Urine Protein Urine Glucose (UA) Urine Ketones Urine Blood Urine Nitrite Urine Bilirubin Urine Urobilinogen Ur Leukocyte Esterase Urine WBC (Auto) Urine RBC (Auto) Urine Casts (Auto) U Pathogenic Cast Auto U Epithel Cells (Auto) Urine Bacteria (Auto) Stool Occult Blood Blood Type Antibody Screen Crossmatch Active Medications Generic Name Dose Route Start Last Admin Trade Name Maxx PRN Reason Stop Dose Admin Acetaminophen 650 mg 08/22/19 02:04 08/22/19 17:14 Tylenol - PO 650 mg Q6H PRN Administration PAIN LEVEL 6-10 Lactated Ringer's 1,000 ml in 1,000 mls @ 100 mls/hr 08/22/19 11:45 08/22/19 11:48 Lactated Ringers Solution IV 100 mls/hr ASDIR CHIQUI Administration Meropenem 1 gm/ Dextrose 100 mls @ 200 mls/hr 08/22/19 18:00 08/22/19 17:23 IVPB 200 mls/hr Q8H-IV CHIQUI Administration Insulin Aspart 1 vial 08/22/19 07:00 08/22/19 17:24 Novolog Vial Sliding Scale - SQ Not Given ACHS [facility] Protocol Pantoprazole Sodium 40 mg 08/22/19 10:00 08/22/19 10:21 Protonix Iv IVPUSH 40 mg BID CHIQUI Administration Potassium Phos/Sodium Phos 1 packet 08/22/19 10:00 08/22/19 10:22 Phos-Nak Packet - PO 08/22/19 22:01 1 packet BID CHIQUI Administration ASSESSMENT/PLAN: 73 y/o/f with a PMHx of anemia, DM, HTN, HLD, admitted in June for sepsis secondary to infected kidney stone (ESBL +) s/p left kidney stone removal yesterday and ureteral stent placement presenting to the ED due to fever, worsening nausea/ vomiting, generalized weakness. #+UA with poss post procedural bacteremia due to manipulation - Leukocytosis, now afebrile. continue to monitor - Stone removal and uteral stent placement over the last week. - Ertapenem - per Dr. Bustamante, cx sensitive to Ertapenem - follow blood and urine cx - Urology consulted, Dr. Bustamante - ID consulted, Dr. Honeycutt - Abdomen and pelvis CT without contrast - left nephrolithasis with mild to moderate hydronephrosis without obvious obstruction. air isalso noted within the left urinary system which may be related to recent procedure or possibly infectious process. - QTc 535 - Isolation precautions for +ESBL history #Electrolyte abnormalities - K 2.4, mag 0.9, Na 135, Phos 1.8 on admission - EKG with prolongued QTC - electrolytes repleted. Continue to monitor with BMP #Anemia with microcytosis no hx of GI visit or colonoscopy - Stool occult test negative - Iron, TIBC, Iron saturation, Unsaturated IBC low - B12 elevated - retic count elevated #DM with elevated BG on admission - ISS - BGMs #HTN - normotensive, will hold home anti-HTN meds until appropriate to restart #HLD - Atorvastatin 10mg HS #Hypoalbuminemia - likely 2/2 malnutrition #Prophylaxis - SCDs #FEN - LR @100 mls/hr - NPO in anticipation of possible intervention by Dr. Bustamante, can resume diet if no intervention needed #Disposition - continue to monitor on tele Visit type - Emergency Visit Emergency Visit: Yes ED Registration Date: 08/21/19 Care time: The patient presented to the Emergency Department on the above date and was hospitalized for further evaluation of their emergent condition. - New Patient This patient is new to me today: Yes Date on this admission: 08/22/19 - Critical Care Critical Care patient: No ATTENDING PHYSICIAN STATEMENT I saw and evaluated the patient. I reviewed the resident's note and discussed the case with the resident. I agree with the resident's findings and plan as documented. SUBJECTIVE: OBJECTIVE: ASSESSMENT AND PLAN:
--- NOTE | 2019-08-22 18:15 | CONS ---
DATE OF CONSULTATION: 08/21/2019 INFECTIOUS DISEASE CONSULTATION HISTORY OF PRESENT ILLNESS: The patient is a 73-year-old female who is evaluated for gram-negative sepsis. History was obtained primarily from the chart. She was brought to the emergency room on August 21, 2019, with complaints of protracted nausea, vomiting, generalized weakness. The patient has a history of obstructive uropathy and had an indwelling ureteral stent. According to the notes she had undergone stone removal on the day prior to admission at [facility]. Postoperatively she developed fever. Additional details are not available. The stent which was present in the left ureter has since been removed or fell out. She presented to the emergency room where she was noted to have fever of 101.1, had a white blood cell count of 17,000. Blood cultures were obtained and are positive for gram-negative rods. She has had a history of ESBL in the blood and urine dating back to June 2019. At the present time she is awake and alert, she has no complaints of pain. She complains of nausea, no diarrhea, no complaints of abdominal pain. She denies any flank pain or suprapubic pain. No dysuria or hematuria. PAST MEDICAL HISTORY: Positive for nephrolithiasis status post recent urologic procedure. Hypertension, diabetes mellitus, hyperlipidemia. ALLERGIES: ZITHROMAX, HYDROCHLOROTHIAZIDE, HYDROCODONE, LISINOPRIL. MEDICATION: Include Tylenol, ertapenem, insulin. SOCIAL HISTORY: She resides in the community. She is a nonsmoker, nondrinker. Last Cobb's admission was in June 2019. LABORATORY DATA: White count on admission 17.8, presently 11.8, hematocrit 20.5, platelets 254, creatinine 0.9. Chest x-ray negative. Urinalysis 118 white cells. Blood cultures gram negative rods. PHYSICAL EXAMINATION: General: On exam, she is awake and alert, she is not acutely toxic appearing. Supine in bed. Vital signs: Temperature 99.4, T-max 101.1, blood pressure 118/62, pulse 112 regular, respirations 22 per minute. HEENT: Sclerae anicteric. Cardiovascular: Heart sounds S1, S2. Lungs: Clear. Abdomen: Soft, no tenderness elicited, no suprapubic or flank tenderness. Extremities: 1+ edema. IMPRESSION: 1. Gram-negative bacteremia/sepsis secondary to genitourinary source. 2. Urinary tract infection. 3. History of obstructive uropathy status post ureteral stent. 4. History of extended-spectrum beta-lactamases in the blood and urine. Pending sepsis workup. Empiric antibiotic coverage for possible recurrent ESBL sepsis with meropenem 1 g IV piggyback every 8 hours. Await final culture results. Contact precautions. Thank you for the kind referral. TACO CHEN M.D. [id number]
--- NOTE | 2019-08-22 20:00 | CONS ---
DATE OF CONSULTATION: 08/22/2019 REASON FOR CONSULTATION: Urinary tract infection. HISTORY OF PRESENT ILLNESS: The patient is a 73-year-old female who 2 days earlier had undergone a left-sided ureteroscopy and stone fragmentation with laser. The procedure itself was fairly uneventful. However, she was left with a stent and on the day following the procedure apparently that morning when she was urinating the stent came out. The patient was in fact spoken to later in the day yesterday and seemed to be okay but apparently last night began vomiting uncontrollably and came to the emergency room here at [facility]. At the time of admission she was running a fever of about 101, was not having any particular pain, but was found to have a white count of 18,000. It should be noted that the urine that was sent off from the OR came back early this morning growing a resistant E coli. When I received that information I called the hospital, spoke to one of the physicians and indicated that patient had been placed on ertapenem when she was admitted and in fact the E coli that was growing from the OR came back sensitive to it. On admission she was also noted to have a slightly elevated creatinine of 1.2. Since admission her white count has come down, most recently to just over 11,000 and her creatinine has come down to her baseline which is 0.9. The nurses report that she has not vomited since her admission. I would suggest checking with the Infectious Disease service to see how long they felt she needed be maintained on the parenteral antibiotics. The E coli from the operating room was in fact sensitive to Macrobid, tetracycline and Bactrim in addition to ertapenem, meropenem and amikacin. As the last three are only parenteral, I would think that switching her to an oral antibiotic and maintaining her on that for at least 2 weeks would be appropriate. However, at what point she should be switched from the parenteral to the oral medication I think would be best addressed with an ID consult. I would also point out that her hematocrit on admission was 25 and hence has dropped to 20. There was no significant bleeding during the procedure. There has been no report of bleeding since that time. I do not know what her baseline hematocrit and hemoglobin numbers are. Some of the current drop may be related to rehydration and to our current blood cultures and shaking her various chemistries and blood count. To what extent this drop in hematocrit needs to be further investigated I cannot say, but would defer to the medical service. I would strongly recommend starting her on p.o. iron if not already done so. If there are any questions, please feel free to contact me directly on my cellphone, . MD JEREMY SWAIN/[id number]
[2019-08-22 22:05] LABS: HEMATOCRIT 23.5 % (32.4-45.2); HEMOGLOBIN 7.8 GM/dL (10.7-15.3); MCH 25.9 pg (25.7-33.7); MCHC 33.2 g/dl (32.0-36.0); MEAN CELL VOLUME 77.9 fl (80-96); MEAN PLT VOLUME 6.5 fl (7.5-11.1); PLATELET COUNT 313 K/MM3 (134-434); RBC 3.01 M/mm3 (3.60-5.2); WHITE BLOOD COUNT 9.1 K/mm3 (4.0-10.0)
[2019-08-22] MEDS: ATORVASTATIN CA 10 MG TABLET (FP) PO SCH (22:10)
[2019-08-22 22:20] LABS: BLOOD UREA NITROGEN 14.8 mg/dL (7-18); CREATININE 0.8 mg/dL (0.55-1.3); MAGNESIUM 2.4 mg/dL (1.8-2.4); POTASSIUM 3.7 mmol/L (3.5-5.1)
[2019-08-22 22:22] LABS: CALCIUM 6.7 mg/dL (8.5-10.1)
[2019-08-23] MEDS: PANTOPRAZOLE SODIUM 40 MG VIAL IVPUSH SCH ×2 (01:03→10:25)
[2019-08-23] MEDS ORDERED: MEROPENEM 1 GM VIAL (RESTRICTED TO ID) IVPB ONE ×3 (01:56→17:36)
[2019-08-23] MEDS ORDERED: DEXTROSE 5%-WATER 100 ML IVPB ONE ×3 (01:57→17:36)
[2019-08-23] MEDS: MEROPENEM 1 GM in DEXTROSE 5%-WATER 100 ML IVPB SCH ×3 (02:11→17:37)
[2019-08-23] MEDS: ACETAMINOPHEN 325 MG TABLET (FP) PO PRN ×2 (02:11→13:50)
[2019-08-23 02:42] LABS: HYALINE CASTS 9 /lpf (0-8); URINE APPEARANCE CLOUDY; URINE BACTERIA 3.8 /hpf (NEGATIVE); URINE BILIRUBIN NEGATIVE (NEGATIVE); URINE COLOR YELLOW; URINE GLUCOSE (UA) NEGATIVE (NEGATIVE); URINE KETONE NEGATIVE (NEGATIVE); URINE LEUK ESTERASE TRACE (NEGATIVE); URINE NITRITE NEGATIVE (NEGATIVE); URINE PROTEIN 1+ (NEGATIVE); URINE UROBILINOGEN 0.2 mg/dL (0.2-1.0); URINE WBC 71 /hpf (0-5)
[2019-08-23 06:16] LABS: YEAST NONE SEEN (NEGATIVE)
[2019-08-23 06:17] LABS: URINE RBC 30.2 /hpf (0-4)
[2019-08-23] MEDS ORDERED: ATENOLOL 50 MG TABLET (FP) PO SCH ×2 (07:27→10:00)
[2019-08-23 07:29] LABS: BASO % 0.5 % (0-2.0); EOS % 0.3 % (0-4.5); HEMATOCRIT 27.4 % (32.4-45.2); HEMOGLOBIN 9.2 GM/dL (10.7-15.3); LYMPH % 14.2 % (8-40); MCH 26.7 pg (25.7-33.7); MCHC 33.8 g/dl (32.0-36.0); MEAN CELL VOLUME 79.1 fl (80-96); MEAN PLT VOLUME 6.6 fl (7.5-11.1); MONO % 6.1 % (3.8-10.2); NEUT % 78.9 % (42.8-82.8); PLATELET COUNT 291 K/MM3 (134-434); RBC 3.46 M/mm3 (3.60-5.2); RDW 17.9 % (11.6-15.6); WHITE BLOOD COUNT 8.8 K/mm3 (4.0-10.0)
[2019-08-23] MEDS ORDERED: ADENOSINE 6 MG/2 ML VIAL IVPUSH ONE ×2 (07:33)
--- NOTE | 2019-08-23 07:39 | PN ---
Physical Exam: SUBJECTIVE: Patient seen and examined. Rapid response called multiple times on patient during morning. Patient remained asymptomatic despite tachycardia to the 120s. denied chest pain, SOB, abd pain, dizziness. Only complained of nausea overnight. OBJECTIVE: Vital Signs Period Temp Pulse Resp BP Sys/Ho Pulse Ox Last 24 Hr 98.2 F-102.7 F 88-118 16-22 105-140/45-94 93-93 GENERAL: The patient is awake, alert, and fully oriented, in no acute distress. HEAD: Normal with no signs of trauma. EYES: PERRL, EOMI ENT: dry mucous membranes NECK: Trachea midline, full range of motion, supple. LUNGS: Breath sounds equal, clear to auscultation bilaterally, no wheezes, no crackles, no accessory muscle use. HEART: Tachycardic ABDOMEN: Soft, nontender, nondistended, normoactive bowel sounds, no guarding, no rebound RECTAL: no hemorrhoids noted, no milton blood EXTREMITIES: 2+ pulses, warm, well-perfused, no edema. NEUROLOGICAL: Normal speech, gait not observed. PSYCH: Normal mood, normal affect. SKIN: Warm, dry, normal turgor Laboratory Results - last 24 hr 08/22/19 08/22/19 08/22/19 06:37 06:37 06:37 WBC RBC Hgb Hct MCV MCH MCHC RDW Plt Count MPV Absolute Neuts (auto) Neutrophils % Lymphocytes % Monocytes % Eosinophils % Basophils % Nucleated RBC % Retic Count 2.17 H PT with INR INR Sodium 138 Potassium 3.1 L Chloride 101 Carbon Dioxide 28 Anion Gap 10 BUN 17.9 Creatinine 0.9 Est GFR (CKD-EPI)AfAm 73.00 Est GFR (CKD-EPI)NonAf 62.99 POC Glucometer Random Glucose 174 H Hemoglobin A1c % 6.6 H Calcium 6.9 L* Phosphorus 1.8 L Magnesium Iron TIBC Iron Saturation Unsaturated IBC Ferritin Total Bilirubin 0.5 AST 12 L ALT 13 Alkaline Phosphatase 71 Total Protein 5.6 L Albumin 2.1 L Vitamin B12 Serum Folate Urine Color Urine Appearance Urine pH Ur Specific [place] Urine Protein Urine Glucose (UA) Urine Ketones Urine Blood Urine Nitrite Urine Bilirubin Urine Urobilinogen Ur Leukocyte Esterase Urine WBC (Auto) Urine RBC (Auto) Urine Casts (Auto) U Pathogenic Cast Auto U Epithel Cells (Auto) Urine Bacteria (Auto) Urine Yeast (Auto) Stool Occult Blood Blood Type Antibody Screen Crossmatch Transfuse React Work-up 08/22/19 08/22/19 08/22/19 06:37 06:37 08:15 WBC RBC Hgb Hct MCV MCH MCHC RDW Plt Count MPV Absolute Neuts (auto) Neutrophils % Lymphocytes % Monocytes % Eosinophils % Basophils % Nucleated RBC % Retic Count PT with INR INR Sodium Potassium Chloride Carbon Dioxide Anion Gap BUN Creatinine Est GFR (CKD-EPI)AfAm Est GFR (CKD-EPI)NonAf POC Glucometer Random Glucose Hemoglobin A1c % Calcium Phosphorus Magnesium 2.5 H Iron 7 L TIBC 200 L Iron Saturation 3 L Unsaturated IBC 193 L Ferritin 55.5 Total Bilirubin AST ALT Alkaline Phosphatase Total Protein Albumin Vitamin B12 1256 H Serum Folate 10 Urine Color Urine Appearance Urine pH Ur Specific [place] Urine Protein Urine Glucose (UA) Urine Ketones Urine Blood Urine Nitrite Urine Bilirubin Urine Urobilinogen Ur Leukocyte Esterase Urine WBC (Auto) Urine RBC (Auto) Urine Casts (Auto) U Pathogenic Cast Auto U Epithel Cells (Auto) Urine Bacteria (Auto) Urine Yeast (Auto) Stool Occult Blood Negative Blood Type A POSITIVE Antibody Screen Negative Crossmatch See Detail Transfuse React Work-up 08/22/19 08/22/19 08/22/19 09:10 09:10 11:06 WBC RBC Hgb Hct MCV MCH MCHC RDW Plt Count MPV Absolute Neuts (auto) Neutrophils % Lymphocytes % Monocytes % Eosinophils % Basophils % Nucleated RBC % Retic Count PT with INR 17.30 H INR 1.46 H Sodium Potassium Chloride Carbon Dioxide Anion Gap BUN Creatinine Est GFR (CKD-EPI)AfAm Est GFR (CKD-EPI)NonAf POC Glucometer 189 Random Glucose Hemoglobin A1c % Calcium Phosphorus Magnesium Iron TIBC Iron Saturation Unsaturated IBC Ferritin Total Bilirubin AST ALT Alkaline Phosphatase Total Protein Albumin Vitamin B12 Serum Folate Urine Color Urine Appearance Urine pH Ur Specific [place] Urine Protein Urine Glucose (UA) Urine Ketones Urine Blood Urine Nitrite Urine Bilirubin Urine Urobilinogen Ur Leukocyte Esterase Urine WBC (Auto) Urine RBC (Auto) Urine Casts (Auto) U Pathogenic Cast Auto U Epithel Cells (Auto) Urine Bacteria (Auto) Urine Yeast (Auto) Stool Occult Blood Blood Type A POSITIVE Antibody Screen Crossmatch Transfuse React Work-up 08/22/19 08/22/19 08/22/19 12:00 16:44 21:00 WBC 11.8 H RBC 2.64 L Hgb 6.5 L* Hct 20.5 L MCV 77.6 L MCH 24.8 L MCHC 32.0 RDW 20.1 H Plt Count 354 MPV 6.4 L Absolute Neuts (auto) 9.6 H Neutrophils % 81.2 Lymphocytes % 11.2 Monocytes % 7.2 Eosinophils % 0.1 D Basophils % 0.3 Nucleated RBC % 0 Retic Count PT with INR INR Sodium 143 Potassium 3.7 Chloride 108 H Carbon Dioxide 31 Anion Gap 4 L BUN 14.8 Creatinine 0.8 Est GFR (CKD-EPI)AfAm 84.18 Est GFR (CKD-EPI)NonAf 72.63 POC Glucometer 136 Random Glucose 146 H Hemoglobin A1c % Calcium 6.7 L* Phosphorus 2.0 L Magnesium 2.4 Iron TIBC Iron Saturation Unsaturated IBC Ferritin Total Bilirubin AST ALT Alkaline Phosphatase Total Protein Albumin Vitamin B12 Serum Folate Urine Color Urine Appearance Urine pH Ur Specific [place] Urine Protein Urine Glucose (UA) Urine Ketones Urine Blood Urine Nitrite Urine Bilirubin Urine Urobilinogen Ur Leukocyte Esterase Urine WBC (Auto) Urine RBC (Auto) Urine Casts (Auto) U Pathogenic Cast Auto U Epithel Cells (Auto) Urine Bacteria (Auto) Urine Yeast (Auto) Stool Occult Blood Blood Type Antibody Screen Crossmatch Transfuse React Work-up 08/22/19 08/22/19 08/23/19 21:00 22:12 01:45 WBC 9.1 RBC 3.01 L Hgb 7.8 L Hct 23.5 L MCV 77.9 L MCH 25.9 MCHC 33.2 RDW 19.0 H Plt Count 313 MPV 6.5 L Absolute Neuts (auto) Neutrophils % Lymphocytes % Monocytes % Eosinophils % Basophils % Nucleated RBC % Retic Count PT with INR INR Sodium Potassium Chloride Carbon Dioxide Anion Gap BUN Creatinine Est GFR (CKD-EPI)AfAm Est GFR (CKD-EPI)NonAf POC Glucometer 140 Random Glucose Hemoglobin A1c % Calcium Phosphorus Magnesium Iron TIBC Iron Saturation Unsaturated IBC Ferritin Total Bilirubin AST ALT Alkaline Phosphatase Total Protein Albumin Vitamin B12 Serum Folate Urine Color Urine Appearance Urine pH Ur Specific [place] Urine Protein Urine Glucose (UA) Urine Ketones Urine Blood Urine Nitrite Urine Bilirubin Urine Urobilinogen Ur Leukocyte Esterase Urine WBC (Auto) Urine RBC (Auto) Urine Casts (Auto) U Pathogenic Cast Auto U Epithel Cells (Auto) Urine Bacteria (Auto) Urine Yeast (Auto) Stool Occult Blood Blood Type Antibody Screen Crossmatch Transfuse React Work-up See comment 08/23/19 08/23/19 02:08 05:57 WBC RBC Hgb Hct MCV MCH MCHC RDW Plt Count MPV Absolute Neuts (auto) Neutrophils % Lymphocytes % Monocytes % Eosinophils % Basophils % Nucleated RBC % Retic Count PT with INR INR Sodium Potassium Chloride Carbon Dioxide Anion Gap BUN Creatinine Est GFR (CKD-EPI)AfAm Est GFR (CKD-EPI)NonAf POC Glucometer 155 Random Glucose Hemoglobin A1c % Calcium Phosphorus Magnesium Iron TIBC Iron Saturation Unsaturated IBC Ferritin Total Bilirubin AST ALT Alkaline Phosphatase Total Protein Albumin Vitamin B12 Serum Folate Urine Color Yellow Urine Appearance Cloudy Urine pH 5.0 Ur Specific [place] 1.015 Urine Protein 1+ H Urine Glucose (UA) Negative Urine Ketones Negative Urine Blood 2+ H Urine Nitrite Negative Urine Bilirubin Negative Urine Urobilinogen 0.2 Ur Leukocyte Esterase Trace Urine WBC (Auto) 71 Urine RBC (Auto) 30.2 Urine Casts (Auto) 9 U Pathogenic Cast Auto Seen U Epithel Cells (Auto) 3.0 Urine Bacteria (Auto) 3.8 Urine Yeast (Auto) None seen Stool Occult Blood Blood Type Antibody Screen Crossmatch Transfuse React Work-up Active Medications Generic Name Dose Route Start Last Admin Trade Name Freq PRN Reason Stop Dose Admin Acetaminophen 650 mg 08/22/19 02:04 08/23/19 02:11 Tylenol - PO 650 mg Q6H PRN Administration PAIN LEVEL 6-10 Adenosine 6 mg 08/23/19 07:33 Adenocard - IVPUSH 08/23/19 07:34 ONCE ONE Adenosine 12 mg 08/23/19 07:33 Adenocard - IVPUSH 08/23/19 07:34 ONCE ONE Atenolol 50 mg 08/23/19 07:27 Tenormin - PO DAILY CHIQUI Atorvastatin Calcium 10 mg 08/22/19 22:00 08/22/19 22:10 Lipitor - PO 10 mg HS CHIQUI Administration Calcium Carbonate/Cholecalciferol 2 tab 08/22/19 22:55 Os-Neeraj 500+D - PO DAILY CHIQUI Lactated Ringer's 1,000 ml in 1,000 mls @ 100 mls/hr 08/22/19 11:45 08/22/19 11:48 Lactated Ringers Solution IV 100 mls/hr ASDIR CHIQUI Administration Meropenem 1 gm/ Dextrose 100 mls @ 200 mls/hr 08/22/19 18:00 08/23/19 02:11 IVPB 200 mls/hr Q8H-IV CHIQUI Administration Insulin Aspart 1 vial 08/22/19 07:00 08/22/19 22:23 Novolog Vial Sliding Scale - SQ Not Given ACHS [facility] Protocol Pantoprazole Sodium 40 mg 08/22/19 10:00 08/23/19 01:03 Protonix Iv IVPUSH 40 mg BID CHIQUI Administration ASSESSMENT/PLAN: 73 y/o/f with a PMHx of anemia, DM, HTN, HLD, admitted in June for sepsis secondary to infected kidney stone (ESBL +) s/p left kidney stone removal yesterday and ureteral stent placement presenting to the ED due to fever, worsening nausea/ vomiting, generalized weakness. #+UA with poss post procedural bacteremia due to manipulation - Leukocytosis, now afebrile. continue to monitor - Stone removal and uteral stent placement over the last week. - Meropenem started by ID - Blood and urine culture both ESBL positive. repeat urine culture positive for Group D strep or Entero Coccus - Urology consulted, Dr. Bustamante - ID consulted, Dr. Honeycutt - Abdomen and pelvis CT without contrast - left nephrolithasis with mild to moderate hydronephrosis without obvious obstruction. air is also noted within the left urinary system which may be related to recent procedure or possibly infectious process. - QTc 535 - Isolation precautions for +ESBL history #Tachycardia - multiple events of tachycardia today, possibly 2/2 to electrolyte imbalances vs. holding home atenolol due to concern for sepsis - HR controlled with adenosine, lopressor, and cardizem pushes throughout the day - Cardiology consulted - started on Cardizem CD 180 PO - started on Metoprolol ER 100 QD - EP evaluation for possible ablation once stable - May use IV cardizem and Lopressor PRN to break tachycardia #Electrolyte abnormalities - K 2.4, mag 0.9, Na 135, Phos 1.8 on admission - EKG with prolongued QTC - electrolytes repleted. Continue to monitor with BMP #Anemia with microcytosis no hx of GI visit or colonoscopy - Stool occult test negative - Iron, TIBC, Iron saturation, Unsaturated IBC low - B12 elevated - retic count elevated - s/p 2 unit PRBCs, continue to monitor and transfuse as needed - stool occult negative #DM with elevated BG on admission - ISS - BGMs #HTN - started on Cardizem 180 PO daily, Metroprolol 100 QD #HLD - Atorvastatin 10mg HS #Hypoalbuminemia - likely 2/2 malnutrition #Prophylaxis - SCDs #FEN - LR @100 mls/hr - Diabetic/Sodium controlled diet #Disposition - continue to monitor on tele Visit type - Emergency Visit Emergency Visit: Yes ED Registration Date: 08/21/19 Care time: The patient presented to the Emergency Department on the above date and was hospitalized for further evaluation of their emergent condition. - New Patient This patient is new to me today: No - Critical Care Critical Care patient: No ATTENDING PHYSICIAN STATEMENT I saw and evaluated the patient. I reviewed the resident's note and discussed the case with the resident. I agree with the resident's findings and plan as documented. SUBJECTIVE: OBJECTIVE: ASSESSMENT AND PLAN:
--- NOTE | 2019-08-23 07:42 | RAPID ---
Physical Examination Vital Signs: Vital Signs Temperature 102.7 F H 08/23/19 01:00 Pulse Rate 108 H 08/23/19 01:00 Respiratory Rate 20 08/23/19 01:00 Blood Pressure 140/83 08/23/19 01:00 O2 Sat by Pulse Oximetry (%) 93 L 08/22/19 21:00 Rapid response called at 0700 and 0718. Patient tachycardic but asymptomatic. BP stable at 115/60. Adenosine 6mg given on initial rapid response with good effect. Patient stable. Rapid called again with patient tachycardic again and still asymptomatic. New right arm IV placed. 12mg of adenosine given with good effect. Heart rate trended to normal. Patient without complaints. EKG without signs of ischemia. Showing SVT during tachycardic events. Labs were drawn, followed up, lytes repleted, trop negative. Vitals: 137/69 HR 96 SpO2 98% Rapid response called again around 9am. Patient tachycardic again, still asymptomatic. Lopressor 15mg total given with HR trending down to 90s. EKG again without signs of ischemia. Patient feeling better once heart rate normalized. Continue to monitor on tele.
[2019-08-23 08:01] LABS: ALBUMIN 1.9 g/dl (3.4-5.0); BILIRUBIN,TOTAL 1.2 mg/dL (0.2-1); BLOOD UREA NITROGEN 15.2 mg/dL (7-18); CREATININE 0.7 mg/dL (0.55-1.3); MAGNESIUM 2.2 mg/dL (1.8-2.4); PHOSPHOROUS 2.2 mg/dL (2.5-4.9); POTASSIUM 3.4 mmol/L (3.5-5.1); TOT PROT 5.2 g/dl (6.4-8.2)
[2019-08-23] MEDS ORDERED: POTASSIUM CHLORIDE TABS 20 MEQ TABLET.ER (FP) PO ONE ×2 (08:02→15:00)
[2019-08-23] MEDS: INSULIN SLIDING SCALE (NOVOLOG) 1 VIAL SQ SCH ×4 (08:05→22:07)
--- NOTE | 2019-08-23 08:24 | PN ---
Teaching Attending Note Name of Resident: Deidre Gill ATTENDING PHYSICIAN STATEMENT I saw and evaluated the patient. I reviewed the resident's note and discussed the case with the resident. I agree with the resident's findings and plan as documented. SUBJECTIVE: Seen and examined; please see resident note for further historical information. I personally verified all figueroa historical information and exam findings. Personally interpreted all imaging and diagnostics and reviewed appropriate consults. I reviewed all labs and vital signs as per resident note and EMR as documented. I agree with the above assessment and plan unless supplemented by myself in the follow SVT last night with RR; given adenosine and atenolol (was held as was septic as presenting dx). Had a reoccurrence of this event again shortly thereafter, electrolytes were replaced but due to unforeseeable issues the patient did not receive the atenolol or the electrolyte replacement by approximately 1030. At this time, we are alerted that the patient was having another episode of rapid ventricular rate to the 180s. 15 mg of IV metoprolol was pushed and the patient was restarted on their Xarelto and home atenolol and cardiology was consulted. They have underlying fibrillation. Had some palpitations with slight discomfort but no classic cardiac sx and this resolved with IV BB. LVEF wnl on prior study so if needed can do PRN cardizem.Was dcd on this EDIT: Verified all meds. -uncleare why xarelto was entered -Her home CV says she is not on diltiazem and that she had a holter done that was neg. -No clear irregularity after the svt runs 10 item review of systems was completed and is negative aside from history of present illness OBJECTIVE: VS, labs, imaging reviewed NAD, AAO, resting comfortably in bed. RRR s1/2 no mgr Normal muscle tone, moves all 5 extremities with normal apparent strength Neck is supple, trachea midline, no milton LN Lungs CTAB with sym expansion NT ND +BS no milton organomegaly CN2-12 wnl; no FND NC AT EOMI PERRLA Normal mood, appropriate behavior, euthymic affect No skin breakdown or rashes noted ASSESSMENT AND PLAN: Sepsis 2/2 ESBL+ UTI, SVT, elyte abnl Problems include: Sepsis secondary to Infected renal stone-Status post removal postoperative day 2 SVT-Discussed above; FU with CV. Likely due to elytes and missed BB. Resumed home meds. On Xarelto. Leukocytosis; with neutrophilia on differential. Likely secondary to urinary tract infection. Microcytic anemia, iron deficiency anemia noted with iron of 7 TIBC of 200 iron saturation of 3. B12 and folate are within normal limits Diabetes mellitus, A1c 6.6 Hypophosphatemia, 1.8 this morning. We will replete and recheck. Hypomagnesemia 0.9 on admission, 2.5 this morning. Will recheck and continue to trend. Improved. History of hypertension Full code
[2019-08-23] MEDS ORDERED: NAPH,MB-DB/K PH,MBDB POWDER PACKET PO SCH ×2 (08:36→10:00)
[2019-08-23] MEDS ORDERED: CALCIUM CHLORIDE 10% 1 GM/10 ML *VIAL IVPB ONE (08:39)
[2019-08-23] MEDS: KCL 10 MEQ IVPB 10 MEQ/100 ML INFUS.BAG IVPB SCH ×2 (09:25→10:34)
[2019-08-23] MEDS ORDERED: METOPROLOL TARTRATE 5 MG/5 ML VIAL ONE ×3 (09:40→14:57)
[2019-08-23] MEDS ORDERED: CALCIUM 500MG/VIT-D 200 UNITS COMBO TABLET (FP) PO SCH (10:00)
[2019-08-23] MEDS: CALCIUM 500MG/VIT-D 200 UNITS COMBO TABLET (FP) PO SCH (10:25)
[2019-08-23 11:28] LABS: BILIRUBIN,DIRECT 0.4 mg/dL (0.0-0.2)
[2019-08-23] MEDS: LACTATED RINGERS SOLUTION 1,000 ML/1,000 ML INFUS.BAG IV SCH (11:48)
[2019-08-23] MEDS: RIVAROXABAN 15 MG TABLET PO SCH (11:48)
--- NOTE | 2019-08-23 11:54 | EKG ---
Test Reason : Blood Pressure : / mmHG Vent. Rate : 092 BPM Atrial Rate : 092 BPM P-R Int : 136 ms QRS Dur : 092 ms QT Int : 372 ms P-R-T Axes : 024 008 020 degrees QTc Int : 460 ms NORMAL SINUS RHYTHM NORMAL ECG WHEN COMPARED WITH ECG OF 23-AUG-2019 09:47, SINUS RHYTHM HAS REPLACED SUPRAVENTRICULAR TACHYCARDIA VENT. RATE HAS DECREASED BY 83 BPM Reconfirmed by LISETTE SÁNCHEZ, TACO ([id number]), newspaper managing editor JAVI OJEDA ([id number]) on 08/24/2019 10:26:19 AM Referred By: Confirmed By:TACO KNOX MD
--- NOTE | 2019-08-23 11:56 | EKG ---
Test Reason : Blood Pressure : / mmHG Vent. Rate : 175 BPM Atrial Rate : 176 BPM P-R Int : 000 ms QRS Dur : 082 ms QT Int : 280 ms P-R-T Axes : 000 009 018 degrees QTc Int : 477 ms SUPRAVENTRICULAR TACHYCARDIA NONSPECIFIC ST ABNORMALITY ABNORMAL ECG Confirmed by TACO KNOX MD ([id number]) on 08/23/2019 11:55:45 AM Referred By: Confirmed By:TACO KNOX MD
[2019-08-23] MEDS ORDERED: CALCIUM CHLORIDE 1 GM/10 ML *DISP.SYRIN IVPB ONE (13:15)
--- NOTE | 2019-08-23 13:41 | EKG ---
Test Reason : Blood Pressure : / mmHG Vent. Rate : 184 BPM Atrial Rate : 182 BPM P-R Int : 000 ms QRS Dur : 086 ms QT Int : 258 ms P-R-T Axes : 000 003 -06 degrees QTc Int : 451 ms SUPRAVENTRICULAR TACHYCARDIA NONSPECIFIC ST AND T WAVE ABNORMALITY ABNORMAL ECG Confirmed by TACO KNOX MD ([id number]) on 08/23/2019 1:41:08 PM Referred By: Confirmed By:TACO KNOX MD
[2019-08-23 14:27] LABS: BLOOD UREA NITROGEN 12.5 mg/dL (7-18); CALCIUM 7.1 mg/dL (8.5-10.1); CREATININE 0.8 mg/dL (0.55-1.3); MAGNESIUM 1.9 mg/dL (1.8-2.4); PHOSPHOROUS 1.5 mg/dL (2.5-4.9); POTASSIUM 4.5 mmol/L (3.5-5.1)
--- NOTE | 2019-08-23 15:22 | CON.CARD ---
Consult Consult Specialty:: Cardiology - History of Present Illness History of Present Illness: Mary Martínez is a 73yo woman with a PMH of anemia NIDDM, HTN, HLD, prior admission for sepsis secondary to infected kidney stone c/b development of a- fib and SVT, one day s/p left kidney stone removal (exact procedure unknown) and ureteral stent placement who was brought to the ED with multiple complaints including two months of frequent vomiting, generalized weakness, altered mental status, chest pain, and that her ureteral stent "fell out" today. Ms Martínez is speaking only minimally, but her niece is present to provide information. The niece says that the patient has been unable to keep down anything for several months, which they attributed to the kidney stones. However , she had a stent placed in June, and then a procedure to remove the stone yesterday at [facility]. The niece says that the patient had a high fever following her procedure yesterday but was discharged home with a normal temperature. She has continued to feel unwell with increased nausea/vomiting since yesterday. She also complained of chest pain earlier today. The neice also note that the patient has appeared pale and has "not been herself." Reportedly, Ms Martínez is usually very talkative, but she has hardly been saying anyting today. She has also appeared very fatigued. Other than the fever post-procedure yesterday, the patient has had no known recent fevers/chills, change in frequency of bowel movements, urinary symptoms, severe abdominal pain, difficulty breathing, lightheadedness, or diaphoresis. She reports having a daily bowl movement and voids 3-4 times per day. She denies bilious vomiting or hematemesis. She has not ever been evaluated by GI. Currently, she denies any continued chest pain, nausea, vomiting, or difficulty breathing. - History Source History Provided By: Patient, Medical Record - Past Medical History Cardio/Vascular: Yes: HTN, Other (SVT) ...: No - Alcohol/Substance Use Hx Alcohol Use: No - Smoking History Smoking history: Never smoked Have you smoked in the past 12 months: No Home Medications - Allergies Allergies/Adverse Reactions: Allergies Allergy/AdvReac Type Severity Reaction Status Date / Time azithromycin [From Zithromax] Allergy Mild Verified 08/21/19 19:31 hydrochlorothiazide Allergy Mild Verified 08/21/19 19:31 [From Zestoretic] hydrocodone Allergy Mild Verified 08/21/19 19:31 lisinopril [From Zestoretic] Allergy Mild Verified 08/21/19 19:31 meclizine Allergy Mild Verified 08/21/19 19:31 - Home Medications Home Medications: Ambulatory Orders Aspirin 81 mg PO DAILY 06/15/19 Atorvastatin Ca [Lipitor] 10 mg PO HS 06/15/19 Calcium Carbonate [Oyster Shell Calcium] 500 mg PO DAILY 06/15/19 Cholecalciferol (Vitamin D3) [Vitamin D3] 1,000 unit PO DAILY 06/15/19 Glipizide/Metformin HCl [Glipizide-Metformin 5-500 mg] 1 each PO BID 06/15/19 Omeprazole 40 mg PO DAILY 06/15/19 Atenolol [Tenormin -] 50 mg PO DAILY 08/22/19 Cyanocobalamin [Vitamin B12 -] 1 tab PO DAILY 08/22/19 Ferrous Sulfate 325 mg PO DAILY 08/22/19 Potassium Citrate [Potassium Citrate ER] 10 meq PO TID 08/22/19 Rivaroxaban [Xarelto] 15 mg PO DAILY 08/22/19 Sitagliptin Phosphate [Januvia] 50 mg PO DAILY 08/22/19 Tamsulosin HCl 0.4 mg PO DAILY 08/22/19 Telmisartan/Hydrochlorothiazid [Telmisartan-Hctz 80-12.5 mg Tb] 1 tab PO DAILY 08/22/19 Review of Systems - Review of Systems Constitutional: reports: No Symptoms Eyes: reports: No Symptoms HENT: reports: No Symptoms Neck: reports: No Symptoms Cardiovascular: reports: Palpitations Respiratory: reports: No Symptoms Gastrointestinal: reports: No Symptoms Genitourinary: reports: No Symptoms Breasts: reports: No Symptoms Reported Musculoskeletal: reports: No Symptoms Integumentary: reports: No Symptoms Neurological: reports: No Symptoms Endocrine: reports: No Symptoms Hematology/Lymphatic: reports: No Symptoms Psychiatric: reports: No Symptoms Vital Signs: Vital Signs Temperature 102.7 F H 08/23/19 14:00 Pulse Rate 101 H 08/23/19 14:00 Respiratory Rate 20 08/23/19 14:00 Blood Pressure 140/84 08/23/19 14:00 O2 Sat by Pulse Oximetry (%) 93 L 08/22/19 21:00 Constitutional: Yes: Well Nourished, No Distress, Calm Eyes: Yes: WNL, Conjunctiva Clear, EOM Intact HENT: Yes: WNL, Atraumatic, Normocephalic Neck: Yes: WNL, Supple, Trachea Midline Respiratory: Yes: WNL, Regular, CTA Bilaterally Gastrointestinal: Yes: WNL, Normal Bowel Sounds Renal/: Yes: WNL Cardiovascular: Yes: WNL, Regular Rate and Rhythm Musculoskeletal: Yes: WNL Extremities: Yes: WNL Integumentary: Yes: WNL Neurological: Yes: WNL, Alert, Oriented ...Motor Strength: WNL Psychiatric: Yes: WNL, Alert, Oriented - Other Data Labs, Other Data: CBC, BMP 08/23/19 06:00 08/23/19 13:35 INR, PTT INR 1.46 (0.83-1.09) H 08/22/19 09:10 Troponin, BNP 08/23/19 12:15 Troponin I < 0.02 Troponin, BNP 08/23/19 12:15 Troponin I < 0.02 Imaging - Results Chest X-ray: Image Reviewed (no i/e) EKG: Image Reviewed (sr apc SVT 180) Problem List - Problems (1) DELBERT (acute kidney injury) Code(s): N17.9 - ACUTE KIDNEY FAILURE, UNSPECIFIED (2) Acute electrocardiogram changes Code(s): R94.31 - ABNORMAL ELECTROCARDIOGRAM [ECG] [EKG] (3) Leukocytosis Code(s): D72.829 - ELEVATED WHITE BLOOD CELL COUNT, UNSPECIFIED Qualifiers: Leukocytosis type: unspecified Qualified Code(s): D72.829 - Elevated white blood cell count, unspecified (4) Malaise and fatigue Code(s): R53.81 - OTHER MALAISE; R53.83 - OTHER FATIGUE (5) Nausea and vomiting Code(s): R11.2 - NAUSEA WITH VOMITING, UNSPECIFIED Qualifiers: Vomiting type: unspecified Vomiting Intractability: non-intractable Qualified Code(s): R11.2 - Nausea with vomiting, unspecified (6) Anemia Code(s): D64.9 - ANEMIA, UNSPECIFIED (7) HTN (hypertension) Code(s): I10 - ESSENTIAL (PRIMARY) HYPERTENSION (8) Hypoalbuminemia Code(s): E88.09 - OTH DISORDERS OF PLASMA-PROTEIN METABOLISM, NEC (9) PSVT (paroxysmal supraventricular tachycardia) Code(s): I47.1 - SUPRAVENTRICULAR TACHYCARDIA (10) S/P ureteral stent placement Code(s): Z96.0 - PRESENCE OF UROGENITAL IMPLANTS (11) Sepsis Code(s): A41.9 - SEPSIS, UNSPECIFIED ORGANISM Qualifiers: Sepsis type: sepsis due to unspecified organism Sepsis acute organ dysfunction status: unspecified Qualified Code(s): A41.9 - Sepsis, unspecified organism Assessment/Plan anemia NIDDM, HTN, HLD, prior admission for sepsis secondary to infected kidney stone c/b development of a-fib and SVT, one day s/p left kidney stone removal ( exact procedure unknown) and ureteral stent placement who was brought to the ED with multiple complaints including two months of frequent vomiting, generalized weakness, altered mental status, chest pain, and that her ureteral stent "fell out" today. Moderate to severe MR on ECHO, nl EF PSVT on teelemetry Plan; Cardizem CD 180 PO Metoprolol ER 100 QD Telemetry DVT plx and ID f/u EP evaluation for possible ablation whem stable . May use IV Cardizem and Lopressor PRN to braek the arrhythmia.
--- NOTE | 2019-08-23 15:22 | ECHO ---
Name: NOEL, RAMESH Exam:Adult Echocardiogram Study Date: 08/23/2019 02:32 PM Age: 73 yrs Height: 57 in Weight: 117 lb BSA: 1.4 m2 MMode/2D Measurements & Calculations IVSd: 0.90 cm Ao root diam: 2.2 cm LVIDd: 3.8 cm LA dimension: 3.1 cm LVIDs: 3.0 cm LVPWd: 0.95 cm LVPWs: 1.3 cm EDV(Teich): 60.5 ml ESV(Teich): 34.9 ml LVOT diam: 1.8 cm LAV (MOD-bp): 37.7 ml TAPSE: 1.2 cm RV S Wale: 12.8 cm/sec Doppler Measurements & Calculations MV E max wale: 104.0 cm/sec Ao V2 max: 141.8 cm/sec MV A max wale: 90.7 cm/sec Ao max P.1 mmHg MV E/A: 1.1 AI P1/2t: 235.6 msec MV dec time: 0.15 sec JOHN(V,D): 1.7 cm2 AI max wale: 339.9 cm/sec LV V1 max P.7 mmHg AI max P.4 mmHg LV V1 max: 96.0 cm/sec AI dec slope: 422.7 cm/sec2 MR max wale: 539.3 cm/sec TR max wale: 307.8 cm/sec MR max P.4 mmHg TR max P.3 mmHg PA V2 max: 118.2 cm/sec Med Peak E' Wale: 7.7 cm/sec PA max P.6 mmHg Med E/e': 13.5 Lat Peak E' Wale: 9.7 cm/sec Lat E/e': 10.7 Left Ventricle Left ventricular systolic function is normal. Ejection Fraction = 50-55%. The transmitral spectral Do ppler flow pattern is normal for age. Right Ventricle The right ventricle is normal in size and function. Atria The left atrium is mildly dilated. Right atrial size is normal. Mitral Valve The mitral valve is grossly normal. There is no mitral valve stenosis. There is moderate to severe mi tral regurgitation. Tricuspid Valve There is moderate tricuspid regurgitation. Right ventricular systolic pressure is elevated at 40-50mm Hg. Aortic Valve There is moderate aortic sclerosis.;. No hemodynamically significant valvular aortic stenosis. Modera te to severe aortic regurgitation. Pulmonic Valve There is no pulmonic valvular stenosis. Trace to mild pulmonic valvular regurgitation. Great Vessels The aortic root is normal size. Pericardium/Pleura There is no pericardial effusion. Interpretation Summary Left ventricular systolic function is normal. Ejection Fraction = 50-55%. The right ventricle is normal in size and function. The left atrium is mildly dilated. There is moderate to severe mitral regurgitation. There is moderate tricuspid regurgitation. Right ventricular systolic pressure is elevated at 40-50mmHg. Moderate to severe aortic regurgitation. There is no pericardial effusion. MD Erwin *Maritza 08/23/2019 03:21 PM
--- NOTE | 2019-08-23 19:28 | PN ---
Progress Note, Physician History of Present Illness: AWAKE, RESPONSIVE IN BED FEVER NOTED BC GNR ON MEROPENEM - Current Medication List Current Medications: Active Medications Acetaminophen (Tylenol -) 650 mg PO Q6H PRN PRN Reason: PAIN LEVEL 6-10 Last Admin: 08/23/19 13:50 Dose: 650 mg Atorvastatin Calcium (Lipitor -) 10 mg PO HS [facility] Last Admin: 08/22/19 22:10 Dose: 10 mg Calcium Carbonate/Cholecalciferol (Os-Neeraj 500+D -) 2 tab PO DAILY [facility] Last Admin: 08/23/19 10:25 Dose: 2 tab Diltiazem HCl (Cardizem Cd -) 180 mg PO DAILY [facility] Last Admin: 08/23/19 16:15 Dose: 180 mg Lactated Ringer's (Lactated Ringers Solution) 1,000 ml in 1,000 mls @ 100 mls/ hr IV ASDIR [facility] Last Admin: 08/23/19 11:48 Dose: 100 mls/hr Meropenem 1 gm/ Dextrose 100 mls @ 200 mls/hr IVPB Q8H-IV [facility] Last Admin: 08/23/19 17:37 Dose: 200 mls/hr Insulin Aspart (Novolog Vial Sliding Scale -) 1 vial SQ ACHS [facility]; Protocol Last Admin: 08/23/19 18:30 Dose: Not Given Metoprolol Succinate (Toprol Xl -) 100 mg PO DAILY [facility] Last Admin: 08/23/19 18:02 Dose: 100 mg Rivaroxaban (Xarelto) 15 mg PO DAILY [facility] Last Admin: 08/23/19 11:48 Dose: 15 mg - Objective Vital Signs: Vital Signs Temperature 102.7 F H 08/23/19 14:00 Pulse Rate 83 08/23/19 18:00 Respiratory Rate 08/23/19 18:00 Blood Pressure 118/69 08/23/19 18:00 O2 Sat by Pulse Oximetry (%) 93 L 08/22/19 21:00 Constitutional: Yes: No Distress Cardiovascular: Yes: Regular Rate and Rhythm, S1, S2 Respiratory: Yes: CTA Bilaterally Gastrointestinal: Yes: Normal Bowel Sounds, Soft Edema: No Labs: CBC, BMP 08/23/19 06:00 08/23/19 13:35 INR, PTT INR 1.46 (0.83-1.09) H 08/22/19 09:10 Assessment/Plan GRAM NEGATIVE SEPSIS LIKELY SOURCE S/P MANIPULATION HX ESBL AWAIT C/S CONTINUE MEROPENEM CONTACT PRECAUTIONS
[2019-08-23] MEDS: ATORVASTATIN CA 10 MG TABLET (FP) PO SCH (22:08)
[2019-08-24] MEDS ORDERED: MEROPENEM 1 GM VIAL (RESTRICTED TO ID) IVPB ONE ×3 (01:27→17:05)
[2019-08-24] MEDS ORDERED: DEXTROSE 5%-WATER 100 ML IVPB ONE ×3 (01:27→17:05)
[2019-08-24] MEDS: ACETAMINOPHEN 325 MG TABLET (FP) PO PRN ×2 (01:30→17:27)
[2019-08-24] MEDS: MEROPENEM 1 GM in DEXTROSE 5%-WATER 100 ML IVPB SCH ×3 (01:30→17:21)
[2019-08-24] MEDS: INSULIN SLIDING SCALE (NOVOLOG) 1 VIAL SQ SCH ×4 (06:28→21:48)
[2019-08-24] MEDS ORDERED: PT OWN MED DRAWER 7, Y5N ONE (08:43)
--- NOTE | 2019-08-24 08:47 | EKG ---
Test Reason : Blood Pressure : / mmHG Vent. Rate : 152 BPM Atrial Rate : 153 BPM P-R Int : 000 ms QRS Dur : 082 ms QT Int : 292 ms P-R-T Axes : 000 008 016 degrees QTc Int : 464 ms SUPRAVENTRICULAR TACHYCARDIA OTHERWISE NORMAL ECG WHEN COMPARED WITH ECG OF 23-AUG-2019 09:59, VENT. RATE HAS INCREASED BY 60 BPM Confirmed by PRIYANKA MEDLEY MD ([id number]) on 08/24/2019 8:47:19 AM Referred By: AUDREY SALGADO DR Confirmed By:PRIYANKA MEDLEY MD
[2019-08-24] MEDS: RIVAROXABAN 15 MG TABLET PO SCH (09:12)
[2019-08-24] MEDS: CALCIUM 500MG/VIT-D 200 UNITS COMBO TABLET (FP) PO SCH (09:12)
--- NOTE | 2019-08-24 09:26 | PN ---
Progress Note, Physician History of Present Illness: Mary Martínez is a 73yo woman with a PMH of anemia NIDDM, HTN, HLD, prior admission for sepsis secondary to infected kidney stone c/b development of a- fib and SVT, one day s/p left kidney stone removal (exact procedure unknown) and ureteral stent placement who was brought to the ED with multiple complaints including two months of frequent vomiting, generalized weakness, altered mental status, chest pain, and that her ureteral stent "fell out" today. Ms Martínez is speaking only minimally, but her niece is present to provide information. The niece says that the patient has been unable to keep down anything for several months, which they attributed to the kidney stones. However , she had a stent placed in June, and then a procedure to remove the stone yesterday at [facility]. The niece says that the patient had a high fever following her procedure yesterday but was discharged home with a normal temperature. She has continued to feel unwell with increased nausea/vomiting since yesterday. She also complained of chest pain earlier today. The neice also note that the patient has appeared pale and has "not been herself." Reportedly, Ms Martínez is usually very talkative, but she has hardly been saying anyting today. She has also appeared very fatigued. Other than the fever post-procedure yesterday, the patient has had no known recent fevers/chills, change in frequency of bowel movements, urinary symptoms, severe abdominal pain, difficulty breathing, lightheadedness, or diaphoresis. She reports having a daily bowl movement and voids 3-4 times per day. She denies bilious vomiting or hematemesis. She has not ever been evaluated by GI. Currently, she denies any continued chest pain, nausea, vomiting, or difficulty breathing. - Current Medication List Current Medications: Active Medications Acetaminophen (Tylenol -) 650 mg PO Q6H PRN PRN Reason: PAIN LEVEL 6-10 Last Admin: 08/24/19 01:30 Dose: 650 mg Atorvastatin Calcium (Lipitor -) 10 mg PO HS [facility] Last Admin: 08/23/19 22:08 Dose: 10 mg Calcium Carbonate/Cholecalciferol (Os-Neeraj 500+D -) 2 tab PO DAILY [facility] Last Admin: 08/24/19 09:12 Dose: 2 tab Diltiazem HCl (Cardizem Cd -) 180 mg PO DAILY [facility] Last Admin: 08/24/19 09:12 Dose: 180 mg Lactated Ringer's (Lactated Ringers Solution) 1,000 ml in 1,000 mls @ 100 mls/ hr IV ASDIR [facility] Last Admin: 08/23/19 11:48 Dose: 100 mls/hr Meropenem 1 gm/ Dextrose 100 mls @ 200 mls/hr IVPB Q8H-IV [facility] Last Admin: 08/24/19 09:13 Dose: 200 mls/hr Insulin Aspart (Novolog Vial Sliding Scale -) 1 vial SQ ACHS [facility]; Protocol Last Admin: 08/24/19 06:28 Dose: Not Given Metoprolol Succinate (Toprol Xl -) 100 mg PO DAILY [facility] Last Admin: 08/24/19 09:12 Dose: 100 mg Rivaroxaban (Xarelto) 15 mg PO DAILY [facility] Last Admin: 08/24/19 09:12 Dose: 15 mg - Objective Vital Signs: Vital Signs Temperature 102.3 F H 08/24/19 02:06 Pulse Rate 95 H 08/24/19 02:06 Respiratory Rate 08/24/19 02:06 Blood Pressure 127/74 08/24/19 02:06 O2 Sat by Pulse Oximetry (%) 98 08/23/19 20:49 Eyes: Yes: WNL, Conjunctiva Clear, EOM Intact HENT: Yes: WNL, Atraumatic, Normocephalic Neck: Yes: WNL, Supple, Trachea Midline Cardiovascular: Yes: Pulse Irregular Respiratory: Yes: WNL, Regular, CTA Bilaterally Gastrointestinal: Yes: WNL, Normal Bowel Sounds Genitourinary: Yes: WNL Musculoskeletal: Yes: WNL Extremities: Yes: WNL Edema: No Integumentary: Yes: WNL Neurological: Yes: WNL, Alert, Oriented ...Motor Strength: WNL Psychiatric: Yes: WNL Labs: CBC, BMP 08/23/19 06:00 08/23/19 13:35 INR, PTT INR 1.46 (0.83-1.09) H 08/22/19 09:10 Problem List - Problems (1) DELBERT (acute kidney injury) Code(s): N17.9 - ACUTE KIDNEY FAILURE, UNSPECIFIED (2) Acute electrocardiogram changes Code(s): R94.31 - ABNORMAL ELECTROCARDIOGRAM [ECG] [EKG] (3) Leukocytosis Code(s): D72.829 - ELEVATED WHITE BLOOD CELL COUNT, UNSPECIFIED Qualifiers: Leukocytosis type: unspecified Qualified Code(s): D72.829 - Elevated white blood cell count, unspecified (4) Malaise and fatigue Code(s): R53.81 - OTHER MALAISE; R53.83 - OTHER FATIGUE (5) Nausea and vomiting Code(s): R11.2 - NAUSEA WITH VOMITING, UNSPECIFIED Qualifiers: Vomiting type: unspecified Vomiting Intractability: non-intractable Qualified Code(s): R11.2 - Nausea with vomiting, unspecified (6) Anemia Code(s): D64.9 - ANEMIA, UNSPECIFIED (7) HTN (hypertension) Code(s): I10 - ESSENTIAL (PRIMARY) HYPERTENSION (8) Hypoalbuminemia Code(s): E88.09 - OTH DISORDERS OF PLASMA-PROTEIN METABOLISM, NEC (9) PSVT (paroxysmal supraventricular tachycardia) Code(s): I47.1 - SUPRAVENTRICULAR TACHYCARDIA (10) S/P ureteral stent placement Code(s): Z96.0 - PRESENCE OF UROGENITAL IMPLANTS (11) Sepsis Code(s): A41.9 - SEPSIS, UNSPECIFIED ORGANISM Qualifiers: Sepsis type: sepsis due to unspecified organism Sepsis acute organ dysfunction status: unspecified Qualified Code(s): A41.9 - Sepsis, unspecified organism Assessment/Plan anemia NIDDM, HTN, HLD, prior admission for sepsis secondary to infected kidney stone c/b development of a-fib and SVT, one day s/p left kidney stone removal ( exact procedure unknown) and ureteral stent placement who was brought to the ED with multiple complaints including two months of frequent vomiting, generalized weakness, altered mental status, chest pain, and that her ureteral stent "fell out" today. Moderate to severe MR on ECHO, nl EF No PSVT on telemetry Now in AF Plan; AC with Xarelto Cardizem CD 180 PO Metoprolol ER 100 QD Telemetry DVT plx and ID f/u EP evaluation for possible ablation when stable . May use IV Cardizem and Lopressor PRN to braek the arrhythmia.
[2019-08-24] MEDS ORDERED: dilTIAZem HCL 60 MG TABLET (FP) PO ONE (11:15)
--- NOTE | 2019-08-24 11:25 | EKG ---
Test Reason : Blood Pressure : / mmHG Vent. Rate : 112 BPM Atrial Rate : 144 BPM P-R Int : 000 ms QRS Dur : 090 ms QT Int : 344 ms P-R-T Axes : 000 023 013 degrees QTc Int : 469 ms ATRIAL FIBRILLATION WITH RAPID VENTRICULAR RESPONSE ABNORMAL ECG WHEN COMPARED WITH ECG OF 23-AUG-2019 15:14, ATRIAL FIBRILLATION HAS REPLACED SINUS RHYTHM Confirmed by PRIYANKA MEDLEY MD ([id number]) on 08/24/2019 11:25:12 AM Referred By: Nick LINK Confirmed By:PRIYANKA MEDLEY MD
--- NOTE | 2019-08-24 14:45 | PN ---
Physical Exam: SUBJECTIVE: Patient seen and examined. She has no complaints. She denies CP, palpitations, SOB. OBJECTIVE: Vital Signs Period Temp Pulse Resp BP Sys/Ho Pulse Ox Last 24 Hr 97.3 F-102.3 F 80-108 20-20 115-132/69-75 96-98 GENERAL: The patient is awake, alert, and fully oriented, mildly dyspneic. LUNGS: Breath sounds equal, clear to auscultation bilaterally, no wheezes, no crackles, no accessory muscle use. HEART: Regular rhythm, S1, S2, tachycardic without murmur, rub or gallop. ABDOMEN: Soft, nontender, nondistended, normoactive bowel sounds, no guarding, no rebound, no hepatosplenomegaly, no masses. EXTREMITIES: 2+ pulses, warm, well-perfused, no edema. Laboratory Results - last 24 hr 08/23/19 08/23/19 08/24/19 18:17 21:08 05:36 POC Glucometer 177 141 135 08/24/19 11:11 POC Glucometer 197 Active Medications Generic Name Dose Route Start Last Admin Trade Name Freq PRN Reason Stop Dose Admin Acetaminophen 650 mg 08/22/19 02:04 08/24/19 01:30 Tylenol - PO 650 mg Q6H PRN Administration PAIN LEVEL 6-10 Atorvastatin Calcium 10 mg 08/22/19 22:00 08/23/19 22:08 Lipitor - PO 10 mg HS [facility] Administration Calcium Carbonate/Cholecalciferol 2 tab 08/22/19 22:55 08/24/19 09:12 Os-Neeraj 500+D - PO 2 tab DAILY [facility] Administration Diltiazem HCl 300 mg 08/25/19 06:00 Cardizem Cd - PO DAILY@0600 [facility] Lactated Ringer's 1,000 ml in 1,000 mls @ 100 mls/hr 08/22/19 11:45 08/23/19 11:48 Lactated Ringers Solution IV 100 mls/hr ASDIR [facility] Administration Meropenem 1 gm/ Dextrose 100 mls @ 200 mls/hr 08/22/19 18:00 08/24/19 09:13 IVPB 200 mls/hr Q8H-IV [facility] Administration Insulin Aspart 1 vial 08/22/19 07:00 08/24/19 11:13 Novolog Vial Sliding Scale - SQ 2 units ACHS [facility] Administration Protocol Metoprolol Succinate 100 mg 08/23/19 15:45 08/24/19 09:12 Toprol Xl - PO 100 mg DAILY [facility] Administration Rivaroxaban 15 mg 08/23/19 10:45 08/24/19 09:12 Xarelto PO 15 mg DAILY [facility] Administration ASSESSMENT/PLAN: This is a 73 year old woman with a history of HTN, hyperlipidemia, type 2 DM, anemia who presented to the ED with fever, nausea/vomiting, and weakness after ureteral stone removal and stent placement. 1. Sepsis secondary to ESBL E.coli bacteremia and UTI - Temp 102.3 overnight - Repeat blood cultures negative - Repeat urine culture growing group D Strep or Enterococcus - Continue meropenem (day 3) 2. Hypokalemia - Improved 3. Hypomagnesemia - Improved 4. Hypophosphatemia - Continue to supplement phosphorus 5. PSVT - Continue Toprol XL, Cardizem CD - Patient on Xarelto for ? history of PAF 6. HTN - Continue Cardizem CD, Toprol XL 7. Hyperlipidemia - Continue Lipitor 8. Type 2 DM - Glipizide, metformin, Januvia held - Continue Novolog sliding scale 9. Anemia - Likely multifactorial - chronic illness, iron deficiency, sepsis - Transfused 2 units PRBCs this admission Visit type - Emergency Visit Emergency Visit: Yes ED Registration Date: 08/21/19 Care time: The patient presented to the Emergency Department on the above date and was hospitalized for further evaluation of their emergent condition. - New Patient This patient is new to me today: Yes Date on this admission: 08/24/19 - Critical Care Critical Care patient: No - Discharge Referral Referred to [facility] Med P.C.: No
[2019-08-24] MEDS ORDERED: NAPH,MB-DB/K PH,MBDB POWDER PACKET PO ONE (17:08)
[2019-08-24] MEDS ORDERED: MAGNESIUM OXIDE 400 MG TABLET (FP) PO ONE (17:08)
[2019-08-24] MEDS: LACTATED RINGERS SOLUTION 1,000 ML/1,000 ML INFUS.BAG IV SCH ×2 (17:21→21:43)
[2019-08-24] MEDS: ATORVASTATIN CA 10 MG TABLET (FP) PO SCH (21:46)
[2019-08-25] MEDS ORDERED: MEROPENEM 1 GM VIAL (RESTRICTED TO ID) IVPB ONE ×3 (01:02→17:52)
[2019-08-25] MEDS ORDERED: DEXTROSE 5%-WATER 100 ML IVPB ONE ×3 (01:02→17:52)
[2019-08-25] MEDS: MEROPENEM 1 GM in DEXTROSE 5%-WATER 100 ML IVPB SCH ×3 (01:06→18:46)
[2019-08-25] MEDS: LACTATED RINGERS SOLUTION 1,000 ML/1,000 ML INFUS.BAG IV SCH (04:33)
[2019-08-25] MEDS: INSULIN SLIDING SCALE (NOVOLOG) 1 VIAL SQ SCH ×4 (05:59→21:16)
[2019-08-25 06:36] LABS: HEMOGLOBIN 10.2 GM/dL (10.7-15.3); MCH 26.4 pg (25.7-33.7); MEAN PLT VOLUME 6.7 fl (7.5-11.1); PLATELET COUNT 292 K/MM3 (134-434); RBC 3.88 M/mm3 (3.60-5.2); RDW 18.2 % (11.6-15.6); WHITE BLOOD COUNT 7.2 K/mm3 (4.0-10.0)
[2019-08-25 06:48] LABS: BLOOD UREA NITROGEN 9.8 mg/dL (7-18); CALCIUM 7.6 mg/dL (8.5-10.1); CREATININE 0.6 mg/dL (0.55-1.3); MAGNESIUM 1.2 mg/dL (1.8-2.4); POTASSIUM 3.6 mmol/L (3.5-5.1)
--- NOTE | 2019-08-25 07:35 | PN ---
Progress Note, Physician History of Present Illness: Mary Martínez is a 73yo woman with a PMH of anemia NIDDM, HTN, HLD, prior admission for sepsis secondary to infected kidney stone c/b development of a- fib and SVT, one day s/p left kidney stone removal (exact procedure unknown) and ureteral stent placement who was brought to the ED with multiple complaints including two months of frequent vomiting, generalized weakness, altered mental status, chest pain, and that her ureteral stent "fell out" today. Ms Martínez is speaking only minimally, but her niece is present to provide information. The niece says that the patient has been unable to keep down anything for several months, which they attributed to the kidney stones. However , she had a stent placed in June, and then a procedure to remove the stone yesterday at [facility]. The niece says that the patient had a high fever following her procedure yesterday but was discharged home with a normal temperature. She has continued to feel unwell with increased nausea/vomiting since yesterday. She also complained of chest pain earlier today. The neice also note that the patient has appeared pale and has "not been herself." Reportedly, Ms Martínez is usually very talkative, but she has hardly been saying anyting today. She has also appeared very fatigued. Other than the fever post-procedure yesterday, the patient has had no known recent fevers/chills, change in frequency of bowel movements, urinary symptoms, severe abdominal pain, difficulty breathing, lightheadedness, or diaphoresis. She reports having a daily bowl movement and voids 3-4 times per day. She denies bilious vomiting or hematemesis. She has not ever been evaluated by GI. Currently, she denies any continued chest pain, nausea, vomiting, or difficulty breathing. - Current Medication List Current Medications: Active Medications Acetaminophen (Tylenol -) 650 mg PO Q6H PRN PRN Reason: PAIN LEVEL 6-10 Last Admin: 08/24/19 17:27 Dose: 650 mg Atorvastatin Calcium (Lipitor -) 10 mg PO HS [facility] Last Admin: 08/24/19 21:46 Dose: 10 mg Calcium Carbonate/Cholecalciferol (Os-Neeraj 500+D -) 2 tab PO DAILY [facility] Last Admin: 08/24/19 09:12 Dose: 2 tab Diltiazem HCl (Cardizem Cd -) 300 mg PO DAILY@0600 [facility] Last Admin: 08/25/19 06:01 Dose: 300 mg Lactated Ringer's (Lactated Ringers Solution) 1,000 ml in 1,000 mls @ 100 mls/ hr IV ASDIR [facility] Last Admin: 08/25/19 04:33 Dose: 100 mls/hr Meropenem 1 gm/ Dextrose 100 mls @ 200 mls/hr IVPB Q8H-IV [facility] Last Admin: 08/25/19 01:06 Dose: 200 mls/hr Insulin Aspart (Novolog Vial Sliding Scale -) 1 vial SQ ACHS [facility]; Protocol Last Admin: 08/25/19 05:59 Dose: Not Given Metoprolol Succinate (Toprol Xl -) 100 mg PO DAILY [facility] Last Admin: 08/24/19 09:12 Dose: 100 mg Rivaroxaban (Xarelto) 15 mg PO DAILY [facility] Last Admin: 08/24/19 09:12 Dose: 15 mg - Objective Vital Signs: Vital Signs Temperature 98.7 F 08/25/19 06:00 Pulse Rate 99 H 08/25/19 06:00 Respiratory Rate 18 08/25/19 06:00 Blood Pressure 120/63 08/25/19 06:00 O2 Sat by Pulse Oximetry (%) 96 08/24/19 09:00 Eyes: Yes: WNL, Conjunctiva Clear, EOM Intact HENT: Yes: WNL, Atraumatic, Normocephalic Neck: Yes: WNL, Supple, Trachea Midline Cardiovascular: Yes: Pulse Irregular Respiratory: Yes: WNL, Regular, CTA Bilaterally Gastrointestinal: Yes: WNL, Normal Bowel Sounds Genitourinary: Yes: WNL Musculoskeletal: Yes: WNL Extremities: Yes: WNL Edema: No Integumentary: Yes: WNL Neurological: Yes: WNL, Alert, Oriented ...Motor Strength: WNL Psychiatric: Yes: WNL Labs: CBC, BMP 08/25/19 05:50 08/25/19 05:50 INR, PTT INR 1.46 (0.83-1.09) H 08/22/19 09:10 Problem List - Problems (1) DELBERT (acute kidney injury) Code(s): N17.9 - ACUTE KIDNEY FAILURE, UNSPECIFIED (2) Acute electrocardiogram changes Code(s): R94.31 - ABNORMAL ELECTROCARDIOGRAM [ECG] [EKG] (3) Leukocytosis Code(s): D72.829 - ELEVATED WHITE BLOOD CELL COUNT, UNSPECIFIED Qualifiers: Leukocytosis type: unspecified Qualified Code(s): D72.829 - Elevated white blood cell count, unspecified (4) Malaise and fatigue Code(s): R53.81 - OTHER MALAISE; R53.83 - OTHER FATIGUE (5) Nausea and vomiting Code(s): R11.2 - NAUSEA WITH VOMITING, UNSPECIFIED Qualifiers: Vomiting type: unspecified Vomiting Intractability: non-intractable Qualified Code(s): R11.2 - Nausea with vomiting, unspecified (6) Anemia Code(s): D64.9 - ANEMIA, UNSPECIFIED (7) HTN (hypertension) Code(s): I10 - ESSENTIAL (PRIMARY) HYPERTENSION (8) Hypoalbuminemia Code(s): E88.09 - OTH DISORDERS OF PLASMA-PROTEIN METABOLISM, NEC (9) PSVT (paroxysmal supraventricular tachycardia) Code(s): I47.1 - SUPRAVENTRICULAR TACHYCARDIA (10) S/P ureteral stent placement Code(s): Z96.0 - PRESENCE OF UROGENITAL IMPLANTS (11) Sepsis Code(s): A41.9 - SEPSIS, UNSPECIFIED ORGANISM Qualifiers: Sepsis type: sepsis due to unspecified organism Sepsis acute organ dysfunction status: unspecified Qualified Code(s): A41.9 - Sepsis, unspecified organism Assessment/Plan anemia NIDDM, HTN, HLD, prior admission for sepsis secondary to infected kidney stone c/b development of a-fib and SVT, one day s/p left kidney stone removal ( exact procedure unknown) and ureteral stent placement who was brought to the ED with multiple complaints including two months of frequent vomiting, generalized weakness, altered mental status, chest pain, and that her ureteral stent "fell out" today. Moderate to severe MR on ECHO, nl EF No PSVT on telemetry Now in AF Plan; AC with Xarelto Cardizem CD 180 PO Metoprolol ER 100 QD Telemetry DVT plx and ID f/u EP evaluation for possible ablation when stable . May use IV Cardizem and Lopressor PRN to braek the arrhythmia.
--- NOTE | 2019-08-25 08:48 | PN ---
Teaching Attending Note Name of Resident: Bo Carlton ATTENDING PHYSICIAN STATEMENT I saw and evaluated the patient. I reviewed the resident's note and discussed the case with the resident. I agree with the resident's findings and plan as documented. Seen and examined; please see resident note for further historical information. I personally verified all figueroa historical information and exam findings. Personally interpreted all imaging and diagnostics and reviewed appropriate consults. I reviewed all labs and vital signs as per resident note and EMR as documented. I agree with the above assessment and plan unless supplemented by myself in the following. Yesterday so events reviewed. Cardiology consultation reviewed, and possible EP eval for ablation when stable. She was in PS VT which converted to atrial fibrillation and is currently being anticoagulated with Xarelto and maintains on metoprolol succinate 100 mg daily as well as Cardizem 180 mg daily of the extended release formulation. She remains on telemetry. 10 item review of systems was completed and is negative aside from history of present illness VS, labs, imaging reviewed NAD, AAO, resting comfortably in bed. Irregular s1/2 no mgr Normal muscle tone, moves all 5 extremities with normal apparent strength Neck is supple, trachea midline, no mil[place] LN Lungs CTAB with sym expansion NT ND +BS no milton organomegaly CN2-12 wnl; no FND NC AT EOMI PERRLA Normal mood, appropriate behavior, euthymic affect No skin breakdown or rashes noted Assessment and plan: Patient initially admitted for sepsis secondary to infected kidney stone with development of P-SVT which converted into A. fib. She was recently evaluated for A. fib as an outpatient and her outpatient nursing home manager determined that she was not having atrial fibrillation, but this does not appear to be the case anymore. Secondary to the aforementioned she is continued on the following medications for the following problem list, and she may require an electrophysiology evaluation for possible ablation when she is stabilized. Problems include: Sepsis secondary to infected kidney stone, continue antibiotics as per infectious disease and follow-up with urology. Paroxysmal supraventricular tachycardia, now in A. fib Atrial fibrillation with RVR, continue with Cardizem 180, metoprolol succinate 100, PRN use of the aforementioned agents and there are intravenous formulations should she go into RVR. She is on Xarelto for anticoagulation. Microcytic anemia with iron deficiency, will initiate iron replacement and she can likely benefit from IV iron once the cute processes are resolved. Diabetes mellitus, A1c 6.6 Hypophosphatemia, improved, continue to trend Hypomagnesemia, continue to trend, was improved Hypertension history, controlled, continue to monitor Full Code
[2019-08-25] MEDS: CALCIUM 500MG/VIT-D 200 UNITS COMBO TABLET (FP) PO SCH (09:13)
[2019-08-25] MEDS: RIVAROXABAN 15 MG TABLET PO SCH (09:13)
[2019-08-25] MEDS ORDERED: POTASSIUM PHOSPHATE 20 MM in SODIUM CHLORIDE 250 ML IVPB ONE (09:58)
[2019-08-25] MEDS ORDERED: MAGNESIUM SULF 50% (8.12 MEQ/2 ML-1 GM VIAL) IVPB ONE ×3 (09:58→12:30)
--- NOTE | 2019-08-25 13:13 | PN ---
Physical Exam: SUBJECTIVE: Patient seen and examined at bedside this morning. Denies acute complaints. Tele reveals irregular heart rate approx 1800 last night. OBJECTIVE: Vital Signs Period Temp Pulse Resp BP Sys/Ho Pulse Ox Last 24 Hr 97.3 F-100.1 F 76-100 18-20 120-150/59-79 96 GENERAL: The patient is awake, alert, and fully oriented, in no acute distress. HEAD: Normocephalic, atraumatic. EYES: PERRL, extraocular movements intact, sclera anicteric, conjunctiva clear. ENT: Oropharynx clear, without erythema or exudates. Moist mucous membranes. NECK: Trachea midline, full range of motion. Supple without lymphadenopathy. LUNGS: Breath sounds equal, clear to auscultation bilaterally. No wheezes, no crackles. No accessory muscle use. HEART: Regular rate and rhythm. S1, S2 without murmur, rub or gallop. ABDOMEN: Soft, nondistended, nontender to light and deep palpation x4 quadrants. No rebound tenderness, no guarding. Normoactive bowel sounds x4 quadrants. No hepatosplenomegaly, no masses appreciated. EXTREMITIES: 2+ radial, dorsalis pedis pulses bilaterally. Warm, well-perfused. No lower extremity edema bilaterally. NEUROLOGICAL: Cranial nerves II through XII grossly intact. Normal speech. No gross focal deficits. PSYCH: Normal mood, normal affect upon my encounter. SKIN: Warm, dry. Laboratory Results - last 24 hr 08/24/19 08/24/19 08/25/19 17:12 21:23 05:32 WBC RBC Hgb Hct MCV MCH MCHC RDW Plt Count MPV Sodium Potassium Chloride Carbon Dioxide Anion Gap BUN Creatinine Est GFR (CKD-EPI)AfAm Est GFR (CKD-EPI)NonAf POC Glucometer 161 114 120 Random Glucose Calcium Phosphorus Magnesium 08/25/19 08/25/19 08/25/19 05:50 05:50 11:26 WBC 7.2 RBC 3.88 Hgb 10.2 L Hct 31.0 L MCV 80.0 MCH 26.4 MCHC 33.0 RDW 18.2 H Plt Count 292 MPV 6.7 L Sodium 138 Potassium 3.6 Chloride 103 Carbon Dioxide 29 Anion Gap 6 L BUN 9.8 Creatinine 0.6 Est GFR (CKD-EPI)AfAm 104.07 Est GFR (CKD-EPI)NonAf 89.79 POC Glucometer 156 Random Glucose 116 H Calcium 7.6 L Phosphorus 2.0 L Magnesium 1.2 L Active Medications Generic Name Dose Route Start Last Admin Trade Name Maxx PRN Reason Stop Dose Admin Acetaminophen 650 mg 08/22/19 02:04 08/24/19 17:27 Tylenol - PO 650 mg Q6H PRN Administration PAIN LEVEL 6-10 Atorvastatin Calcium 10 mg 08/22/19 22:00 08/24/19 21:46 Lipitor - PO 10 mg HS [facility] Administration Calcium Carbonate/Cholecalciferol 2 tab 08/22/19 22:55 08/25/19 09:13 Os-Neeraj 500+D - PO 2 tab DAILY [facility] Administration Diltiazem HCl 300 mg 08/25/19 06:00 08/25/19 06:01 Cardizem Cd - PO 300 mg DAILY@0600 [facility] Administration Meropenem 1 gm/ Dextrose 100 mls @ 200 mls/hr 08/22/19 18:00 08/25/19 09:12 IVPB 200 mls/hr Q8H-IV [facility] Administration Potassium Phosphate 20 mm/ 256.6667 mls @ 62.5 mls/hr 08/25/19 09:58 Sodium Chloride IVPB 08/25/19 14:04 ONCE ONE Insulin Aspart 1 vial 08/22/19 07:00 08/25/19 11:27 Novolog Vial Sliding Scale - SQ 2 units ACHS [facility] Administration Protocol Metoprolol Succinate 100 mg 08/23/19 15:45 08/25/19 09:13 Toprol Xl - PO 100 mg DAILY [facility] Administration Rivaroxaban 15 mg 08/23/19 10:45 08/25/19 09:13 Xarelto PO 15 mg DAILY [facility] Administration ASSESSMENT/PLAN: Patient is a 73 year old female with history of hypertension, hyperlipidemia, diabetes mellitus, anemia admitted after fever, weakness nausea, vomiting after left kidney stone removal yesterday and ureteral stent placement Sepsis secondary to UTI, with ESBL E. coli bacteremia - Leukocytosis resolved. Afebrile. continue to monitor - Abdomen and pelvis CT abdomen pelvis revealed left nephrolithasis with mild to moderate hydronephrosis without obvious obstruction, air noted within the left urinary system. - Continue Meropenem (day #4) - Blood and urine culture both ESBL positive. Repeat urine culture preliminary positive for Group D strep or Entero Coccus - Urology consult (Dr. Bustamante) appreciated - ID consult (Dr. Honeycutt) appreciated - Isolation precautions for ESBL history Paroxysmal Afib, PSVT - Cardiology consult (Dr. Mishra) appreciated. - Cardizem CD increased to 300mg PO - Started on Metoprolol ER 100 QD. - Xarelto 15mg PO daily - EP evaluation for possible ablation once stable #Anemia with microcytosis no hx of GI visit or colonoscopy - Stool occult test negative. Likely secondary to iron deficiency anemia. Follow anemia workup. - S/p 2 unit PRBCs so far this admission; continue to monitor and transfuse as needed - stool occult negative Diabetes mellitus, type II - Insulin slidng scale ACHS - Fingerstick blood glucose monitoring ACHS Hypertenison - Cardizem 3000 PO daily - Metroprolol 100 QD Hyperlipidemia - Atorvastatin 10mg HS #Prophylaxis - Xarelto 15mg PO daily #FEN - No IV fluids indicated. - Hypomagnesemia, hypophosphatemia; repleted. Follow BMP, Mag, Phos - Diabetic/Sodium controlled diet #Disposition - Continue Telemetry floor level of care Visit type - Emergency Visit Emergency Visit: Yes ED Registration Date: 08/21/19 Care time: The patient presented to the Emergency Department on the above date and was hospitalized for further evaluation of their emergent condition. - New Patient This patient is new to me today: Yes Date on this admission: 08/25/19 - Critical Care Critical Care patient: No - Discharge Referral Referred to [facility] Med [facility].C.: No ATTENDING PHYSICIAN STATEMENT I saw and evaluated the patient. I reviewed the resident's note and discussed the case with the resident. I agree with the resident's findings and plan as documented. SUBJECTIVE: OBJECTIVE: ASSESSMENT AND PLAN:
[2019-08-25 16:13] LABS: BLOOD UREA NITROGEN 8.6 mg/dL (7-18); CALCIUM 7.8 mg/dL (8.5-10.1); CREATININE 0.6 mg/dL (0.55-1.3); MAGNESIUM 2.5 mg/dL (1.8-2.4); PHOSPHOROUS 2.6 mg/dL (2.5-4.9); POTASSIUM 3.1 mmol/L (3.5-5.1)
[2019-08-25] MEDS ORDERED: POTASSIUM CHLORIDE TABS 20 MEQ TABLET.ER (FP) PO ONE (17:00)
[2019-08-25] MEDS: ATORVASTATIN CA 10 MG TABLET (FP) PO SCH (21:16)
[2019-08-25] MEDS: ACETAMINOPHEN 325 MG TABLET (FP) PO PRN (21:17)
[2019-08-26] MEDS ORDERED: MEROPENEM 1 GM VIAL (RESTRICTED TO ID) IVPB ONE ×3 (01:31→16:52)
[2019-08-26] MEDS ORDERED: DEXTROSE 5%-WATER 100 ML IVPB ONE ×3 (01:32→16:52)
[2019-08-26] MEDS: MEROPENEM 1 GM in DEXTROSE 5%-WATER 100 ML IVPB SCH ×3 (02:10→17:24)
[2019-08-26 06:10] LABS: HEMATOCRIT 30.3 % (32.4-45.2); HEMOGLOBIN 10.4 GM/dL (10.7-15.3); MCH 27.5 pg (25.7-33.7); MCHC 34.3 g/dl (32.0-36.0); MEAN CELL VOLUME 80.1 fl (80-96); MEAN PLT VOLUME 6.8 fl (7.5-11.1); PLATELET COUNT 260 K/MM3 (134-434); RBC 3.79 M/mm3 (3.60-5.2); RDW 18.4 % (11.6-15.6)
[2019-08-26 06:34] LABS: ALBUMIN 1.8 g/dl (3.4-5.0); BILIRUBIN,TOTAL 0.3 mg/dL (0.2-1); BLOOD UREA NITROGEN 8.3 mg/dL (7-18); CALCIUM 7.9 mg/dL (8.5-10.1); CREATININE 0.6 mg/dL (0.55-1.3); MAGNESIUM 1.7 mg/dL (1.8-2.4); PHOSPHOROUS 2.8 mg/dL (2.5-4.9); POTASSIUM 3.8 mmol/L (3.5-5.1); TOT PROT 5.2 g/dl (6.4-8.2)
[2019-08-26] MEDS: INSULIN SLIDING SCALE (NOVOLOG) 1 VIAL SQ SCH ×4 (06:57→21:15)
[2019-08-26] MEDS ORDERED: MAGNESIUM SULF 50% (8.12 MEQ/2 ML-1 GM VIAL) IVPB ONE ×2 (08:15→13:21)
[2019-08-26] MEDS ORDERED: PT OWN MED DRAWER 7, Y5N ONE (09:52)
[2019-08-26] MEDS: CALCIUM 500MG/VIT-D 200 UNITS COMBO TABLET (FP) PO SCH (10:08)
[2019-08-26] MEDS: RIVAROXABAN 15 MG TABLET PO SCH (10:08)
--- NOTE | 2019-08-26 14:21 | PN ---
Teaching Attending Note Name of Resident: Deidre Gill ATTENDING PHYSICIAN STATEMENT I saw and evaluated the patient. I reviewed the resident's note and discussed the case with the resident. I agree with the resident's findings and plan as documented. Seen and examined, spoke with her via [employer] production support analyst. She is hemodynamically stable with normal to high heart rates trending in the 90s with some runs of SVT overnight. The patient has no new complaints, and states that she feels fine. Discussing titrating the medications with cardiology. Continuing on antibiotics. Discharge planning, PT. 10 item review of systems completed and is negative aside from as discussed in the subjective data in my own/the resident documentation. VS, labs, imaging reviewed NAD, AAO, resting comfortably in bed. RRR s1/2 no mgr and in normal sinus rhythm on the monitor Normal muscle tone, moves all 5 extremities with normal apparent strength Neck is supple, trachea midline, no mil[place] LN Lungs CTAB with sym expansion NT ND +BS no milton organomegaly CN2-12 wnl; no FND NC AT EOMI PERRLA Normal mood, appropriate behavior, euthymic affect No skin breakdown or rashes noted Telemetry reviewed, discussed above ASSESSMENT AND PLAN: Patient presents to the hospital with sepsis secondary to infected kidney stone and continues on antibiotics per infectious disease. Microbiology is noted and final antibiotic recommendations will be pending their service. They had a history of SVT that was seen on the last admission here that was felt to be A. fib. There were seen by their outpatient order entry who felt that this did not represent atrial fibrillation after a 30-day Holter monitor. All anticoagulation was discontinued including her rate control agents at that juncture. Her heart rate is improved today on the current medications. Continues on meropenem, now diltiazem is 300, continue Xarelto Problems include: Sepsis secondary to infected kidney stone, continue antibiotics as per infectious disease and follow-up with urology. Paroxysmal supraventricular tachycardia, now in A. fib Atrial fibrillation with RVR, Continuing Cardizem and metoprolol as per cardiology She is on Xarelto for anticoagulation. Microcytic anemia with iron deficiency, will initiate iron replacement and she can likely benefit from IV iron once the cute processes are resolved. Diabetes mellitus, A1c 6.6 Hypophosphatemia, improved, continue to trend Hypomagnesemia, continue to trend, was improved Hypertension history, controlled, continue to monitor Full Code
--- NOTE | 2019-08-26 16:33 | PN ---
Progress Note, Physician Chief Complaint: Pt A&Ox3; no chest pain, palpitations, or dizzinesss. History of Present Illness: Mary Martínez is a 73yo woman with a PMH of anemia NIDDM, HTN, HLD, prior admission for sepsis secondary to infected kidney stone c/b development of a- fib and SVT, one day s/p left kidney stone removal (exact procedure unknown) and ureteral stent placement who was brought to the ED with multiple complaints , including two months of frequent vomiting, generalized weakness, altered mental status, chest pain, and that her ureteral stent "fell out" today. Ms Martínez is speaking only minimally, but her niece is present to provide information. The niece says that the patient has been unable to keep down anything for several months, which they attributed to the kidney stones. However , she had a stent placed in June, and then a procedure to remove the stone yesterday at [facility]. The niece says that the patient had a high fever following her procedure yesterday but was discharged home with a normal temperature. She has continued to feel unwell with increased nausea/vomiting since yesterday. She also complained of chest pain earlier today. The neice also note that the patient has appeared pale and has "not been herself." Reportedly, Ms Martínez is usually very talkative, but she has hardly been saying anything today. She has also appeared very fatigued. - Current Medication List Current Medications: Active Medications Acetaminophen (Tylenol -) 650 mg PO Q6H PRN PRN Reason: PAIN LEVEL 6-10 Last Admin: 08/25/19 21:17 Dose: 650 mg Atorvastatin Calcium (Lipitor -) 10 mg PO HS [facility] Last Admin: 08/25/19 21:16 Dose: 10 mg Calcium Carbonate/Cholecalciferol (Os-Neeraj 500+D -) 2 tab PO DAILY [facility] Last Admin: 08/26/19 10:08 Dose: 2 tab Diltiazem HCl (Cardizem Cd -) 300 mg PO DAILY@0600 [facility] Last Admin: 08/26/19 06:45 Dose: 300 mg Meropenem 1 gm/ Dextrose 100 mls @ 200 mls/hr IVPB Q8H-IV [facility] Last Admin: 08/26/19 10:08 Dose: 200 mls/hr Insulin Aspart (Novolog Vial Sliding Scale -) 1 vial SQ ACHS [facility]; Protocol Last Admin: 08/26/19 11:32 Dose: 2 units Metoprolol Succinate (Toprol Xl -) 100 mg PO DAILY [facility] Last Admin: 08/26/19 10:07 Dose: 100 mg Rivaroxaban (Xarelto) 15 mg PO DAILY [facility] Last Admin: 08/26/19 10:08 Dose: 15 mg - Objective Vital Signs: Vital Signs Temperature 98.3 F 08/26/19 14:00 Pulse Rate 83 08/26/19 14:00 Respiratory Rate 08/26/19 14:00 Blood Pressure 136/72 08/26/19 14:00 O2 Sat by Pulse Oximetry (%) 95 08/26/19 09:00 Constitutional: Yes: Calm Eyes: Yes: WNL HENT: Yes: WNL Neck: Yes: WNL Cardiovascular: Yes: Pulse Irregular Respiratory: Yes: WNL Gastrointestinal: Yes: Soft ...Rectal Exam: Yes: Deferred Genitourinary: Yes: WNL Breast(s): Yes: WNL Musculoskeletal: Yes: Muscle Weakness Extremities: Yes: WNL Edema: No Peripheral Pulses WNL: Yes Integumentary: Yes: WNL Neurological: Yes: WNL ...Motor Strength: WNL Psychiatric: Yes: WNL Labs: CBC, BMP 08/26/19 05:05 08/26/19 05:05 INR, PTT INR 1.46 (0.83-1.09) H 08/22/19 09:10 Abnormal Lab Results 08/27/19 06:01 Carbon Dioxide 34 H Anion Gap 5 L Random Glucose 133 H Calcium 8.1 L Total Protein 5.7 L Albumin 2.0 L Free T4 1.62 H - ....Imaging Chest X-ray: Image Reviewed EKG: Image Reviewed Other: Image Reviewed (Telemetry: NSR; periods of PSVT, PAF) Problem List - Problems (1) PAF (paroxysmal atrial fibrillation) Assessment/Plan: On metoprolol ER and diltiazem ER. F/u HR and BP. On telemetry. Code(s): I48.0 - PAROXYSMAL ATRIAL FIBRILLATION (2) Leukocytosis Code(s): D72.829 - ELEVATED WHITE BLOOD CELL COUNT, UNSPECIFIED Qualifiers: Leukocytosis type: unspecified Qualified Code(s): D72.829 - Elevated white blood cell count, unspecified (3) Nausea and vomiting Code(s): R11.2 - NAUSEA WITH VOMITING, UNSPECIFIED Qualifiers: Vomiting type: unspecified Vomiting Intractability: non-intractable Qualified Code(s): R11.2 - Nausea with vomiting, unspecified (4) Anemia Code(s): D64.9 - ANEMIA, UNSPECIFIED (5) HTN (hypertension) Assessment/Plan: on metoprolol and diltiazem. Code(s): I10 - ESSENTIAL (PRIMARY) HYPERTENSION (6) PSVT (paroxysmal supraventricular tachycardia) Code(s): I47.1 - SUPRAVENTRICULAR TACHYCARDIA (7) S/P ureteral stent placement Assessment/Plan: on IV antibiotics. F/u with , ID. For PICC line and continued IV antibiotics when transferred to [facility]. Code(s): Z96.0 - PRESENCE OF UROGENITAL IMPLANTS (8) Sepsis Code(s): A41.9 - SEPSIS, UNSPECIFIED ORGANISM Qualifiers: Sepsis type: sepsis due to unspecified organism Sepsis acute organ dysfunction status: unspecified Qualified Code(s): A41.9 - Sepsis, unspecified organism
--- NOTE | 2019-08-26 16:47 | PN ---
Physical Exam: SUBJECTIVE: Patient seen and examined. No acute events overnight. Denies chest pain, abd pain, palpitations, SOB, chills, N/V. OBJECTIVE: Vital Signs Period Temp Pulse Resp BP Sys/Ho Pulse Ox Last 24 Hr 97.7 F-99.8 F 73-97 18-20 115-142/54-77 95-95 GENERAL: The patient is awake, alert, and fully oriented, in no acute distress. HEAD: Normocephalic, atraumatic. EYES: EOMI, no scleral icterus ENT: MMM NECK: Trachea midline, supple LUNGS: Breath sounds equal, clear to auscultation bilaterally. No wheezes, no crackles. No accessory muscle use. HEART: irregularly irregular ABDOMEN: Soft, nondistended, nontender, normoactive bowel sounds, no guarding, no rebound EXTREMITIES: 2+ radial, dorsalis pedis pulses bilaterally. Warm, well-perfused. No lower extremity edema bilaterally. NEUROLOGICAL: Normal speech, gait not observed. No facial droop. Sensation intact throughout PSYCH: Normal mood, normal affect SKIN: Warm, dry Laboratory Results - last 24 hr 08/22/19 08/25/19 08/25/19 06:37 17:14 21:13 WBC RBC Hgb Hct MCV MCH MCHC RDW Plt Count MPV Sodium Potassium Chloride Carbon Dioxide Anion Gap BUN Creatinine Est GFR (CKD-EPI)AfAm Est GFR (CKD-EPI)NonAf POC Glucometer 150 180 Random Glucose Calcium Phosphorus Magnesium Total Bilirubin AST ALT Alkaline Phosphatase Total Protein Albumin Blood Type A POSITIVE Antibody Screen Negative Crossmatch See Detail 08/26/19 08/26/19 08/26/19 05:05 05:05 06:44 WBC 6.0 RBC 3.79 Hgb 10.4 L Hct 30.3 L MCV 80.1 MCH 27.5 MCHC 34.3 RDW 18.4 H Plt Count 260 MPV 6.8 L Sodium 141 Potassium 3.8 Chloride 103 Carbon Dioxide 35 H Anion Gap 3 L BUN 8.3 Creatinine 0.6 Est GFR (CKD-EPI)AfAm 104.07 Est GFR (CKD-EPI)NonAf 89.79 POC Glucometer 134 Random Glucose 119 H Calcium 7.9 L Phosphorus 2.8 Magnesium 1.7 L Total Bilirubin 0.3 AST 14 L ALT 12 L Alkaline Phosphatase 79 Total Protein 5.2 L Albumin 1.8 L Blood Type Antibody Screen Crossmatch 08/26/19 11:22 WBC RBC Hgb Hct MCV MCH MCHC RDW Plt Count MPV Sodium Potassium Chloride Carbon Dioxide Anion Gap BUN Creatinine Est GFR (CKD-EPI)AfAm Est GFR (CKD-EPI)NonAf POC Glucometer 178 Random Glucose Calcium Phosphorus Magnesium Total Bilirubin AST ALT Alkaline Phosphatase Total Protein Albumin Blood Type Antibody Screen Crossmatch Active Medications Generic Name Dose Route Start Last Admin Trade Name Freq PRN Reason Stop Dose Admin Acetaminophen 650 mg 08/22/19 02:04 08/25/19 21:17 Tylenol - PO 650 mg Q6H PRN Administration PAIN LEVEL 6-10 Atorvastatin Calcium 10 mg 08/22/19 22:00 08/25/19 21:16 Lipitor - PO 10 mg HS [facility] Administration Calcium Carbonate/Cholecalciferol 2 tab 08/22/19 22:55 08/26/19 10:08 Os-Neeraj 500+D - PO 2 tab DAILY [facility] Administration Diltiazem HCl 300 mg 08/25/19 06:00 08/26/19 06:45 Cardizem Cd - PO 300 mg DAILY@0600 [facility] Administration Meropenem 1 gm/ Dextrose 100 mls @ 200 mls/hr 08/22/19 18:00 08/26/19 10:08 IVPB 200 mls/hr Q8H-IV [facility] Administration Insulin Aspart 1 vial 08/22/19 07:00 08/26/19 11:32 Novolog Vial Sliding Scale - SQ 2 units ACHS [facility] Administration Protocol Metoprolol Succinate 100 mg 08/23/19 15:45 08/26/19 10:07 Toprol Xl - PO 100 mg DAILY [facility] Administration Rivaroxaban 15 mg 08/23/19 10:45 08/26/19 10:08 Xarelto PO 15 mg DAILY [facility] Administration ASSESSMENT/PLAN: Patient is a 73 year old female with history of hypertension, hyperlipidemia, diabetes mellitus, anemia admitted after fever, weakness nausea, vomiting after left kidney stone removal yesterday and ureteral stent placement. #Sepsis secondary to UTI, with ESBL E. coli bacteremia - Leukocytosis resolved. Afebrile. continue to monitor - Abdomen and pelvis CT abdomen pelvis revealed left nephrolithasis with mild to moderate hydronephrosis without obvious obstruction, air noted within the left urinary system. - Continue Meropenem (day #5) - Will need treatment for 14 days total. PICC line order placed. - Blood and urine culture both ESBL positive. - Repeat urine culture positive for Enterococcus Faecium, however only b/w 10k- 20k colonies. - Urology consult (Dr. Bustamante) appreciated - ID consult (Dr. Honeycutt) appreciated - Isolation precautions for ESBL history #Paroxysmal Afib, PSVT - Cardiology consult (Dr. Mishra) appreciated - Cardizem CD increased to 300mg PO - Started on Metoprolol ER 100 QD - Xarelto 15mg PO daily - EP evaluation for possible ablation once stable #Anemia with microcytosis no hx of GI visit or colonoscopy - Stool occult test negative. Likely secondary to iron deficiency anemia. Follow anemia workup. - S/p 2 unit PRBCs so far this admission; continue to monitor and transfuse as needed - stool occult negative #Diabetes mellitus, type II - Insulin slidng scale ACHS - Fingerstick blood glucose monitoring ACHS #Hypertenison - Cardizem 300 PO daily - Metroprolol 100 QD #Hyperlipidemia - Atorvastatin 10mg HS #Prophylaxis - Xarelto 15mg PO daily #FEN - No IV fluids indicated. - Hypomagnesemia, hypophosphatemia; repleted. Follow BMP, Mag, Phos - Diabetic/Sodium controlled diet #Disposition - Will need PICC line for continuing abx treatment. SNF vs. home for further abx. Likely D/C tomorrow Visit type - Emergency Visit Emergency Visit: Yes ED Registration Date: 08/21/19 Care time: The patient presented to the Emergency Department on the above date and was hospitalized for further evaluation of their emergent condition. - New Patient This patient is new to me today: No - Critical Care Critical Care patient: No ATTENDING PHYSICIAN STATEMENT I saw and evaluated the patient. I reviewed the resident's note and discussed the case with the resident. I agree with the resident's findings and plan as documented. SUBJECTIVE: OBJECTIVE: ASSESSMENT AND PLAN:
--- NOTE | 2019-08-26 16:48 | PN ---
Progress Note, Physician History of Present Illness: AWAKE, RESPONSIVE IN BED OFFERS NO COMPLAINTS AFEBRILE BC, URINE C/S ESBL URINE C/S ENTEROCOCCUS ( CONTAMINANT ) - Current Medication List Current Medications: Active Medications Acetaminophen (Tylenol -) 650 mg PO Q6H PRN PRN Reason: PAIN LEVEL 6-10 Last Admin: 08/25/19 21:17 Dose: 650 mg Atorvastatin Calcium (Lipitor -) 10 mg PO HS [facility] Last Admin: 08/25/19 21:16 Dose: 10 mg Calcium Carbonate/Cholecalciferol (Os-Neeraj 500+D -) 2 tab PO DAILY [facility] Last Admin: 08/26/19 10:08 Dose: 2 tab Diltiazem HCl (Cardizem Cd -) 300 mg PO DAILY@0600 [facility] Last Admin: 08/26/19 06:45 Dose: 300 mg Meropenem 1 gm/ Dextrose 100 mls @ 200 mls/hr IVPB Q8H-IV [facility] Last Admin: 08/26/19 10:08 Dose: 200 mls/hr Insulin Aspart (Novolog Vial Sliding Scale -) 1 vial SQ ACHS [facility]; Protocol Last Admin: 08/26/19 11:32 Dose: 2 units Metoprolol Succinate (Toprol Xl -) 100 mg PO DAILY [facility] Last Admin: 08/26/19 10:07 Dose: 100 mg Rivaroxaban (Xarelto) 15 mg PO DAILY [facility] Last Admin: 08/26/19 10:08 Dose: 15 mg - Objective Vital Signs: Vital Signs Temperature 98.3 F 08/26/19 14:00 Pulse Rate 83 08/26/19 14:00 Respiratory Rate 20 08/26/19 14:00 Blood Pressure 136/72 08/26/19 14:00 O2 Sat by Pulse Oximetry (%) 95 08/26/19 09:00 Constitutional: Yes: No Distress Eyes: Yes: Conjunctiva Clear Cardiovascular: Yes: Regular Rate and Rhythm, S1, S2 Respiratory: Yes: CTA Bilaterally Gastrointestinal: Yes: Normal Bowel Sounds, Soft. No: Tenderness Edema: No Labs: CBC, BMP 08/26/19 05:05 08/26/19 05:05 INR, PTT INR 1.46 (0.83-1.09) H 08/22/19 09:10 Assessment/Plan GRAM NEGATIVE SEPSIS ESBL SOURCE S/P MANIPULATION ADVISE PICC FOR OUTPATIENT ANTIBIOTIC THERAPY: ERTAPENEM 1GM IVPB Q24H X 10D CONTACT PRECAUTIONS
[2019-08-26] MEDS: ATORVASTATIN CA 10 MG TABLET (FP) PO SCH (21:13)
[2019-08-27] MEDS ORDERED: MEROPENEM 1 GM VIAL (RESTRICTED TO ID) IVPB ONE ×3 (01:46→18:04)
[2019-08-27] MEDS ORDERED: DEXTROSE 5%-WATER 100 ML IVPB ONE ×3 (01:46→18:05)
[2019-08-27] MEDS: MEROPENEM 1 GM in DEXTROSE 5%-WATER 100 ML IVPB SCH ×3 (01:49→18:54)
[2019-08-27] MEDS: INSULIN SLIDING SCALE (NOVOLOG) 1 VIAL SQ SCH ×4 (05:59→22:53)
[2019-08-27 08:01] LABS: BILIRUBIN,TOTAL 0.4 mg/dL (0.2-1); BLOOD UREA NITROGEN 7.2 mg/dL (7-18); CALCIUM 8.1 mg/dL (8.5-10.1); CREATININE 0.6 mg/dL (0.55-1.3); MAGNESIUM 1.9 mg/dL (1.8-2.4); POTASSIUM 3.5 mmol/L (3.5-5.1); TOT PROT 5.7 g/dl (6.4-8.2)
[2019-08-27] MEDS: CALCIUM 500MG/VIT-D 200 UNITS COMBO TABLET (FP) PO SCH (10:26)
[2019-08-27] MEDS: RIVAROXABAN 15 MG TABLET PO SCH (10:29)
[2019-08-27] MEDS ORDERED: POTASSIUM CHLORIDE TABS 20 MEQ TABLET.ER (FP) PO ONE (13:03)
[2019-08-27] MEDS ORDERED: MAGNESIUM OXIDE 400 MG TABLET (FP) PO ONE (13:04)
--- NOTE | 2019-08-27 13:18 | PN ---
Progress Note, Physician Chief Complaint: Pt A&Ox3;asymptomatic. History of Present Illness: Mary Martínez is a 73yo woman (b. [birth year]), with a PMH of anemia, NIDDM, HTN , HLD, prior admission for sepsis secondary to infected kidney stone c/b development of PAF and PSVT, one day s/p left kidney stone removal (exact procedure unknown) and ureteral stent placement who was brought to the ED with multiple complaints, including two months of frequent vomiting, generalized weakness, altered mental status, chest pain, and that her ureteral stent "fell out" today. Ms Martínez is speaking only minimally, but her niece is present to provide information. The niece says that the patient has been unable to keep down anything for several months, which they attributed to the kidney stones. However , she had a stent placed in June, and then a procedure to remove the stone yesterday at [facility]. The niece says that the patient had a high fever following her procedure yesterday but was discharged home with a normal temperature. She has continued to feel unwell with increased nausea/vomiting since yesterday. She also complained of chest pain earlier today. The neice also note that the patient has appeared pale and has "not been herself." Reportedly, Ms Martínez is usually very talkative, but she has hardly been saying anything today. She has also appeared very fatigued. - Current Medication List Current Medications: Active Medications Acetaminophen (Tylenol -) 650 mg PO Q6H PRN PRN Reason: PAIN LEVEL 6-10 Last Admin: 08/25/19 21:17 Dose: 650 mg Atorvastatin Calcium (Lipitor -) 10 mg PO [facility] Last Admin: 08/26/19 21:13 Dose: 10 mg Calcium Carbonate/Cholecalciferol (Os-Neeraj 500+D -) 2 tab PO DAILY [facility] Last Admin: 08/27/19 10:26 Dose: 2 tab Diltiazem HCl (Cardizem Cd -) 300 mg PO DAILY@0600 [facility] Last Admin: 08/27/19 05:21 Dose: 300 mg Meropenem 1 gm/ Dextrose 100 mls @ 200 mls/hr IVPB Q8H-IV [facility] Last Admin: 08/27/19 10:29 Dose: 200 mls/hr Insulin Aspart (Novolog Vial Sliding Scale -) 1 vial SQ ACHS [facility]; Protocol Last Admin: 08/27/19 12:13 Dose: 2 units Metoprolol Succinate (Toprol Xl -) 100 mg PO DAILY [facility] Last Admin: 08/27/19 10:26 Dose: 100 mg Rivaroxaban (Xarelto) 15 mg PO DAILY [facility] Last Admin: 08/27/19 10:29 Dose: 15 mg - Objective Vital Signs: Vital Signs Temperature 98.2 F 08/27/19 06:49 Pulse Rate 95 H 08/27/19 06:49 Respiratory Rate 08/27/19 09:17 Blood Pressure 125/67 08/27/19 06:49 O2 Sat by Pulse Oximetry (%) 94 L 08/27/19 09:00 Constitutional: Yes: No Distress Eyes: Yes: WNL HENT: Yes: WNL Neck: Yes: WNL Cardiovascular: Yes: Regular Rate and Rhythm Respiratory: Yes: WNL Genitourinary: Yes: Other (s/p ureteral stent). No: Anuria Breast(s): Yes: WNL Musculoskeletal: Yes: Muscle Weakness Extremities: Yes: WNL Edema: No Peripheral Pulses WNL: Yes Integumentary: Yes: WNL Neurological: Yes: WNL Psychiatric: Yes: WNL Labs: CBC, BMP 08/26/19 05:05 08/27/19 06:01 INR, PTT INR 1.46 (0.83-1.09) H 08/22/19 09:10 Abnormal Lab Results 08/27/19 06:01 Carbon Dioxide 34 H Anion Gap 5 L Random Glucose 133 H Calcium 8.1 L Total Protein 5.7 L Albumin 2.0 L Free T4 1.62 H - ....Imaging Other: Image Reviewed (telemetry: NSR) Problem List - Problems (1) PAF (paroxysmal atrial fibrillation) Assessment/Plan: On metoprolol ER and diltiazem ER. F/u HR and BP. On telemetry. Keep K+ 4.0-4.5 Keep Mg 2.02.4 Keep PO4 2.5-4.9. F/u EKG. Code(s): I48.0 - PAROXYSMAL ATRIAL FIBRILLATION (2) Leukocytosis Assessment/Plan: resolved. On IV antibiotics. Code(s): D72.829 - ELEVATED WHITE BLOOD CELL COUNT, UNSPECIFIED Qualifiers: Leukocytosis type: unspecified Qualified Code(s): D72.829 - Elevated white blood cell count, unspecified (3) Anemia Assessment/Plan: stable Hb post-PRBCs Code(s): D64.9 - ANEMIA, UNSPECIFIED (4) HTN (hypertension) Assessment/Plan: on metoprolol and diltiazem. BP well-controlled. Code(s): I10 - ESSENTIAL (PRIMARY) HYPERTENSION (5) PSVT (paroxysmal supraventricular tachycardia) Assessment/Plan: On metoprolol and diltiazem. Maintain hydration. Keep electrolytes WNL (Please see under "PAF"). Code(s): I47.1 - SUPRAVENTRICULAR TACHYCARDIA (6) S/P ureteral stent placement Code(s): Z96.0 - PRESENCE OF UROGENITAL IMPLANTS (7) Sepsis Code(s): A41.9 - SEPSIS, UNSPECIFIED ORGANISM Qualifiers: Sepsis type: sepsis due to unspecified organism Sepsis acute organ dysfunction status: unspecified Qualified Code(s): A41.9 - Sepsis, unspecified organism
--- NOTE | 2019-08-27 14:01 | PN ---
Teaching Attending Note Name of Resident: Deidre Gill ATTENDING PHYSICIAN STATEMENT I saw and evaluated the patient. I reviewed the resident's note and discussed the case with the resident. I agree with the resident's findings and plan as documented. SUBJECTIVE: Feels well, no complaints. No fever/chills. OBJECTIVE: Afebrile, Hemodynamically Stable. Last Vital Signs Temp Pulse Resp BP Pulse Ox 98.7 F 93 H 17 129/69 94 L 08/27/19 13:20 08/27/19 13:20 08/27/19 13:20 08/27/19 13:20 08/27/19 09:00 HEENT- Atraumatic, Normocephalic. Heart - S1, S2, RRR Lungs - clear to auscultation Abdomen - Soft, non-tender. Bowel Sounds normal. Extremities - no calf tenderness. Neuro - AAO x 3. Moving all extremities. Laboratory Results - last 24 hr 08/26/19 08/26/19 08/27/19 17:03 21:12 05:35 Sodium Potassium Chloride Carbon Dioxide Anion Gap BUN Creatinine Est GFR (CKD-EPI)AfAm Est GFR (CKD-EPI)NonAf POC Glucometer 156 178 135 Random Glucose Calcium Magnesium Total Bilirubin AST ALT Alkaline Phosphatase Total Protein Albumin Free T4 08/27/19 08/27/19 06:01 11:42 Sodium 137 Potassium 3.5 Chloride 98 Carbon Dioxide 34 H Anion Gap 5 L BUN 7.2 Creatinine 0.6 Est GFR (CKD-EPI)AfAm 104.07 Est GFR (CKD-EPI)NonAf 89.79 POC Glucometer 170 Random Glucose 133 H Calcium 8.1 L Magnesium 1.9 Total Bilirubin 0.4 AST 20 ALT 13 Alkaline Phosphatase 92 Total Protein 5.7 L Albumin 2.0 L Free T4 1.62 H Current Medications Generic Name Dose Route Start Last Admin Trade Name Freq PRN Reason Stop Dose Admin Acetaminophen 650 mg 08/22/19 02:04 08/25/19 21:17 Tylenol - PO 650 mg Q6H PRN Administration PAIN LEVEL 6-10 Atorvastatin Calcium 10 mg 08/22/19 22:00 08/26/19 21:13 Lipitor - PO 10 mg HS [facility]I Administration Calcium Carbonate/Cholecalciferol 2 tab 08/22/19 22:55 08/27/19 10:26 Os-Neeraj 500+D - PO 2 tab DAILY [facility] Administration Diltiazem HCl 300 mg 08/25/19 06:00 08/27/19 05:21 Cardizem Cd - PO 300 mg DAILY@0600 [facility] Administration Meropenem 1 gm/ Dextrose 100 mls @ 200 mls/hr 08/22/19 18:00 08/27/19 10:29 IVPB 200 mls/hr Q8H-IV [facility] Administration Insulin Aspart 1 vial 08/22/19 07:00 08/27/19 12:13 Novolog Vial Sliding Scale - SQ 2 units ACHS [facility] Administration Protocol Metoprolol Succinate 100 mg 08/23/19 15:45 08/27/19 10:26 Toprol Xl - PO 100 mg DAILY [facility] Administration Rivaroxaban 15 mg 08/23/19 10:45 08/27/19 10:29 Xarelto PO 15 mg DAILY [facility] Administration Home Medications Medication Instructions Recorded Aspirin 81 mg PO DAILY 06/15/19 Atorvastatin Ca [Lipitor] 10 mg PO HS 06/15/19 Calcium Carbonate [Oyster Shell 500 mg PO DAILY 06/15/19 Calcium] Cholecalciferol (Vitamin D3) 1,000 unit PO DAILY 06/15/19 [Vitamin D3] Glipizide/Metformin HCl 1 each PO BID 06/15/19 [Glipizide-Metformin 5-500 mg] Omeprazole 40 mg PO DAILY 06/15/19 Cyanocobalamin [Vitamin B12 -] 1 tab PO DAILY 08/22/19 Ferrous Sulfate 325 mg PO DAILY 08/22/19 Potassium Citrate [Potassium 10 meq PO TID 08/22/19 Citrate ER] Rivaroxaban [Xarelto] 15 mg PO DAILY 08/22/19 Sitagliptin Phosphate [Januvia] 50 mg PO DAILY 08/22/19 Tamsulosin HCl 0.4 mg PO DAILY 08/22/19 Diltiazem Cd [Cardizem Cd -] 300 mg PO DAILY@0600 30 Days #30 08/27/19 cap.cd.24h Ertapenem Sodium - 1 Gram [Invanz 1 gm IVPB DAILY #8 bag 08/27/19 (Pre-Docked)] Metoprolol Succinate [Toprol XL -] 100 mg PO DAILY 30 Days #30 08/27/19 tab.sr.24h ASSESSMENT AND PLAN: 73 year old female with history of HTN, HLD, DM 2, Chronic Anemia, presented with fever, weakness nausea, vomiting s/p L ureteral stent placmeent and stone removal. 1. Sepsis sec to UTI with Bacteremia Blood Cx - ESBL Leukocytosis and fever resolved. Currently being treated with Meropenem - for discharge on Ertapenem for 2 weeks total. ID following. PICC and discharge to [place] once authorization is obtained. 2. Atrial Fibrillation Started on metoprolol and Cardizem dose increased to 300mg Continue Xarelto. Out-patient Cardio/EP follow up for possible intervention. 3. DM 2 - resume Januvia, Glipizide/Metformin on discharge 4. HTN - controlled on Metoprolol and Cardizem. For out-patient follow up and slow re-introduction of ARB/ACEI. HCTZ discontinued. 5. HLD -Continue Statin 6. Iron Deficiency Anemia. FOBT neg. Iron Sat 3% s/p 2 units PRBCs. No evidence of acute blood loss. For GI referral as out-patient for further work-up/screening. Continue Ferrous Sulfate 7. Elevated T4, TSH pending. Endocrinology referral as out-patient. DVT Px - Xarelto
--- NOTE | 2019-08-27 15:50 | DS ---
Physical Exam: SUBJECTIVE: Patient seen and examined. No acute events overnight. Patient without complaints. Explained to patient the need for a PICC line and continuing abx. Spoke with patient's niece as well regarding the plan for discharge. OBJECTIVE: Vital Signs Period Temp Pulse Resp BP Sys/Ho Pulse Ox Last 24 Hr 98.2 F-98.7 F 91-97 17-20 113-139/56-80 94-94 PHYSICAL EXAM GENERAL: The patient is awake, alert, and fully oriented, in no acute distress. HEAD: Normocephalic, atraumatic. EYES: EOMI, no scleral icterus ENT: MMM NECK: Trachea midline, supple LUNGS: Breath sounds equal, clear to auscultation bilaterally. No wheezes, no crackles. No accessory muscle use. HEART: RRR, no murmur noted ABDOMEN: Soft, nondistended, nontender, normoactive bowel sounds, no guarding, no rebound EXTREMITIES: 2+ radial, dorsalis pedis pulses bilaterally. Warm, well-perfused. No peripheral edema noted NEUROLOGICAL: Normal speech, gait not observed. No facial droop. Sensation intact throughout PSYCH: Normal mood, normal affect SKIN: Warm, dry LABS Laboratory Results - last 24 hr 08/26/19 08/26/19 08/27/19 17:03 21:12 05:35 Sodium Potassium Chloride Carbon Dioxide Anion Gap BUN Creatinine Est GFR (CKD-EPI)AfAm Est GFR (CKD-EPI)NonAf POC Glucometer 156 178 135 Random Glucose Calcium Magnesium Total Bilirubin AST ALT Alkaline Phosphatase Total Protein Albumin Free T4 08/27/19 08/27/19 06:01 11:42 Sodium 137 Potassium 3.5 Chloride 98 Carbon Dioxide 34 H Anion Gap 5 L BUN 7.2 Creatinine 0.6 Est GFR (CKD-EPI)AfAm 104.07 Est GFR (CKD-EPI)NonAf 89.79 POC Glucometer 170 Random Glucose 133 H Calcium 8.1 L Magnesium 1.9 Total Bilirubin 0.4 AST 20 ALT 13 Alkaline Phosphatase 92 Total Protein 5.7 L Albumin 2.0 L Free T4 1.62 H HOSPITAL COURSE: Date of Admission:08/21/19 Date of Discharge: 08/27/19 Patient is a 73 year old female with history of hypertension, hyperlipidemia, diabetes mellitus, anemia admitted after fever, weakness nausea, vomiting after recent instrumentation by Urology for kidney stone removal and stenting. Patient was treated for sepsis secondary to UTI and ESBL E. Coli bacteremia with Meropenem. Abdomen and pelvis CT abdomen pelvis revealed left nephrolithasis with mild to moderate hydronephrosis without obvious obstruction , air was noted within the left urinary system which may have been due to recent procedure. Patient was seen by Dr. Soriano, her urologist. On discharge PICC line placed for continuing abx, patient needs 14 days total of abx, discharged on Ertapenem. Patient found to have afib while admitted, she was tachycardic to the 180s. Patient seen by Cardiology and started on Cardizem 300mg daily and Metoprolol 100mg daily to achieve rate control. Patient on Xarelto for anticoagulation. Patient to follow up with cardiology for possible ablation as outpatient. Found to have microcytic anemia while admitted, stool occult test was negative and she was given 2units PRBC with improvement. No signs of bleeding noted. Patient was Telmisartan-HCTZ and Atenolol at home, ordered to stop these medications as she was started on Cardizem and Metoprolol while here. Recommended to follow up with her PCP regarding restarting LESIA-i/ ARB after discharge. Discharged to [facility] for continue care, abx treatment with PICC line. Free T4 was noted to be elevated, patient not on synthroid, recommended to follow up with endocrinology outpatient for further workup. Recommended to follow up with Cardiology, PCP, GI. Stable for discharge at this time. Minutes to complete discharge: 36 Discharge Summary Problems reviewed: Yes Reason For Visit: ACUTE KIDNEY INJURY, STATUS POST PLACEMENT OF Current Active Problems DELBERT (acute kidney injury) (Acute) Acute electrocardiogram changes (Acute) Leukocytosis (Acute) Malaise and fatigue (Acute) PAF (paroxysmal atrial fibrillation) (Acute) Condition: Improved - Instructions Diet, Activity, Other Instructions: You presented to the hospital due to nausea, vomiting, and weakness after having stenting completed by Urology as outpatient. You were diagnosed with a UTI and were started on antibiotics with improvement in your symptoms. While admitted you were diagnosed with Afib and were seen by Cardiology who started you on medications to control your heart rate. You will continue to take these medications after being discharged. You were also noted to have anemia while admitted and were transfused 2 units of blood with improvement in your blood count. We recommend following up with gastroenterology after discharge for further workup of your anemia. You had a senior care IV line placed for continuing antibiotics after discharge. Medication Changes: 1. START taking Ertapenem 1g daily for continuing treatment of your urinary tract infection. Your last dose will be on 07/05. 2. START taking Cardizem 300mg daily for better control of your heart rate blood pressure. 3. START taking Metoprolol 100mg daily for better control of your heart rate and blood pressure. 4. STOP taking Atenolol, you were started on other medications to control your blood pressure and heart rate. 5. STOP taking Telmisartan-HCTZ, you were started on other medications to control your blood pressure and heart rate. We recommend following up with your primary care doctor and discussing restarting these medications. Follow up with the following physicians: 1. Please follow up with your primary care provider, Dr. Knowles, within 3-5 days of discharge for further management of your medical conditions and to discuss the medications you were started on while in the hospital. 2. Recommended to follow up with your supervisor paste mixing within 1 week of discharge for further workup of your heart disease. If you do not have a supervisor paste mixing, a referral has been included for you for the supervisor paste mixing you were seen by while in the hospital. 3. Recommended to follow up with gastroenterology within 1-2 weeks of discharge for further workup of your anemia. If you do not have a customer advisor a referral for one has been included for you. 4. Recommended to follow up with Endocrinology within 1-2 weeks of discharge regarding your abnormal thyroid hormone levels. A referral has been provided for you for Dr. Lambert, Endocinology. Activity and Diet 1. You are being discharged to [facility] for continuing care and to receive your IV antibiotics. 2. Please monitor your diet as you need to consume a diet low in salt, fat, and sugars. Continue all your other medications as prescribed Please return to the ER if you have any signs or symptoms of chest pain, shortness of breath, uncontrollable fever, chills, nausea, vomiting, numbness, tingling, or weakness in any part of your body, changes in vision, or slurred speech. Please return to the ER if symptoms persist, worsen, or new symptoms arise. Referrals: Sultana Vasquez MD [Staff Physician] - Gustavo Knowles MD [Primary Care Provider] - Prasanna Nolan MD [Staff Physician] - Anthony Lambert MD [Staff Physician] - Disposition: [facility] - Home Medications Comprehensive Discharge Medication List: Ambulatory Orders Aspirin 81 mg PO DAILY 06/15/19 Atorvastatin Ca [Lipitor] 10 mg PO HS 06/15/19 Calcium Carbonate [Oyster Shell Calcium] 500 mg PO DAILY 06/15/19 Cholecalciferol (Vitamin D3) [Vitamin D3] 1,000 unit PO DAILY 06/15/19 Glipizide/Metformin HCl [Glipizide-Metformin 5-500 mg] 1 each PO BID 06/15/19 Omeprazole 40 mg PO DAILY 06/15/19 Cyanocobalamin [Vitamin B12 -] 1 tab PO DAILY 08/22/19 Ferrous Sulfate 325 mg PO DAILY 08/22/19 Potassium Citrate [Potassium Citrate ER] 10 meq PO TID 08/22/19 Rivaroxaban [Xarelto] 15 mg PO DAILY 08/22/19 Sitagliptin Phosphate [Januvia] 50 mg PO DAILY 08/22/19 Tamsulosin HCl 0.4 mg PO DAILY 08/22/19 Diltiazem Cd [Cardizem Cd -] 300 mg PO DAILY@0600 30 Days #30 cap.cd.24h Ertapenem Sodium - 1 Gram [Invanz (Pre-Docked)] 1 gm IVPB DAILY #8 bag 08/27/19 Metoprolol Succinate [Toprol XL -] 100 mg PO DAILY 30 Days #30 tab.sr.24h This patient is new to me today: No Emergency Visit: Yes ED Registration Date: 08/21/19 Care time: The patient presented to the Emergency Department on the above date and was hospitalized for further evaluation of their emergent condition. Critical Care patient: No - Discharge Referral Referred to [facility] Med [facility] No ATTENDING PHYSICIAN STATEMENT I saw and evaluated the patient. I reviewed the resident's note and discussed the case with the resident. I agree with the resident's findings and plan as documented. SUBJECTIVE: OBJECTIVE: ASSESSMENT AND PLAN:
[2019-08-27] MEDS: ATORVASTATIN CA 10 MG TABLET (FP) PO SCH (22:53)
[2019-08-28] MEDS ORDERED: MEROPENEM 1 GM VIAL (RESTRICTED TO ID) IVPB ONE ×2 (01:31→09:41)
[2019-08-28] MEDS ORDERED: DEXTROSE 5%-WATER 100 ML IVPB ONE ×2 (01:32→09:41)
[2019-08-28] MEDS: MEROPENEM 1 GM in DEXTROSE 5%-WATER 100 ML IVPB SCH ×2 (01:39→09:44)
[2019-08-28] MEDS: INSULIN SLIDING SCALE (NOVOLOG) 1 VIAL SQ SCH ×2 (06:58→12:02)
[2019-08-28] MEDS ORDERED: PT OWN MED DRAWER 7, Y5N ONE (09:41)
[2019-08-28] MEDS: CALCIUM 500MG/VIT-D 200 UNITS COMBO TABLET (FP) PO SCH (09:46)
[2019-08-28] MEDS: RIVAROXABAN 15 MG TABLET PO SCH (09:46)
--- NOTE | 2019-08-28 09:54 | EKG ---
Test Reason : Blood Pressure : / mmHG Vent. Rate : 100 BPM Atrial Rate : 100 BPM P-R Int : 150 ms QRS Dur : 090 ms QT Int : 374 ms P-R-T Axes : 012 -11 011 degrees QTc Int : 482 ms NORMAL SINUS RHYTHM MINIMAL VOLTAGE CRITERIA FOR LVH, MAY BE NORMAL VARIANT POSSIBLE ANTERIOR INFARCT , AGE UNDETERMINED ABNORMAL ECG WHEN COMPARED WITH ECG OF 24-AUG-2019 10:01, SINUS RHYTHM HAS REPLACED ATRIAL FIBRILLATION T WAVE AMPLITUDE HAS DECREASED IN ANTEROLATERAL LEADS Confirmed by PRIYANKA MEDLEY MD ([id number]) on 08/28/2019 9:54:10 AM Referred By: RAJ Confirmed By:PRIYANKA MEDLEY MD
--- NOTE | 2019-08-28 10:10 | PN ---
Progress Note, Physician History of Present Illness: Mary Martínez is a 73yo woman with a PMH of anemia NIDDM, HTN, HLD, prior admission for sepsis secondary to infected kidney stone c/b development of a- fib and SVT, one day s/p left kidney stone removal (exact procedure unknown) and ureteral stent placement who was brought to the ED with multiple complaints including two months of frequent vomiting, generalized weakness, altered mental status, chest pain, and that her ureteral stent "fell out" today. Ms Martínez is speaking only minimally, but her niece is present to provide information. The niece says that the patient has been unable to keep down anything for several months, which they attributed to the kidney stones. However , she had a stent placed in June, and then a procedure to remove the stone yesterday at [facility]. The niece says that the patient had a high fever following her procedure yesterday but was discharged home with a normal temperature. She has continued to feel unwell with increased nausea/vomiting since yesterday. She also complained of chest pain earlier today. The neice also note that the patient has appeared pale and has "not been herself." Reportedly, Ms Martínez is usually very talkative, but she has hardly been saying anyting today. She has also appeared very fatigued. Other than the fever post-procedure yesterday, the patient has had no known recent fevers/chills, change in frequency of bowel movements, urinary symptoms, severe abdominal pain, difficulty breathing, lightheadedness, or diaphoresis. She reports having a daily bowl movement and voids 3-4 times per day. She denies bilious vomiting or hematemesis. She has not ever been evaluated by GI. Currently, she denies any continued chest pain, nausea, vomiting, or difficulty breathing. - Current Medication List Current Medications: Active Medications Acetaminophen (Tylenol -) 650 mg PO Q6H PRN PRN Reason: PAIN LEVEL 6-10 Last Admin: 08/25/19 21:17 Dose: 650 mg Atorvastatin Calcium (Lipitor -) 10 mg PO HS [facility] Last Admin: 08/27/19 22:53 Dose: 10 mg Calcium Carbonate/Cholecalciferol (Os-Neeraj 500+D -) 2 tab PO DAILY [facility] Last Admin: 08/28/19 09:46 Dose: 2 tab Diltiazem HCl (Cardizem Cd -) 300 mg PO DAILY@0600 [facility] Last Admin: 08/28/19 06:59 Dose: 300 mg Meropenem 1 gm/ Dextrose 100 mls @ 200 mls/hr IVPB Q8H-IV [facility] Last Admin: 08/28/19 09:44 Dose: 200 mls/hr Insulin Aspart (Novolog Vial Sliding Scale -) 1 vial SQ ACHS [facility]; Protocol Last Admin: 08/28/19 06:58 Dose: 2 units Metoprolol Succinate (Toprol Xl -) 100 mg PO DAILY [facility] Last Admin: 08/28/19 09:46 Dose: 100 mg Rivaroxaban (Xarelto) 15 mg PO DAILY [facility] Last Admin: 08/28/19 09:46 Dose: 15 mg - Objective Vital Signs: Vital Signs Temperature 99.2 F 08/28/19 09:49 Pulse Rate 104 H 08/28/19 09:49 Respiratory Rate 20 08/28/19 09:49 Blood Pressure 146/85 08/28/19 09:49 O2 Sat by Pulse Oximetry (%) 94 L 08/27/19 09:00 Eyes: Yes: WNL, Conjunctiva Clear, EOM Intact HENT: Yes: WNL, Atraumatic, Normocephalic Neck: Yes: WNL, Supple, Trachea Midline Cardiovascular: Yes: WNL, Regular Rate and Rhythm Respiratory: Yes: WNL, Regular, CTA Bilaterally Gastrointestinal: Yes: WNL, Normal Bowel Sounds Genitourinary: Yes: WNL Musculoskeletal: Yes: WNL Extremities: Yes: WNL Edema: No Integumentary: Yes: WNL Neurological: Yes: WNL, Alert, Oriented ...Motor Strength: WNL Psychiatric: Yes: WNL Labs: CBC, BMP 08/26/19 05:05 08/27/19 06:01 INR, PTT INR 1.46 (0.83-1.09) H 08/22/19 09:10 Problem List - Problems (1) DELBERT (acute kidney injury) Code(s): N17.9 - ACUTE KIDNEY FAILURE, UNSPECIFIED (2) Acute electrocardiogram changes Code(s): R94.31 - ABNORMAL ELECTROCARDIOGRAM [ECG] [EKG] (3) Leukocytosis Code(s): D72.829 - ELEVATED WHITE BLOOD CELL COUNT, UNSPECIFIED Qualifiers: Leukocytosis type: unspecified Qualified Code(s): D72.829 - Elevated white blood cell count, unspecified (4) Malaise and fatigue Code(s): R53.81 - OTHER MALAISE; R53.83 - OTHER FATIGUE (5) Nausea and vomiting Code(s): R11.2 - NAUSEA WITH VOMITING, UNSPECIFIED Qualifiers: Vomiting type: unspecified Vomiting Intractability: non-intractable Qualified Code(s): R11.2 - Nausea with vomiting, unspecified (6) Anemia Code(s): D64.9 - ANEMIA, UNSPECIFIED (7) HTN (hypertension) Code(s): I10 - ESSENTIAL (PRIMARY) HYPERTENSION (8) Hypoalbuminemia Code(s): E88.09 - OTH DISORDERS OF PLASMA-PROTEIN METABOLISM, NEC (9) PSVT (paroxysmal supraventricular tachycardia) Code(s): I47.1 - SUPRAVENTRICULAR TACHYCARDIA (10) S/P ureteral stent placement Code(s): Z96.0 - PRESENCE OF UROGENITAL IMPLANTS (11) Sepsis Code(s): A41.9 - SEPSIS, UNSPECIFIED ORGANISM Qualifiers: Sepsis type: sepsis due to unspecified organism Sepsis acute organ dysfunction status: unspecified Qualified Code(s): A41.9 - Sepsis, unspecified organism Assessment/Plan - Problems (1) PAF (paroxysmal atrial fibrillation) Assessment/Plan: On metoprolol ER and diltiazem ER. F/u HR and BP. On telemetry. Keep K+ 4.0-4.5 Keep Mg 2.02.4 Keep PO4 2.5-4.9. F/u EKG. Code(s): I48.0 - PAROXYSMAL ATRIAL FIBRILLATION (2) Leukocytosis Assessment/Plan: resolved. On IV antibiotics. Code(s): D72.829 - ELEVATED WHITE BLOOD CELL COUNT, UNSPECIFIED Qualifiers: Leukocytosis type: unspecified Qualified Code(s): D72.829 - Elevated white blood cell count, unspecified (3) Anemia Assessment/Plan: stable Hb post-PRBCs Code(s): D64.9 - ANEMIA, UNSPECIFIED (4) HTN (hypertension) Assessment/Plan: on metoprolol and diltiazem. BP well-controlled. Code(s): I10 - ESSENTIAL (PRIMARY) HYPERTENSION (5) PSVT (paroxysmal supraventricular tachycardia) Assessment/Plan: On metoprolol and diltiazem. Maintain hydration. Keep electrolytes WNL (Please see under "PAF"). Code(s): I47.1 - SUPRAVENTRICULAR TACHYCARDIA (6) S/P ureteral stent placement Code(s): Z96.0 - PRESENCE OF UROGENITAL IMPLANTS (7) Sepsis Code(s): A41.9 - SEPSIS, UNSPECIFIED ORGANISM Qualifiers: Sepsis type: sepsis due to unspecified organism Sepsis acute organ dysfunction status: unspecified Qualified Code(s): A41.9 - Sepsis, unspecified organism
[2019-08-28] MEDS ORDERED: TRIMETHOBENZAMIDE HCL 200MG/2ML INJ IM ONE (13:00)
--- NOTE | 2019-08-28 13:05 | PN ---
Teaching Attending Note Name of Resident: Deidre Gill ATTENDING PHYSICIAN STATEMENT I saw and evaluated the patient. I reviewed the resident's note and discussed the case with the resident. I agree with the resident's findings and plan as documented. SUBJECTIVE: Feels better, no complaints. No fever/chills. OBJECTIVE: Afebrile, Hemodynamically Stable. Last Vital Signs Temp Pulse Resp BP Pulse Ox 99.2 F 104 H 20 146/85 95 08/28/19 09:49 08/28/19 09:49 08/28/19 09:49 08/28/19 09:49 08/28/19 09:00 Heart - S1, S2, RRR Lungs - good air entry, few crackles at base Abdomen - Soft, non-tender. Bowel Sounds normal. Extremities - no calf tenderness. Neuro - AAO x 3. Moving all extremities. Laboratory Results - last 24 hr 08/27/19 08/27/19 08/28/19 06:01 22:52 06:57 Sodium 137 Potassium 3.5 Chloride 98 Carbon Dioxide 34 H Anion Gap 5 L BUN 7.2 Creatinine 0.6 Est GFR (CKD-EPI)AfAm 104.07 Est GFR (CKD-EPI)NonAf 89.79 POC Glucometer 130 169 Random Glucose 133 H Calcium 8.1 L Magnesium 1.9 Total Bilirubin 0.4 AST 20 ALT 13 Alkaline Phosphatase 92 Total Protein 5.7 L Albumin 2.0 L TSH 0.92 Free T4 1.62 H 08/28/19 11:59 Sodium Potassium Chloride Carbon Dioxide Anion Gap BUN Creatinine Est GFR (CKD-EPI)AfAm Est GFR (CKD-EPI)NonAf POC Glucometer 178 Random Glucose Calcium Magnesium Total Bilirubin AST ALT Alkaline Phosphatase Total Protein Albumin TSH Free T4 Current Medications Generic Name Dose Route Start Last Admin Trade Name Freq PRN Reason Stop Dose Admin Acetaminophen 650 mg 08/22/19 02:04 08/25/19 21:17 Tylenol - PO 650 mg Q6H PRN Administration PAIN LEVEL 6-10 Atorvastatin Calcium 10 mg 08/22/19 22:00 08/27/19 22:53 Lipitor - PO 10 mg HS [facility] Administration Calcium Carbonate/Cholecalciferol 2 tab 08/22/19 22:55 08/28/19 09:46 Os-Neeraj 500+D - PO 2 tab DAILY [facility] Administration Diltiazem HCl 300 mg 08/25/19 06:00 08/28/19 06:59 Cardizem Cd - PO 300 mg DAILY@0600 [facility] Administration Meropenem 1 gm/ Dextrose 100 mls @ 200 mls/hr 08/22/19 18:00 08/28/19 09:44 IVPB 200 mls/hr Q8H-IV [facility] Administration Insulin Aspart 1 vial 08/22/19 07:00 08/28/19 12:02 Novolog Vial Sliding Scale - SQ 2 units ACHS [facility] Administration Protocol Metoprolol Succinate 100 mg 08/23/19 15:45 08/28/19 09:46 Toprol Xl - PO 100 mg DAILY [facility] Administration Rivaroxaban 15 mg 08/23/19 10:45 08/28/19 09:46 Xarelto PO 15 mg DAILY [facility] Administration Trimethobenzamide HCl 200 mg 08/28/19 13:00 Tigan Injection - IM 08/28/19 13:01 ONCE ONE Home Medications Medication Instructions Recorded Aspirin 81 mg PO DAILY 06/15/19 Atorvastatin Ca [Lipitor] 10 mg PO HS 06/15/19 Calcium Carbonate [Oyster Shell 500 mg PO DAILY 06/15/19 Calcium] Cholecalciferol (Vitamin D3) 1,000 unit PO DAILY 06/15/19 [Vitamin D3] Glipizide/Metformin HCl 1 each PO BID 06/15/19 [Glipizide-Metformin 5-500 mg] Omeprazole 40 mg PO DAILY 06/15/19 Cyanocobalamin [Vitamin B12 -] 1 tab PO DAILY 08/22/19 Ferrous Sulfate 325 mg PO DAILY 08/22/19 Potassium Citrate [Potassium 10 meq PO TID 08/22/19 Citrate ER] Rivaroxaban [Xarelto] 15 mg PO DAILY 08/22/19 Sitagliptin Phosphate [Januvia] 50 mg PO DAILY 08/22/19 Tamsulosin HCl 0.4 mg PO DAILY 08/22/19 Diltiazem Cd [Cardizem Cd -] 300 mg PO DAILY@0600 30 Days #30 08/27/19 cap.cd.24h Ertapenem Sodium - 1 Gram [Invanz 1 gm IVPB DAILY #8 bag 08/27/19 (Pre-Docked)] Metoprolol Succinate [Toprol XL -] 100 mg PO DAILY 30 Days #30 08/27/19 tab.sr.24h ASSESSMENT AND PLAN: 73 year old female with history of HTN, HLD, DM 2, Chronic Anemia, presented with fever, weakness nausea, vomiting s/p L ureteral stent placmeent and stone removal. 1. Sepsis sec to UTI with Bacteremia Blood Cx - ESBL Leukocytosis and fever resolved. Currently being treated with Meropenem - for discharge on Ertapenem for 2 weeks total. ID following. PICC placed. Denies authorization for discharge to SNF - for discharge home once authorization is obtained. 2. Atrial Fibrillation Started on metoprolol and Cardizem dose up-titrated to 300mg Continue Xarelto. Out-patient Cardio/EP follow up for possible intervention. 3. DM 2 - resume Januvia, Glipizide/Metformin on discharge 4. HTN - controlled on Metoprolol and Cardizem. For out-patient follow up and slow re-introduction of ARB/ACEI. HCTZ discontinued. 5. HLD - Continue Statin 6. Iron Deficiency Anemia. FOBT neg. Iron Sat 3% s/p 2 units PRBCs. No evidence of acute blood loss. For GI referral as out-patient for further work-up/screening. Continue Ferrous Sulfate 7. Elevated T4, TSH pending. Endocrinology referral as out-patient. DVT Px - Xarelto
[2019-08-28 15:04] VITALS: BP 134/61; PULSE 102; TEMP 98.1
--- NOTE | 2019-08-28 16:57 | PN ---
Physical Exam: SUBJECTIVE: Patient seen and examined. No acute events overnight. Patient was not discharged yesterday as she was waiting for auth for SNF placement. Auth denied, patient will return to hospital daily for continuing abx treatment. OBJECTIVE: Vital Signs Period Temp Pulse Resp BP Sys/Ho Pulse Ox Last 24 Hr 98.0 F-99.2 F 93-104 16-20 125-148/61-85 95 GENERAL: The patient is awake, alert, and fully oriented, in no acute distress. HEAD: Normocephalic, atraumatic. EYES: EOMI, no scleral icterus ENT: dry mucous membranes NECK: Trachea midline, supple LUNGS: Breath sounds equal, clear to auscultation bilaterally. No wheezes, no crackles. No accessory muscle use. HEART: RRR, no murmur noted ABDOMEN: Soft, nondistended, nontender, normoactive bowel sounds, no guarding, no rebound EXTREMITIES: 2+ radial, dorsalis pedis pulses bilaterally. Warm, well-perfused. No lower extremity edema bilaterally. PICC line in place on RUE. NEUROLOGICAL: Normal speech, gait not observed. No facial droop. Sensation intact throughout PSYCH: Normal mood, normal affect SKIN: Warm, dry. Laboratory Results - last 24 hr 08/27/19 08/28/19 08/28/19 22:52 06:57 11:59 POC Glucometer 130 169 178 Active Medications Generic Name Dose Route Start Last Admin Trade Name Freq PRN Reason Stop Dose Admin Acetaminophen 650 mg 08/22/19 02:04 08/25/19 21:17 Tylenol - PO 650 mg Q6H PRN Administration PAIN LEVEL 6-10 Atorvastatin Calcium 10 mg 08/22/19 22:00 08/27/19 22:53 Lipitor - PO 10 mg HS [facility] Administration Calcium Carbonate/Cholecalciferol 2 tab 08/22/19 22:55 08/28/19 09:46 Os-Neeraj 500+D - PO 2 tab DAILY [facility] Administration Diltiazem HCl 300 mg 08/25/19 06:00 08/28/19 06:59 Cardizem Cd - PO 300 mg DAILY@0600 [facility] Administration Meropenem 1 gm/ Dextrose 100 mls @ 200 mls/hr 08/22/19 18:00 08/28/19 09:44 IVPB 200 mls/hr Q8H-IV [facility] Administration Insulin Aspart 1 vial 08/22/19 07:00 08/28/19 12:02 Novolog Vial Sliding Scale - SQ 2 units ACHS [facility] Administration Protocol Metoprolol Succinate 100 mg 08/23/19 15:45 08/28/19 09:46 Toprol Xl - PO 100 mg DAILY [facility] Administration Rivaroxaban 15 mg 08/23/19 10:45 08/28/19 09:46 Xarelto PO 15 mg DAILY [facility] Administration ASSESSMENT/PLAN: Patient is a 73 year old female with history of hypertension, hyperlipidemia, diabetes mellitus, anemia admitted after fever, weakness nausea, vomiting after instrumentation for kidney stone removal and stent placement. #Sepsis secondary to UTI, with ESBL E. coli bacteremia - Leukocytosis resolved. Afebrile. continue to monitor - Abdomen and pelvis CT abdomen pelvis revealed left nephrolithasis with mild to moderate hydronephrosis without obvious obstruction, air noted within the left urinary system. - Ertapenem, last dose on 09/07. PICC line placed. - Blood and urine culture both ESBL positive. - Repeat urine culture positive for Enterococcus Faecium, however only b/w 10k- 20k colonies. - Urology consult (Dr. Bustamante) appreciated - ID consult (Dr. Honeycutt) appreciated - Isolation precautions for ESBL history #Paroxysmal Afib, PSVT - Cardiology consult (Dr. Mishra) appreciated - Cardizem CD increased to 300mg PO - Started on Metoprolol ER 100 QD - Xarelto 15mg PO daily - EP evaluation for possible ablation once stable #Anemia with microcytosis no hx of GI visit or colonoscopy - Stool occult test negative. Likely secondary to iron deficiency anemia. Follow anemia workup. - S/p 2 unit PRBCs so far this admission; Hgb stable #Diabetes mellitus, type II - Insulin slidng scale ACHS - Fingerstick blood glucose monitoring ACHS #Hypertenison - Cardizem 300 PO daily - Metroprolol 100 QD #Hyperlipidemia - Atorvastatin 10mg HS #Prophylaxis - Xarelto 15mg PO daily #FEN - No IV fluids indicated. - monitor and replace lytes as needed - Diabetic/Sodium controlled diet #Disposition - PICC line placed - Please see discharge summary from 08/27 for further information. Visit type - Emergency Visit Emergency Visit: Yes ED Registration Date: 08/21/19 Care time: The patient presented to the Emergency Department on the above date and was hospitalized for further evaluation of their emergent condition. - New Patient This patient is new to me today: No - Critical Care Critical Care patient: No ATTENDING PHYSICIAN STATEMENT I saw and evaluated the patient. I reviewed the resident's note and discussed the case with the resident. I agree with the resident's findings and plan as documented. SUBJECTIVE: OBJECTIVE: ASSESSMENT AND PLAN:
== END 2019-08-28 18:46 | disposition home or self-care (01) | DRG 872 ==
LOC: JER 19:16 → JERBED 22:19 → J4S 08-22 03:06
PROVIDERS: ADMIT Internal Medicine
PROC: 02HV33Z Insertion of Infusion Device into Superior Vena Cava, Percutaneous Approach (ICD-10-PCS; principal; 2019-08-27)
DX: A41.50 Gram-negative sepsis, unspecified (principal); N17.9 Acute kidney failure, unspecified; N13.30 Unspecified hydronephrosis; E46 Unspecified protein-calorie malnutrition; I47.1 Supraventricular tachycardia; E87.1 Hypo-osmolality and hyponatremia; Z16.12 Extended spectrum beta lactamase (ESBL) resistance; E87.6 Hypokalemia; E11.65 Type 2 diabetes mellitus with hyperglycemia; E83.42 Hypomagnesemia; D50.9 Iron deficiency anemia, unspecified; E88.09 Other disorders of plasma-protein metabolism, not elsewhere classified; D72.829 Elevated white blood cell count, unspecified; R11.2 Nausea with vomiting, unspecified; R53.83 Other fatigue; R53.81 Other malaise; N20.0 Calculus of kidney; I48.0 Paroxysmal atrial fibrillation; E83.39 Other disorders of phosphorus metabolism; R00.0 Tachycardia, unspecified; E78.5 Hyperlipidemia, unspecified
CPT/HCPCS: 36415; 36430; 36511; 36569; 71045-TC-FY; 74176-TC; 77001-TC-FY; 80048; 80053; 81003; 82248; 82272; 82550; 82607; 82728; 82746; 82803; 82962; 83036; 83540; 83550; 83605; 83735; 84100; 84439; 84443; 84484; 85025; 85027; 85044; 85610; 86078; 86850; 86900; 86901; 86922; 87040; 87086; 87186; 93005; 93010; 93306-TC; 97116-GP; 97161-GP; 99284-25; C1751; J7030; P9038; P9058

== ENCOUNTER 2019-08-29 09:54 | Day surgery (SDC) | payer OTHER ==
[2019-08-29] MEDS ORDERED: ERTAPENEM SODIUM 1 GM in SODIUM CHLORIDE 50 ML IVPB ONE (10:00)
[2019-08-29 10:37] VITALS: TEMP 99
[2019-08-29 11:33] VITALS: BP 139/87; PULSE 106
== END 2019-08-29 11:50 | disposition home or self-care (01) ==
LOC: JINFUSION 09:54
PROVIDERS: ATTEND Internal Medicine
DX: A41.50 Gram-negative sepsis, unspecified (principal)
CPT/HCPCS: 96365

== ENCOUNTER 2019-08-30 09:55 | Day surgery (SDC) | payer OTHER ==
[~2019-08-30 09:55] MED LIST: ERTAPENEM SODIUM 1 GM in SODIUM CHLORIDE 50 ML IVPB ONE
[2019-08-30 10:51] VITALS: TEMP 98
[2019-08-30 11:14] VITALS: BP 135/63
[2019-08-30 11:16] VITALS: PULSE 95
== END 2019-08-30 11:30 | disposition home or self-care (01) ==
LOC: JINFUSION 09:55
PROVIDERS: ATTEND Internal Medicine
DX: A41.50 Gram-negative sepsis, unspecified (principal)
CPT/HCPCS: 96365

== ENCOUNTER 2019-08-31 09:45 | Day surgery (SDC) | payer OTHER ==
[2019-08-31] MEDS ORDERED: ERTAPENEM SODIUM 1 GM in SODIUM CHLORIDE 50 ML IVPB ONE (11:00)
[2019-08-31 13:21] VITALS: BP 130/69; PULSE 78; TEMP 97.9
== END 2019-08-31 11:50 | disposition home or self-care (01) ==
LOC: JINFUSION 09:45 → J7W 09:47 → JINFUSION 11:50
PROVIDERS: ATTEND Internal Medicine
DX: A41.50 Gram-negative sepsis, unspecified (principal)
CPT/HCPCS: 96365

== ENCOUNTER 2019-09-01 09:42 | Day surgery (SDC) | payer OTHER ==
[2019-09-01 10:19] VITALS: TEMP 98.2
[2019-09-01] MEDS ORDERED: ERTAPENEM SODIUM 1 GM in SODIUM CHLORIDE 50 ML IVPB ONE (11:00)
[2019-09-01 11:53] VITALS: BP 133/98; PULSE 105
== END 2019-09-01 11:54 | disposition home or self-care (01) ==
LOC: J7W 09:42 → JINFUSION 09:42
PROVIDERS: ATTEND Internal Medicine
DX: A41.50 Gram-negative sepsis, unspecified (principal)
CPT/HCPCS: 96365

== ENCOUNTER 2019-09-02 09:47 | Day surgery (SDC) | payer OTHER ==
[2019-09-02] MEDS ORDERED: ERTAPENEM SODIUM 1 GM in SODIUM CHLORIDE 50 ML IVPB ONE (10:30)
[2019-09-02 10:55] VITALS: BP 129/61; PULSE 104; TEMP 98.1
[2019-09-02 11:07] LABS: HEMATOCRIT 31.5 % (32.4-45.2); HEMOGLOBIN 10.5 GM/dL (10.7-15.3); MCH 26.6 pg (25.7-33.7); MCHC 33.2 g/dl (32.0-36.0); MEAN CELL VOLUME 80.1 fl (80-96); MEAN PLT VOLUME 6.6 fl (7.5-11.1); PLATELET COUNT 494 K/MM3 (134-434); RBC 3.93 M/mm3 (3.60-5.2); RDW 19.1 % (11.6-15.6); WHITE BLOOD COUNT 9.7 K/mm3 (4.0-10.0)
[2019-09-02 11:35] LABS: ALBUMIN 2.4 g/dl (3.4-5.0); BILIRUBIN,TOTAL 0.4 mg/dL (0.2-1); BLOOD UREA NITROGEN 9.1 mg/dL (7-18); CALCIUM 9.1 mg/dL (8.5-10.1); POTASSIUM 4.1 mmol/L (3.5-5.1); TOT PROT 6.9 g/dl (6.4-8.2)
== END 2019-09-02 12:06 | disposition home or self-care (01) ==
LOC: JINFUSION 09:47 → J7W 09:48 → JINFUSION 12:06
PROVIDERS: ATTEND Internal Medicine
DX: A41.50 Gram-negative sepsis, unspecified (principal)
CPT/HCPCS: 36415; 80053; 85027; 96365

== ENCOUNTER 2019-09-03 09:54 | Day surgery (SDC) | payer OTHER ==
[2019-09-03] MEDS ORDERED: ERTAPENEM SODIUM 1 GM in SODIUM CHLORIDE 100 ML IVPB ONE (10:45)
[2019-09-03] MEDS ORDERED: ERTAPENEM SODIUM 1 GM VIAL ONE (11:17)
[2019-09-03] MEDS ORDERED: SODIUM CHLORIDE 100 ML IVPB ONE (11:17)
[2019-09-03 11:59] VITALS: PULSE 96; TEMP 97.8
[2019-09-03 14:33] VITALS: BP 123/68
== END 2019-09-03 12:40 | disposition home or self-care (01) ==
LOC: JINFUSION 09:54
PROVIDERS: ATTEND Internal Medicine
DX: A41.50 Gram-negative sepsis, unspecified (principal)
CPT/HCPCS: 96365

== ENCOUNTER 2019-09-04 09:38 | Day surgery (SDC) | payer OTHER ==
[2019-09-04] MEDS ORDERED: ERTAPENEM SODIUM 1 GM VIAL ONE (09:51)
[2019-09-04] MEDS ORDERED: SODIUM CHLORIDE 100 ML IVPB ONE (09:53)
[2019-09-04] MEDS ORDERED: ERTAPENEM SODIUM 1 GM in SODIUM CHLORIDE 100 ML IVPB ONE (10:00)
[2019-09-04 10:37] VITALS: BP 134/70; PULSE 97; TEMP 97.8
== END 2019-09-04 10:39 | disposition home or self-care (01) ==
LOC: JINFUSION 09:38
PROVIDERS: ATTEND Internal Medicine
DX: A41.50 Gram-negative sepsis, unspecified (principal)
CPT/HCPCS: 96365; 96367

== ENCOUNTER 2019-09-05 09:52 | Day surgery (SDC) | payer OTHER ==
[2019-09-05] MEDS ORDERED: ERTAPENEM SODIUM 1 GM in SODIUM CHLORIDE 100 ML IVPB ONE (10:00)
[2019-09-05 10:25] VITALS: TEMP 98
[2019-09-05] MEDS ORDERED: SODIUM CHLORIDE 100 ML IVPB ONE (10:28)
[2019-09-05] MEDS ORDERED: ERTAPENEM SODIUM 1 GM VIAL ONE (10:28)
[2019-09-05 11:14] VITALS: BP 122/66; PULSE 96
== END 2019-09-05 11:23 | disposition home or self-care (01) ==
LOC: JINFUSION 09:52
PROVIDERS: ATTEND Internal Medicine
DX: A41.50 Gram-negative sepsis, unspecified (principal)
CPT/HCPCS: 96365

== ENCOUNTER 2019-09-07 09:54 | Day surgery (SDC) | payer OTHER ==
[2019-09-07] MEDS ORDERED: ERTAPENEM SODIUM 1 GM in SODIUM CHLORIDE 50 ML IVPB ONE (10:45)
[2019-09-07] MEDS ORDERED: ERTAPENEM SODIUM 1 GM in SODIUM CHLORIDE 100 ML IVPB ONE (10:45)
[2019-09-07 11:36] VITALS: TEMP 98
[2019-09-07 13:43] VITALS: BP 125/80; PULSE 85
== END 2019-09-07 12:30 | disposition home or self-care (01) ==
LOC: JINFUSION 09:54 → J7W 09:58 → JINFUSION 12:30
PROVIDERS: ATTEND Internal Medicine
DX: A41.50 Gram-negative sepsis, unspecified (principal)
CPT/HCPCS: 96365